=== PATIENT | female | born 1970 | race Caucasian/White ===

== ENCOUNTER 2016-12-11 10:12 | Day surgery (SDC) | payer OTHER ==
[2016-12-09 10:12] VITALS: BMI 48.0
--- NOTE | 2016-12-09 10:50 | PAT Medication Instructions ---
Service Date Dec 09, 2016. Current Home Medication List Amphetamine-Dextroamphetamine 15MG (Adderall Xr 15MG), 25 MG PO QAM Duloxetine HCl (Cymbalta), 1 CAP PO QAM Ferrous Sulfate (Kp Ferrous Sulfate), 1 TAB PO QAM Fluticasone Propionate (Nasal) (Flonase Allergy Relief), 1 SPRAYS ALYCE UD PRN for PRN Folic Acid (Folic Acid), 1 TAB PO QAM Hydrochlorothiazide (Hydrochlorothiazide), 1 TAB PO QAM Indomethacin (Indocin), 50 MG PO BID PRN for Migraine Ipratropium-Albuterol (Combivent Respimat), 1 PUFFS INH QID PRN for SOB/Wheezing Lisinopril (Zestril), 40 MG PO QAM Lorazepam (Ativan), 1 MG PO TID PRN for Anxiety Ondansetron Odt (Zofran Odt), 4 MG SL Q6H PRN for Nausea Oxycodone/Acetaminophen 10MG/325MG (Percocet 10MG/325MG), 1 TAB PO Q4 PRN for Pain Pregabalin (Lyrica), 75 MG PO QAM Pregabalin (Lyrica), 150 MG PO HS Ropinirole (Requip), 1 MG PO QPM Ropinirole (Requip), 2 MG PO HS Simvastatin (Zocor), 40 MG OR QPM Tizanidine (Zanaflex ), 4 MG PO QID PRN for Muscle Spasms Topiramate (Topamax), 100 MG PO QAM Topiramate (Topamax), 200 MG PO QPM [vitamin b12 inj], 1 DOSE IM MONTHLY Medication Instructions For Your Scheduled Surgery Indomethacin (Indocin), 50 MG PO BID PRN for Migraine (takes only with migraines ) Ondansetron Odt (Zofran Odt), 4 MG SL Q6H PRN for Nausea (takes only with migraines) Pregabalin (Lyrica) (patient will check with surgeon for instructions) Vitamin B12 Inj, 1 DOSE IM MONTHLY (continue as usual) - Hold the following medications evening prior to surgery: Ropinirole (Requip), - Hold the following medications the morning of surgery: Tizanidine (Zanaflex ), 4 MG PO QID PRN for Muscle Spasms Lisinopril (Zestril), 40 MG PO QAM Hydrochlorothiazide (Hydrochlorothiazide), 1 TAB PO QAM Folic Acid (Folic Acid), 1 TAB PO QAM Ferrous Sulfate (Kp Ferrous Sulfate), 1 TAB PO QAM Amphetamine-Dextroamphetamine 15MG (Adderall Xr 15MG), 25 MG PO QAM - Take the following medications the morning of surgery with a sip of water: Topiramate (Topamax), 100 MG PO QAM Oxycodone/Acetaminophen 10MG/325MG (Percocet 10MG/325MG), 1 TAB PO Q4 PRN for Pain (can take up to four hours prior to surgery if needed) Lorazepam (Ativan), 1 MG PO TID PRN for Anxiety Ipratropium-Albuterol (Combivent Respimat), 1 PUFFS INH QID PRN for SOB/ Wheezing (bring with you to hospital on day of surgery) Fluticasone Propionate (Nasal) (Flonase Allergy Relief), 1 SPRAYS ALYCE UD PRN for PRN Duloxetine HCl (Cymbalta), 1 CAP PO QAM - Take the following medications as scheduled the night before surgery: Topiramate (Topamax), 200 MG PO QPM Tizanidine (Zanaflex ), 4 MG PO QID PRN for Muscle Spasms Simvastatin (Zocor), 40 MG OR QPM Oxycodone/Acetaminophen 10MG/325MG (Percocet 10MG/325MG), 1 TAB PO Q4 PRN for Pain Lorazepam (Ativan), 1 MG PO TID PRN for Anxiety Ipratropium-Albuterol (Combivent Respimat), 1 PUFFS INH QID PRN for SOB/ Wheezing Fluticasone Propionate (Nasal) (Flonase Allergy Relief), 1 SPRAYS ALYCE UD PRN for PRN If you have any questions please call us at [phone] or [phone] ( [place]) or [phone]
--- NOTE | 2016-12-09 11:14 | DIAGNOSTIC IMAGING REPORT ---
CHEST PREADMISSION(PA/LAT) CLINICAL HISTORY: Preoperative chest. Chronic cough. Smoker. COMPARISON STUDY: No previous studies for comparison. FINDINGS: The heart is normal in size. There is no failure. There is no focal pulmonary consolidation. There are no pleural effusions. There are postsurgical changes present within the cervical spine.[ Slight prominence superior mediastinum, likely secondary to fat deposition given the patient's body habitus. IMPRESSION: No active disease in the chest. Electronically signed by: Diaz Love M.D. 12/09/2016 11:13 AM Dictated Date/Time: 12/09/2016 11:12 AM
[2016-12-09 11:31] LABS: BASO % 0.1 %; BASO ABS # 0.01 K/uL (0-0.2); COMPLETE YES; EOS % 0.7 %; HEMATOCRIT 43.4 % (37-47); IG% 0.2 %; LYMPH % 33.7 %; LYMPH ABS # 3.15 K/uL (1.2-3.4); MEAN CELL VOLUME 88.8 fL (80-100); MEAN CORPUSCULAR HEMOGLOBIN 30.1 pg (25-34); MEAN CORPUSCULAR HGB CONC 33.9 g/dl (32-36); MONO % 7.4 %; NEUT % 57.9 %; PLATELET COUNT 268 K/uL (130-400); RED BLOOD COUNT 4.89 M/uL (4.2-5.4); WHITE BLOOD COUNT 9.35 K/uL (4.8-10.8)
[2016-12-09 11:38] LABS: URINE APPEARANCE CLEAR (CLEAR); URINE BILIRUBIN NEG (NEG); URINE COLOR YELLOW; URINE EPITHELIAL CELL AUTO >30 /lpf (0-5); URINE NITRITE NEG (NEG); URINE PH 6.5 (4.5-7.5); URINE SPECIFIC GRAVITY 1.018 (1.000-1.030); UROBILINOGEN NEG (NEG)
[2016-12-09 11:42] LABS: MANUAL MICROSCOPIC REQUIRED? NO; PARTIAL THROMBOPLASTIN RATIO 1.1; PROTHROMBIN TIME (PATIENT) 10.3 SECONDS (9.0-12.0); REVIEW REQ? NO
[2016-12-09 11:52] LABS: BUN/CREATININE RATIO 12.8 (10-20); CALCIUM 8.4 mg/dl (8.5-10.1); CREATININE 0.61 mg/dl (0.60-1.20); POTASSIUM 4.3 mmol/L (3.5-5.1)
--- NOTE | 2016-12-10 18:54 | HISTORY & PHYSICAL EXAMINATION ---
DATE OF ADMISSION: 12/11/2016 CHIEF COMPLAINT: Left shoulder injury. HISTORY OF PRESENT ILLNESS: This is a 46-year-old female patient of Dr. Figueroa'radha complaining of a left shoulder injury status post a fall in July of 2016. She failed conservative treatment, MRI was confirmed and she does have impingement and a rotator repair the cuff tear. The patient wishes to proceed with a left shoulder arthroscopic subacromial decompression and rotator cuff repair. PAST MEDICAL HISTORY: Hypertension, hypercholesterolemia, asthma, COPD, sleep apnea with the use of CPAP, anxiety, TIA, carpal tunnel syndrome, anemia, osteoarthritis, spine problems, neck problems, sciatica, acid reflux and obesity. SOCIAL HISTORY: She is a 1-1/2 to 1 pack per day smoker for 33 years. She is a nonalcohol user. PAST SURGICAL HISTORY: Neck fusion and tonsillectomy. MEDICATIONS: 1. Ativan 1 mg 3 times daily p.r.n. 2. Combivent 1-2 puffs 4 times daily. 3. Vitamin B12 1000 mcg per month. 4. Cymbalta 30 mg q.a.m. 5. Adderall 25 mg q.a.m. 6. Ferrous sulfate 325 mg daily. 7. Hydrochlorothiazide 25 mg daily. 8. Flonase 50 mcg p.r.n. 9. Folic acid 1 mg daily. 10. Indomethacin 50 mg twice daily. 11. Lisinopril 40 mg daily. 12. Percocet as needed. 13. Requip 1 mg 2 at bedtime. 14. Simvastatin 40 mg at bedtime. 15. Zofran 4 mg as needed. 16. Lyrica 75 mg 1 in the a.m. and 2 at bedtime. ALLERGIES: No known drug allergies. PHYSICAL EXAMINATION: GENERAL: Well-developed, well-nourished 46-year-old female in no acute distress. She is alert and oriented x3 and pleasant. HEENT: Normocephalic, atraumatic. Extraocular motions are intact. Pupils are equal and reactive to light. HEART: Regular rate and rhythm, no murmurs appreciated. LUNGS: Clear. ABDOMEN: Soft, nontender, bowel sounds present. EXTREMITIES: Left shoulder reveals forward elevation, full range of motion. She has 90 degrees of abduction. She has decreased internal rotation. She has 4/5 strength with impingement pain with impingement maneuvering. NEUROLOGIC: Neurovascularly is intact in her left upper extremity. DIAGNOSES: Left shoulder impingement and rotator cuff tear. She also has a history of hypertension, hypercholesterolemia, asthma, chronic obstructive pulmonary disease, sleep apnea with the use of CPAP, chronic bronchitis, anxiety, transient ischemic attack, carpal tunnel syndrome, anemia, osteoarthritis, spine problems, neck problems, sciatica, acid reflux, and obesity. PLAN: The patient was advised of her diagnosis. Indications, risks, benefits, and postop course have all been reviewed. The patient wishes to proceed with a left shoulder arthroscopic subacromial decompression and rotator cuff repair. Necessary consent forms, preoperative testing and clearances will be obtained. IGOR
[~2016-12-11] VITALS: Ht 162.6 cm; Wt 126.4 kg
[~2016-12-11 10:12] MED LIST: AMPH15CA7 PO; ATV/1 PO; BUPIVACAINE 0.5 % 5 MG/1 ML PF 10ML VIAL ONE; CEFAZOLIN 3000 MG/65 ML D5W IV SCH; CYM/30 PO; FERR1TAB13 PO; FLUT0.15 NAE; FLV1 PO; HYDR25TA5 PO; INDO-24 PO; IPRA1AER2 INH; LACTATED RINGER'S 1000ML 1,000 ML IV SCH; LISI40TA PO; MEPIVACAINE HCL 1.5% 30 ML VIAL ONE; ONDA8TAB62 SL; OXYC-106 PO; PREG1CAP28 PO; ROPI1TAB PO; ROPI2TAB6 PO; SIMV10TA5 PO; TOPI100T20 PO; TOPI200T14 PO; ZNF4 PO; [UNRECOGNIZED DRUG - CODE] PO; vitamin b12 inj IM
[2016-12-11] MEDS ORDERED: FENTANYL CITRATE INJ 50 MCG/1 ML 2 ML VIAL ONE ×2 (10:28→12:01)
[2016-12-11] MEDS ORDERED: MIDAZOLAM HCL 1 MG/ML 2ML VIAL ONE ×2 (10:28→11:55)
[2016-12-11 10:30] VITALS: BP 173/98; PULSE 73; TEMP 36.3; O2SAT 97; Ht 162.6 cm; Wt 126.4 kg
--- NOTE | 2016-12-11 10:32 | History & Physical Bridge Note ---
H&P Re-Evaluation Bridge Note: I have examined the patient, reviewed the History & Physical and in the interval since the performance of the History & Physical I have noted the following changes of clinical significance: No changes noted
[2016-12-11] MEDS ORDERED: ROCURONIUM BROMIDE 10 MG/ML 5 ML VIAL ONE (10:33)
[2016-12-11] MEDS ORDERED: LARYING-O-JET KIT (LTA) EXT ONE ×2 (10:33)
[2016-12-11] MEDS ORDERED: PROPOFOL IV EMULSION 10 MG/ML 20 ML VIAL IV ONE (10:33)
[2016-12-11] MEDS ORDERED: LIDOCAINE HCL 2% 2 ML VIAL (20MG/ML) ONE (10:33)
[2016-12-11] MEDS ORDERED: DEXAMETHASONE SOD INJ 4 MG/ML VIAL ONE (12:53)
[2016-12-11] MEDS ORDERED: ONDANSETRON INJ 2 MG/ML 2 ML VIAL ONE (12:53)
[2016-12-11] MEDS ORDERED: PHENYLEPHRINE HCL INJ 10 MG/ML VIAL ONE (13:21)
[2016-12-11] MEDS ORDERED: PHENYLEPHRINE 100MCG/ML 5ML SYR ONE (13:21)
--- NOTE | 2016-12-11 14:01 | [facility] Operative Report ---
Operative Report Operative Date Dec 11, 2016. Pre-Operative Diagnosis Left shoulder inpingement and rotator cuff tear postraumatic but chronic tear Post-Operative Diagnosis same type 1 slap Procedure(s) Performed left shoulder arthroscopic rotator cuff repair and decompression and labral debridement Surgeon Dr Figueroa Gold Assayer Surgeon(s) Lloyd Cooley PA-C Estimated Blood Loss 3ml Findings type 1 slap ,meniscoid superior labrum, high grade bursal rotator cuff tear Specimens None per surgeon Anesthesia regional and general Complication(s) None Disposition Recovery Room / PACU Indications continued pain ,rtc tear s/p injury I attest to the content of the Intraoperative Record and any orders documented therein. Any exceptions are noted below.
[2016-12-11] MEDS ORDERED: SODIUM CHLORIDE 0.9% 1000ML 1,000 ML IV SCH (14:02)
[2016-12-11] MEDS ORDERED: OXYC-57 PO (14:04)
--- NOTE | 2016-12-11 14:08 | Discharge Instructions ---
Discharge Instructions Date of Service Dec 11, 2016. Admission Reason for Admission: Left Shoulder Impingement Syndrome, Rtc Tear Discharge Discharge Diagnosis / Problem: Left shoulder scope, rotoator cuff repair, decompression. Discharge Goals Goal(s): Improve function Activity Recommendations Activity Limitations: as noted below . Instructions / Follow-Up Instructions / Follow-Up See printed post op instruction sheet in chart See printed home exercise sheet. Begin PT next week. Pain meds as ordered. Follow up w Dr. Figueroa 10-12 days post op, call [phone] to confirm appt. Current Hospital Diet Patient's current hospital diet: Discharge Diet Recommended Diet: Regular Diet Procedures Procedures Performed: Left Shoulder Arthroscopic Subacromial Decompression, Rotator Cuff Repair Pending Studies Studies pending at discharge: no Medical Emergencies . Who to Call and When: Medical Emergencies: If at any time you feel your situation is an emergency, please call 911 immediately. . Non-Emergent Contact Non-Emergency issues call your: Primary Care Provider . "Provider Documentation" section prepared by Lloyd Cooley. VTE Core Measure Inpt VTE Proph given/why not?: SCD's [place] Drug Monitoring Program Search Results: patient reviewed within database, no issues identified
[2016-12-11] MEDS ORDERED: ATROPINE SULFATE 0.1 MG/ML 5ML SYR IV PRN (14:15)
[2016-12-11] MEDS ORDERED: ALBUTEROL 0.083% NEBU SOLN 3 ML VIAL INH PRN (14:15)
[2016-12-11] MEDS ORDERED: OXYCODONE/ACETAMINOPHEN 5-325 TAB PO PRN ×2 (14:15)
[2016-12-11] MEDS ORDERED: FLUMAZENIL 0.1 MG/1 ML 10 ML VIAL IV PRN (14:15)
[2016-12-11] MEDS ORDERED: LABETALOL HCL IV 5 MG/ML 20ML IV PRN (14:15)
[2016-12-11] MEDS ORDERED: EpHEDrine SULFATE INJ 50 MG/ML AMP IV PRN (14:15)
[2016-12-11] MEDS ORDERED: ONDANSETRON INJ 2 MG/ML 2 ML VIAL IV PRN (14:15)
[2016-12-11] MEDS ORDERED: PROMETHAZINE HCL INJ 12.5 MG in SODIUM CHLORIDE 0.9% 50ML 50 ML IV PRN (14:15)
[2016-12-11] MEDS ORDERED: NALOXONE HCL 0.4 MG/1 ML VIAL/CARP IV PRN (14:15)
--- NOTE | 2016-12-11 14:18 | Anesthesiology Progress Note ---
Anesthesia Post Op Note Date & Time Dec 11, 2016 at 14:18 Vital Signs Pain Intensity: 2 Vital Signs Past 12 Hours Date Time Temp Pulse Resp B/P Pulse Ox O2 Delivery O2 Flow Rate FiO2 12/11/16 14:01 36.1 84 16 166/80 100 Mask 10 12/11/16 10:30 36.3 73 20 173/98 97 Room Air Notes Mental Status: alert / awake / arousable, participated in evaluation Pt Amnestic to Procedure: Yes Nausea / Vomiting: adequately controlled Pain: adequately controlled Airway Patency, RR, SpO2: stable & adequate BP & HR: stable & adequate Hydration State: stable & adequate Anesthetic Complications: no major complications apparent Pt doing well.
[2016-12-11 14:45] VITALS: BP 128/73; PULSE 77; TEMP 36.7; O2SAT 100
--- NOTE | 2016-12-11 15:43 | OPERATIVE REPORT ---
DATE OF OPERATION: 12/11/2016 INDICATION FOR PROCEDURE: The patient is a 46-year-old female with history of a fall last July. She has ongoing pain, failed conservative management. MRI demonstrates rotator cuff tear with bursitis, impingement, type 3 acromion process. She is also morbidly obese with BMI of 47.8. PREOPERATIVE DIAGNOSES: Left shoulder posttraumatic, but chronic rotator cuff tear and subacromial impingement. Morbid obesity, body mass index of 47.8. POSTOPERATIVE DIAGNOSES: Same including type 1 flap tear. Morbid obesity, body mass index of 47.8. PROCEDURE: Left shoulder arthroscopic rotator cuff repair with subacromial decompression and debridement, subacromial bursa and glenoid labral tear. Some increased difficulty due to morbid obesity. SURGEON: Jerry Figueroa MD CARTON FOLDER: Lloyd Cooley PA-C ANESTHESIA: Regional block and general. DESCRIPTION OF PROCEDURE: The patient had regional block placed and then placed under general anesthetic, positioned on a Schlein shoulder table in the 70 degree beach chair position. Positioning was more difficult due to her obesity. Her left shoulder exam demonstrated an obese arm with good range of motion and no instability. The left upper extremity was prepped and draped with ChloraPrep. Arthroscopy was performed starting with a posterior arthroscopy portal in the soft spot, anterior portal in the rotator interval, a lateral portal in the subacromial space and superior lateral portals for suture anchor placement. In the glenohumeral joint, she had good articular surfaces on the glenoid and the humeral head. She had meniscoid type superior labrum, a cartilaginous cap over the superior glenoid. No clear detachment of the biceps anchor, a negative peel back sign, but did have a small anterior superior inner margin flap type tear and some fraying in the inner margin back to the posterior superior labrum. The rotator cuff looked pristine from the intraarticular view, both supraspinatus and infraspinatus and subscapularis. The biceps anchor was intact. The yared was intact. In the subacromial space, there was chronic subacromial bursitis, a high-grade bursal-sided tear of the posterior aspect of the supraspinatus right adjacent to the infraspinatus attachment. There was small tear with a width of it at the outer diameter being 8-10 mm and it was wider toward the intraarticular margin area so it was more of trapezoidal undersurface type tear with high-grade bursal component that did not go full thickness. There was a type 3 acromion with a substantial spur extending into the CA ligament and some chronic bursitis. In the glenohumeral joint, I did a debridement at the inner margin of the labrum from anterior to posterior and then in the subacromial space, I did a thorough bursectomy removing all pathological bursa. We used a 4.5 resector blade for that. I used a radiofrequency ablator to ablate the bursa and periosteum on the undersurface of the acromion and released the CA ligament off the spur of the anterior acromion process. Then I used a 5.5 bur to plane down the acromion to a type 1 flat shape and plane down some of the lateral edge of the acromion to decompress the subacromial space. The arm was taken through range of motion and rotator cuff moved freely without any impingement at this time. The rotator cuff was then repaired using the 4.5 resector blade to debride the edges of the tear, debrided the footprint of the supraspinatus to bleeding bony surface for repair and then I used a Q-Fix 2.8 mm Jiménez \T\ Nephew anchor at the lateral footprint of the supraspinatus at the edge of the tear. There was good fixation with the anchor. The sutures were passed with expresso suture passer and then tied down with [place] sliding locking knot and 3 reverse half hitches on alternating posts. It had secure fixation to the tuberosity. The repair was secured with the arm at the side with gentle rotation. The skin portal was then closed with nylon sutures. Sterile dressings were applied and a sling immobilizer. PRITESH Silva was my research lab assistant. He functioned as research lab assistant through the entire procedure. He assisted in patient positioning, prepping, draping, arm positioning, instrument and suture management during repair and performed the skin closure and dressings and sling application and will participate in postoperative care of the patient. I attest to the content of the Intraoperative Record and any orders documented therein. Any exceptio ns are noted below.
== END 2016-12-11 16:30 | disposition home or self-care (01) ==
LOC: C.ACU 10:12
PROVIDERS: ATTEND Orthopaedic Surgery Sports Medicine
DX: M75.102 Unspecified rotator cuff tear or rupture of left shoulder, not specified as traumatic (principal); M75.42 Impingement syndrome of left shoulder; E66.01 Morbid (severe) obesity due to excess calories; Z68.42 Body mass index [BMI] 45.0-49.9, adult; I10 Essential (primary) hypertension; E78.5 Hyperlipidemia, unspecified; J45.909 Unspecified asthma, uncomplicated; J44.9 Chronic obstructive pulmonary disease, unspecified; F41.9 Anxiety disorder, unspecified; D64.9 Anemia, unspecified; K21.9 Gastro-esophageal reflux disease without esophagitis; Z86.73 Personal history of transient ischemic attack (TIA), and cerebral infarction without residual deficits

== ENCOUNTER 2017-06-29 07:39 | Day surgery (SDC) | payer OTHER ==
[2017-06-29] VITALS (10 sets, daily range): BP systolic 133–153; BP diastolic 66–84; PULSE 65–79; TEMP 36.4–36.8; O2SAT 93–100; Ht 162.6 cm; Wt 122.7 kg
[~2017-06-29] VITALS: Ht 162.6 cm; Wt 122.7 kg
[~2017-06-29 07:39] MED LIST changes: -BUPIVACAINE 0.5 % 5 MG/1 ML PF 10ML VIAL ONE; -CEFAZOLIN 3000 MG/65 ML D5W IV SCH; -INDO-24 PO; -LACTATED RINGER'S 1000ML 1,000 ML IV SCH; -MEPIVACAINE HCL 1.5% 30 ML VIAL ONE; -OXYC-106 PO
[2017-06-29] MEDS ORDERED: OXYC-106 PO (08:53)
[2017-06-29] MEDS ORDERED: SERT50TA PO (08:53)
--- NOTE | 2017-06-29 10:44 | Discharge Instructions ---
Discharge Instructions Procedure Procedure Date: Jun 29, 2017. Reason for visit: Demyelinating Disorder, Poss Ms. Discharge Discharge Date: Jun 29, 2017. Discharge Diagnosis: Successful fluoroscopic guided lumbar puncture with normal opening pressure. Medications Restart Stopped Medication(s): Resume home meds Instructions Activity Recommendations: No limitations Return to School/Work: no limitations Recommended Home Diet: No Limitations Provider Instructions: Lumbar Puncture performed with Fluoroscopic guidance [ L3-4] level with [ 20G] needle. No complications. Allergies Coded Allergies: No Known Allergies (Verified , 06/29/17) Jerel Martines Recommendations: Call your doctor if: * Temperature above 101 degrees * Pain not relieved by pain medicine ordered * There is increased drainage or redness from any incision * You have any unanswered questions or concerns. Your Doctors Instructions noted above were prepared by provider Patrick Galeas. Patient Signature Section: Patient Instructions Signature Page Cris Palmer Patient (or Guardian) Signature/Date: I have read and understand the instructions given to me by my caregivers. Caregiver/RN/Doctor Signature/Date: The above-named patient and/or guardian has received patient instructions on this date. + Original Patient Signature Page (only) stays with chart. Please make copy for patient.
[2017-06-29] MEDS ORDERED: ACETAMINOPHEN 500 MG TAB PO PRN (10:45)
--- NOTE | 2017-06-29 11:10 | DIAGNOSTIC IMAGING REPORT ---
LUMBAR PUNCTURE DIAGNOSTIC CLINICAL HISTORY: 47 years-old Female presenting with MD ORDER. COMPARISON: Brain MR from 07/28/2016. PROCEDURE: The procedure, risks and benefits were discussed with the patient including the risk of spinal headache, bleeding and infection. The patient agreed to the procedure and informed written consent was obtained. The procedure was performed by Dr. Galeas following a timeout. The L2-3 interlaminar space was targeted. Skin overlying the space was prepped and draped in the usual aseptic fashion and local anesthesia was achieved with 1% lidocaine. Under intermittent fluoroscopic guidance, a 20-gauge x 4 3/4 in. Sprotte needle was inserted into the thecal sac. Opening pressure was obtained and prone positioning, which measured 21 cmH2O. A total of 8 mL of clear, colorless cerebral spinal fluid was obtained and spread amongst 4 vials. The patient tolerated the procedure well. There were no immediate complications. The specimens were sent to the laboratory at the request of the referring physician. Reference range: Normal opening pressure 6-25 cmH2O (95% reference interval for lateral decubitus positioning). Fluoroscopy dosage: Not available. mGy. Fluoroscopy time: 0.6 minutes. Number of fluoroscopic spot images: 1. IMPRESSION: 1. Successful fluoroscopic guided lumbar puncture with removal of 8 mL of clear, colorless cerebral spinal fluid. No immediate complications. 2. Normal opening pressure. Electronically signed by: Patrick Galeas M.D. 06/29/2017 11:09 AM Dictated Date/Time: 06/29/2017 11:08 AM
[2017-06-29 11:12] LABS: CSF APPEARANCE CLEAR; CSF COLOR COLORLESS; CSF XANTHOCHROMIC NO XANTHOCHROMIA
[2017-06-29 11:30] LABS: CSF CHEMISTRY TUBE # 1
[2017-06-29 11:31] LABS: CSF TOTAL PROTEIN 32.2 mg/dl (15.0-45.0)
[2017-06-29 11:52] LABS: BASO % 0.2 %; BASO ABS # 0.02 K/uL (0-0.2); COMPLETE YES; EOS % 0.9 %; HEMATOCRIT 44.3 % (37-47); IG% 0.4 %; LYMPH % 31.9 %; LYMPH ABS # 2.88 K/uL (1.2-3.4); MEAN CELL VOLUME 92.5 fL (80-100); MEAN CORPUSCULAR HEMOGLOBIN 30.9 pg (25-34); MEAN CORPUSCULAR HGB CONC 33.4 g/dl (32-36); MONO % 6.1 %; NEUT % 60.5 %; PLATELET COUNT 256 K/uL (130-400); RED BLOOD COUNT 4.79 M/uL (4.2-5.4); WHITE BLOOD COUNT 9.03 K/uL (4.8-10.8)
[2017-06-29 12:22] LABS: ALT/SGPT 15 U/L (12-78); AST/SGOT < 3 U/L (15-37); BLOOD UREA NITROGEN 7 mg/dl (7-18); BUN/CREATININE RATIO 16.6 (10-20); CALCIUM 8.3 mg/dl (8.5-10.1); CARBON DIOXIDE 24 mmol/L (21-32); CHLORIDE 108 mmol/L (98-107); CREATININE 0.43 mg/dl (0.60-1.20); GLUCOSE 96 mg/dl (70-99); POTASSIUM 3.6 mmol/L (3.5-5.1); SODIUM 140 mmol/L (136-145)
[2017-06-29 12:28] LABS: ESTIMATED AVERAGE GLUCOSE 120 mg/dl; HA1C FLAG Normal (Normal)
[2017-06-29 12:34] LABS: ALKALINE PHOSPHATASE 79 U/L (45-117); THYROID STIMULATING HORMONE 0.967 uIu/ml (0.300-4.500)
[2017-06-29 13:59] LABS: LYME DISEASE AB IGG NEG (NEG); LYME DISEASE AB IGM NEG (NEG)
[2017-07-03 08:35] LABS: ALBUMIN 3.4 g/dL (3.5-4.9); IGG CSF 5.6 mg/dL (0.8-7.7); IGG SERUM 775 mg/dL (694-1618); LYME DNA PCR CSF OR SYNOVIAL Not detected (Not Detected); LYME DNA SOURCE CSF; LYME IGG CSF NO BANDS DETECTED; LYME IGM CSF NO BANDS DETECTED; MYELIN BASIC PROTEIN 663 <2.0 mcg/L (0.0-4.0)
== END 2017-06-29 14:55 | disposition home or self-care (01) ==
LOC: C.ACU 07:39
PROVIDERS: ATTEND Psychiatry & Neurology Neurology
DX: G37.9 Demyelinating disease of central nervous system, unspecified (principal); E53.8 Deficiency of other specified B group vitamins; Z80.9 Family history of malignant neoplasm, unspecified; Z82.62 Family history of osteoporosis; R51 Headache; R20.2 Paresthesia of skin; R25.1 Tremor, unspecified; M79.1 Myalgia; E11.9 Type 2 diabetes mellitus without complications; E78.2 Mixed hyperlipidemia; R60.9 Edema, unspecified; I10 Essential (primary) hypertension; E55.9 Vitamin D deficiency, unspecified

== ENCOUNTER 2017-11-27 16:32 | Inpatient (IN) | payer OTHER ==
[~2017-11-27] VITALS: Ht 162.6 cm; Wt 125.3 kg
[~2017-11-27 16:32] MED LIST changes: -CYM/30 PO; +OXYC-106 PO; +SERT50TA PO
[2017-11-27] MEDS ORDERED: [UNRECOGNIZED DRUG - CODE] PO (17:10)
[2017-11-27] MEDS ORDERED: CYNI1000 IM (17:10)
[2017-11-27] MEDS ORDERED: TPM100 PO (17:10)
[2017-11-27] MEDS ORDERED: SIMV40TA4 PO (17:10)
[2017-11-27] MEDS ORDERED: CHOLCAP5 PO (17:10)
[2017-11-27] MEDS ORDERED: CYCL10TA6 PO (17:10)
[2017-11-27] MEDS ORDERED: FERR325T5 PO (17:10)
[2017-11-27] MEDS ORDERED: SERT1TAB68 PO (17:10)
[2017-11-27] MEDS ORDERED: AMPH20CA3 PO (17:10)
[2017-11-27] MEDS ORDERED: CPXI SC (17:10)
--- NOTE | 2017-11-27 17:36 | DIAGNOSTIC IMAGING REPORT ---
CHEST 2 VIEWS ROUTINE CLINICAL HISTORY: EVALUATE HEADACHE COMPARISON STUDY: Chest radiograph December 09, 2016. FINDINGS: Anterior cervical spine fusion is incidentally noted. Lung volumes are normal. Lungs are clear. No pneumothorax or pleural effusion is noted. There is no evidence for pulmonary edema. Cardiomediastinal silhouette is unremarkable. IMPRESSION: No acute cardiopulmonary findings. Electronically signed by: Gian Cheney M.D. 11/27/2017 5:35 PM Dictated Date/Time: 11/27/2017 5:33 PM
[2017-11-27 17:37] LABS: BASO % 0.2 %; BASO ABS # 0.03 K/uL (0-0.2); EOS % 0.5 %; EOS ABS # 0.06 K/uL (0-0.5); HEMATOCRIT 43.5 % (37-47); HEMOGLOBIN 14.6 g/dL (12.0-16.0); IG# 0.05 K/uL (0.00-0.02); LYMPH % 35.8 %; LYMPH ABS # 4.32 K/uL (1.2-3.4); MEAN CORPUSCULAR HEMOGLOBIN 30.5 pg (25-34); MEAN CORPUSCULAR HGB CONC 33.6 g/dl (32-36); MEAN PLATELET VOLUME 8.7 fL (7.4-10.4); MONO % 6.6 %; NEUT % 56.5 %; PLATELET COUNT 279 K/uL (130-400); RED CELL DISTRIBUTION WIDTH CV 13.2 % (11.5-14.5); RED CELL DISTRIBUTION WIDTH SD 43.6 fL (36.4-46.3); WHITE BLOOD COUNT 12.06 K/uL (4.8-10.8)
[2017-11-27 17:43] LABS: CALCIUM 8.8 mg/dl (8.5-10.1); CREATININE 0.74 mg/dl (0.60-1.20); POTASSIUM 3.8 mmol/L (3.5-5.1)
[2017-11-27 17:57] LABS: PTT PATIENT 24.7 SECONDS (21.0-31.0)
[2017-11-27] MEDS ORDERED: ATORVASTATIN 40 MG TAB PO STA (18:29)
[2017-11-27] MEDS ORDERED: ASPIRIN 324 MG CHEW PO STA (18:29)
--- NOTE | 2017-11-27 19:10 | EMERGENCY ROOM VISIT NOTE ---
History Report prepared by Pennie: Tommy Marrero Under the Supervision of: Dr. Aki Gregory M.D. First contact with patient: 16:34 Stated Complaint: REFFERRED BY DOCTOR. POSSIBLE BLEED History of Present Illness The patient is a 47 year old white female with a past medical history of MS who presents to the ED with a cc of waxing and waning neurologic symptoms beginning one week ago. Symptoms include right sided weakness, and headaches. Patient was transferred from [facility] due to having a brain MRI concerning for CVA ( about 7.5 hours ago). Symptoms have improved today. Positive: nausea. Negative: vomiting. No blood thinners. No recent falls. Recently on Prednisone for a migraine. No chance of . Source of History: patient Onset: A week ago Position: other (right side) Quality: other (neurologic symptoms) Timing: waxes/wanes Associated Symptoms: + headache, + nausea, + weakness (right-sided), No vomiting Review of Systems See HPI for pertinent positives and negatives. A total of ten systems were reviewed and were otherwise negative. Past Medical & Surgical Medical Problems: (1) Multiple sclerosis Family History No pertinent family history stated. Social History Smoking Status: Current Every Day Smoker Occupation Status: employed Current/Historical Medications Scheduled Amphetamine-Dextroamphetamine 20MG (Adderall Xr 20MG), 20 MG PO QAM Cholecalciferol (Vitamin D3), 5,000 INTER.UNIT PO DAILY Cyanocobalamin (Cyanocobalamin), 1,000 MCG IM MONTHLY Ferrous Sulfate (Ferrous Sulfate), 325 MG PO QAM Folic Acid (Folic Acid), 1 MG PO QAM Glatiramer Acetate (Copaxone), 20 MG SC DAILY Lisinopril (Zestril), 40 MG PO QAM Pregabalin (Lyrica), 75 MG PO QAM Pregabalin (Lyrica), 150 MG PO HS Ropinirole (Requip), 2 MG PO HS Sertraline Hcl (Zoloft), 200 MG PO DAILY Simvastatin (Zocor), 40 MG PO QPM Topiramate (Topamax), 100 MG PO QAM Topiramate (Topiramate), 200 MG PO QPM Scheduled PRN Cyclobenzaprine Hcl (Flexeril), 10 MG PO TID PRN for Muscle Spasm Fluticasone Propionate (Nasal) (Flonase Allergy Relief), 2 SPRAYS ALYCE DAILY PRN for Allergy Symptoms Ipratropium-Albuterol (Combivent Respimat), 1 PUFF INH QID PRN for SOB/Wheezing Ondansetron Odt (Zofran Odt), 8 MG SL Q6H PRN for Nausea Oxycodone/Acetaminophen 10MG/325MG (Percocet 10MG/325MG), 1-2 TABS PO Q4H PRN for Pain Allergies Coded Allergies: No Known Allergies (Verified , 06/29/17) Physical Exam Vital Signs Date Time Temp Pulse Resp B/P (MAP) Pulse Ox O2 Delivery O2 Flow Rate FiO2 11/27/17 18:40 74 18 149/83 99 Room Air 11/27/17 16:45 75 11/27/17 16:43 36.6 73 18 176/88 97 Room Air Physical Exam GENERAL: Obese. Awake, alert, well-appearing, NAD HENT: Normocephalic, atraumatic. EYES: Normal conjunctiva. Sclera non-icteric. Xanthelasma over the bilateral eyes. NECK: Supple. No nuchal rigidity. FROM. RESPIRATORY: CTAB, no rhonchi, wheezing, crackles CARDIAC: RRR, no MRG ABDOMEN: Soft, NTND, BS+ MSK: No chest wall TTP, no LE edema NEURO: CN 2-12 intact, 5/5 left upper and lower extremity strength, no dysmetria , no drift, good finger to nose, no sensory deficits. 4/5 RUE strength with flexion and extension. 4/5 RLE strength with flexion and extension. SKIN: No rash or jaundice noted. Medical Decision & Procedures ER Provider Diagnostic Interpretation: Radiology results as stated below per my review and radiologist interpretation: CHEST 2 VIEWS ROUTINE FINDINGS: Anterior cervical spine fusion is incidentally noted. Lung volumes are normal. Lungs are clear. No pneumothorax or pleural effusion is noted. There is no evidence for pulmonary edema. Cardiomediastinal silhouette is unremarkable. IMPRESSION: No acute cardiopulmonary findings. Electronically signed by: Gian Cheney M.D. 11/27/2017 5:35 PM Laboratory Results 11/27/17 17:16 Red Blood Count 4.78, Mean Corpuscular Volume 91.0, Mean Corpuscular Hemoglobin 30.5, Mean Corpuscular Hemoglobin Concent 33.6, Mean Platelet Volume 8.7, Neutrophils (%) (Auto) 56.5, Lymphocytes (%) (Auto) 35.8, Monocytes (%) (Auto) 6.6, Eosinophils (%) (Auto) 0.5, Basophils (%) (Auto) 0.2, Neutrophils # (Auto) 6.80, Lymphocytes # (Auto) 4.32, Monocytes # (Auto) 0.80, Eosinophils # (Auto) 0.06, Basophils # (Auto) 0.03 11/27/17 17:16 Test 11/27/17 16:53 11/27/17 17:16 White Blood Count 12.06 K/uL (4.8-10.8) Red Blood Count 4.78 M/uL (4.2-5.4) Hemoglobin 14.6 g/dL (12.0-16.0) Hematocrit 43.5 % (37-47) Mean Corpuscular Volume 91.0 fL (80-100) Mean Corpuscular Hemoglobin 30.5 pg (25-34) Mean Corpuscular Hemoglobin Concent 33.6 g/dl (32-36) Platelet Count 279 K/uL (130-400) Mean Platelet Volume 8.7 fL (7.4-10.4) Neutrophils (%) (Auto) 56.5 % Lymphocytes (%) (Auto) 35.8 % Monocytes (%) (Auto) 6.6 % Eosinophils (%) (Auto) 0.5 % Basophils (%) (Auto) 0.2 % Neutrophils # (Auto) 6.80 K/uL (1.4-6.5) Lymphocytes # (Auto) 4.32 K/uL (1.2-3.4) Monocytes # (Auto) 0.80 K/uL (0.11-0.59) Eosinophils # (Auto) 0.06 K/uL (0-0.5) Basophils # (Auto) 0.03 K/uL (0-0.2) RDW Standard Deviation 43.6 fL (36.4-46.3) RDW Coefficient of Variation 13.2 % (11.5-14.5) Immature Granulocyte % (Auto) 0.4 % Immature Granulocyte # (Auto) 0.05 K/uL (0.00-0.02) Prothrombin Time 10.1 SECONDS (9.0-12.0) Prothromb Time International Ratio 1.0 (0.9-1.1) Activated Partial Thromboplast Time 24.7 SECONDS (21.0-31.0) Partial Thromboplastin Ratio 1.0 Anion Gap 5.0 mmol/L (3-11) Est Creatinine Clear Calc Drug Dose 124.4 ml/min Estimated GFR () 112.6 Estimated GFR (Non- 97.2 BUN/Creatinine Ratio 12.6 (10-20) Calcium Level 8.8 mg/dl (8.5-10.1) Laboratory results reviewed by me Medications Administered Medications (Trade) Dose Ordered Sig/Vannessa Route Start Time Stop Time Status Last Admin Dose Admin Aspirin (Aspirin Chew) 324 mg NOW STAT PO 11/27/17 18:29 11/27/17 18:30 DC 11/27/17 18:47 324 MG Atorvastatin Calcium (Lipitor Tab) 40 mg ONE STAT PO 11/27/17 18:29 11/27/17 18:30 DC 11/27/17 19:15 40 MG ECG Per My Interpretation Indication: other (neurologic symptoms) Rate (beats per minute): 72 Rhythm: normal sinus Findings: T-wave inversion (lead 3. ), other (Normal axis. Normal intervals. No other STS or TWI. ) ED Course 1641: The patient was evaluated in room B4B. A complete history and physical exam was performed. 0: Upon reexamination, the patient was resting comfortably. I discussed the test results and treatment plan with her. The patient will be evaluated for further management. Medical Decision The patient is a 47 year old white female with a past medical history of MS who presents to the ED with a cc of waxing and waning neurologic symptoms beginning one week ago. Differential diagnosis: Etiologies such as metabolic, infection, hypo/hyperglycemia, electrolyte abnormalities, cardiac sources, intracerebral event, toxicologic, neurologic, as well as others were entertained. Patient was seen and evaluated at the bedside. Patient has had some neuro symptoms which include some weakness of the right side in addition to some headache. Patient does have a prior history of MS and is on Copaxone. Patient denies any falls. Patient has been on prednisone but no other blood thinning medications. Patient does have some objective deficits of the right side right upper extremity greater than right lower extremity. Patient does not have any cranial nerve deficits or visual complaints. Patient did have an MRI completed earlier today which does show watershed infarct in the left temporal frontal and occipital areas. Patient was given a full dose aspirin as well as high- dose statin. I did speak with the on-call hospitalist who agreed to further evaluate and treat the patient. I also did discuss the patient with the patient 's primary neurologist to did agree with the plan of care which would include a further stroke workup. Medication Reconcilliation Current Medication List: was personally reviewed by me Blood Pressure Screening Patient's blood pressure: Elevated blood pressure Blood pressure disposition: Referred to PCP Consults Time Called: 1649 Consulting Physician: Dr. Prado - Neurology Returned Call: [phone] Discussed the patient's case. Dr. Prado recommends the patient should be admitted to the hospital for stroke work-up. Additional Consults: Time Called: 1819 Consulted Physician: Dr. Dean Shore Hospitalist Returned Call: [phone] Additional Comments: Discussed the patient's case. The patient will be evaluated for further treatment and disposition. Impression Primary Impression: Ischemic cerebrovascular accident (CVA) Additional Impression: Right sided weakness Scribe Attestation The scribe's documentation has been prepared under my direction and personally reviewed by me in its entirety. I confirm that the note above accurately reflects all work, treatment, procedures, and medical decision making performed by me. Departure Information Dispostion Being Evaluated By Hospitalist Kevin Pimentel M.D. (PCP) Problem Qualifiers
--- NOTE | 2017-11-27 19:41 | History and Physical ---
History & Physical Date & Time of Service: Nov 27, 2017 at 19:40 Chief Complaint: Refferred By Doctor. Possible Bleed Primary Care Physician: Damaris Gibson.Carloz PA-C History of Present Illness Source: patient 47 yo F with medical hx of Multiple sclerosis , depression , migraine headache , HTN , hyperlipidemia -follows with Neurology Dr Prado Pt has been having intermittent weakness , numbness of rt arm , blurred vision , imbalance for past 1 week her rt arm sometimes feels wt , she could not control , can not use to hold any object , few hrs later symptoms resolved pt was ordered out pt MRI at [facility] -shows acute /sub acute CVA on rt Frontal , frontoparietal , occipital area report of MRI updated to neurology pt was instructed to come to [facility] ER during my interview , pt does not exhibit any focal deficit, speech fluent , no motor /sensory deficit , had left frontal headache -chronic migraine no complain of fever or chills no SOB /chest discomfort /no palpitation , no fall or syncope Social History Smoking Status: Current Every Day Smoker Housing status: lives with family Occupational Status: employed Immunizations History of Influenza Vaccine: N/A History of Tetanus Vaccine?: Yes Tetanus Immunization Date: May 29, 2004 History of Pneumococcal: No History of Hepatitis B Vaccine: No Multi-Drug Resistant Organisms History of MDRO: No Allergies Coded Allergies: No Known Allergies (Verified , 06/29/17) Home Medications Scheduled Amphetamine-Dextroamphetamine 20MG (Adderall Xr 20MG), 20 MG PO QAM Cholecalciferol (Vitamin D3), 5,000 INTER.UNIT PO DAILY Cyanocobalamin (Cyanocobalamin), 1,000 MCG IM MONTHLY Ferrous Sulfate (Ferrous Sulfate), 325 MG PO QAM Folic Acid (Folic Acid), 1 MG PO QAM Glatiramer Acetate (Copaxone), 20 MG SC DAILY Lisinopril (Zestril), 40 MG PO QAM Pregabalin (Lyrica), 75 MG PO QAM Pregabalin (Lyrica), 150 MG PO HS Ropinirole (Requip), 2 MG PO HS Sertraline Hcl (Zoloft), 200 MG PO DAILY Simvastatin (Zocor), 40 MG PO QPM Topiramate (Topamax), 100 MG PO QAM Topiramate (Topiramate), 200 MG PO QPM Scheduled PRN Cyclobenzaprine Hcl (Flexeril), 10 MG PO TID PRN for Muscle Spasm Fluticasone Propionate (Nasal) (Flonase Allergy Relief), 2 SPRAYS ALYCE DAILY PRN for Allergy Symptoms Ipratropium-Albuterol (Combivent Respimat), 1 PUFF INH QID PRN for SOB/Wheezing Ondansetron Odt (Zofran Odt), 8 MG SL Q6H PRN for Nausea Oxycodone/Acetaminophen 10MG/325MG (Percocet 10MG/325MG), 1-2 TABS PO Q4H PRN for Pain Review of Systems Constitutional: + weakness, + fatigue Eyes: + problem reported (episode of blurred vision ) Respiratory: No cough, No sputum, No wheezing, No shortness of breath, No dyspnea on exertion, No dyspnea at rest, No hemoptysis, No problem reported Cardiovascular: No chest pain, No orthopnea, No PND, No edema, No claudication , No palpitations, No problem reported Abdomen: No pain, No nausea, No vomiting, No diarrhea, No constipation, No GI bleeding, No problem reported Musculoskeletal: No joint pain, No muscle pain, No swelling, No calf pain, No problem reported Genitourinary - Female: No dysuria, No urinary frequency, No urinary urgency, No urinary incontinence, No urinary retention, No hematuria, No dysmenorrhea, No menorrhagia, No metrorrhagia, No rash, No vaginal bleeding, No vaginal discharge, No vaginal itching, No vulvodynia, No , No problem reported Neurologic: + paralysis (rt sided weakness , resolved ), + weakness (rt sided upper ext ), + balance problems Psychiatric: + depression symptoms, + anxiety Endocrine: + fatigue Physical Exam Vital Signs Date Time Temp Pulse Resp B/P (MAP) Pulse Ox O2 Delivery O2 Flow Rate FiO2 11/27/17 18:40 74 18 149/83 99 Room Air 11/27/17 16:45 75 11/27/17 16:43 36.6 73 18 176/88 97 Room Air General Appearance: no apparent distress Head: normocephalic, atraumatic Eyes: PERRL, EOMI, sclerae normal Neck: supple, no JVD, no carotid bruits, trachea midline Respiratory/Chest: lungs clear, normal breath sounds, no respiratory distress Cardiovascular: regular rate, rhythm, no edema, no JVD, no murmur, normal peripheral pulses Abdomen/GI: normal bowel sounds, non tender, soft Extremities/Musculoskelatal: normal capillary refill, + pedal edema (+ 1-2 chronic ) Neurologic/Psych: no motor/sensory deficits, alert, normal mood/affect, oriented x 3 Skin: normal color, warm/dry, no rash Lymphatic: no adenopathy Diagnostics Laboratory Results Results Past 24 Hours Test 11/27/17 16:53 11/27/17 17:16 11/27/17 19:31 Range/Units White Blood Count 12.06 4.8-10.8 K/uL Red Blood Count 4.78 4.2-5.4 M/uL Hemoglobin 14.6 12.0-16.0 g/dL Hematocrit 43.5 37-47 % Mean Corpuscular Volume 91.0 80-100 fL Mean Corpuscular Hemoglobin 30.5 25-34 pg Mean Corpuscular Hemoglobin Concent 33.6 32-36 g/dl Platelet Count 279 130-400 K/uL Mean Platelet Volume 8.7 7.4-10.4 fL Neutrophils (%) (Auto) 56.5 % Lymphocytes (%) (Auto) 35.8 % Monocytes (%) (Auto) 6.6 % Eosinophils (%) (Auto) 0.5 % Basophils (%) (Auto) 0.2 % Neutrophils # (Auto) 6.80 1.4-6.5 K/uL Lymphocytes # (Auto) 4.32 1.2-3.4 K/uL Monocytes # (Auto) 0.80 0.11-0.59 K/uL Eosinophils # (Auto) 0.06 0-0.5 K/uL Basophils # (Auto) 0.03 0-0.2 K/uL RDW Standard Deviation 43.6 36.4-46.3 fL RDW Coefficient of Variation 13.2 11.5-14.5 % Immature Granulocyte % (Auto) 0.4 % Immature Granulocyte # (Auto) 0.05 0.00-0.02 K/uL Prothrombin Time 10.1 9.0-12.0 SECONDS Prothromb Time International Ratio 1.0 0.9-1.1 Activated Partial Thromboplast Time 24.7 21.0-31.0 SECONDS Partial Thromboplastin Ratio 1.0 Sodium Level 138 136-145 mmol/L Potassium Level 3.8 3.5-5.1 mmol/L Chloride Level 107 98-107 mmol/L Carbon Dioxide Level 27 21-32 mmol/L Anion Gap 5.0 3-11 mmol/L Blood Urea Nitrogen 9 7-18 mg/dl Creatinine 0.74 0.60-1.20 mg/dl Est Creatinine Clear Calc Drug Dose 124.4 ml/min Estimated GFR () 112.6 Estimated GFR (Non- 97.2 BUN/Creatinine Ratio 12.6 10-20 Random Glucose 81 70-99 mg/dl Calcium Level 8.8 8.5-10.1 mg/dl Diagnostic Radiology MRI OF BRAIN WITH AND WITH OUT CONTRAST Done at [facility] on 11/27/17 12:06 PM Impression : Diffusion -weighted imaging demonstrates multiple small areas of restricted diffusion in the left frontal , temporal-parietal and occipital regions consistent with an acute cortica watershed infract , There is T2/FLAIR hyperintensity in the left frontal lobe and a gyral pattern , There is no intracranial Hge , midline shift, mass effect or extra -axial fluid collection Impression Assessment and Plan ACUTE /SUB ACUTE CVA : presented with intermitted rt sided neurological deficit for last 1 week MRI of Brain done in outside hospital shows acute /subacute CVA -does not have identifiable rt sided deficit now no Facial droop , motor strength and sensation intact , no pronator drift monitor in Tele ordered for Carotid Doppler /resting ECHO telemonitor to R/o Cardiac arrhythmia ordered Aspirin /Plavix neurology eval requested repeat MRI of brain in AM MULTIPLE SCLEROSIS : follows with Neurology Dr Eve Lebron HTN : BP stable will hold ACEI to allow permissive HTN in setting of acute CVA DEPRESSION : cont SSRI HX OF SPINAL STENOSIS /NEUROPATHY : on Lyrica , PRN Oxycodone continued HX OF RESTLESS SYNDROME ; Cont Requip CHRONIC MIGRAINE HEADACHE : on Topamax FULL CODE DVT PROPHYLAXIS sub q heparin DISPOSITION ; expected to be discharged home when medically stable Neurology follow up with Dr Prado Level of Care Telemetry Resuscitation Status FULL RESUSCITATION VTE Prophylaxis VTE Risk Assessment Done? Y/N: Yes Risk Level: Moderate Given or contraindicated: Unfractionated heparin SQ
[2017-11-27] MEDS ORDERED: NITROGLYCERIN 0.4 MG SL PER TAB CHARGE SL PRN (19:45)
[2017-11-27] MEDS ORDERED: ACETAMINOPHEN 325 MG TAB PO PRN (19:45)
[2017-11-27] MEDS ORDERED: MAGNESIUM HYDROXIDE SUSP 30 ML UDC PO PRN (19:45)
[2017-11-27] MEDS ORDERED: ALUMINUM/MAGNESIUM/SIMETH (MAALOX MAX) 30 ML UDC PO PRN (19:45)
[2017-11-27] MEDS ORDERED: ONDANSETRON INJ 2 MG/ML 2 ML VIAL IV PRN (19:45)
[2017-11-27] MEDS ORDERED: POLYETHYLENE (MIRALAX) 17 GM PACK PO PRN (19:45)
[2017-11-27] MEDS ORDERED: PHARMACIST DISCHARGE MED REC CONSULT PRN (19:45)
[2017-11-27 21:12] VITALS: BP 145/86; PULSE 79; TEMP 36.6; O2SAT 96; Ht 162.6 cm; Wt 125.3 kg
--- NOTE | 2017-11-27 21:24 | DIAGNOSTIC IMAGING REPORT ---
ULTRASOUND OF THE CAROTID ARTERIES CLINICAL HISTORY: Stroke COMPARISON STUDY: None. TECHNIQUE: Real-time, grayscale, and color Doppler sonography of the carotid arteries was performed. Imaging reviewed in the transverse and longitudinal planes. NASCET criteria was utilized for stenosis calcification. FINDINGS: There is moderate atherosclerotic plaque present at the left carotid bifurcation. The peak systolic velocity within the right internal carotid artery is 97 cm/sec. The systolic velocity ratio of right internal to common carotid artery is 1.0. The peak systolic velocity within the left internal carotid artery is 196 cm/sec. The systolic velocity ratio left internal to common carotid artery is 2.8. Antegrade flow is seen in the vertebral arteries. The external carotid arteries are patent. There is a multinodular thyroid gland including a circumscribed wider than tall 15 mm isoechoic left lobe nodule IMPRESSION: 50-69% stenosis of the left internal carotid artery Electronically signed by: Diaz Love M.D. 11/27/2017 9:22 PM Dictated Date/Time: 11/27/2017 9:19 PM
[2017-11-27] MEDS ORDERED: OXYCODONE/ACETAMINOPHEN 7.5-325 TAB PO ONE (22:30)
[2017-11-27 22:57] VITALS: BP 124/76; PULSE 69; TEMP 36.6; O2SAT 96
[2017-11-28] VITALS (7 sets, daily range): BP systolic 120–172; BP diastolic 79–94; PULSE 63–83; TEMP 36.5–36.8; O2SAT 94–98
[2017-11-28] MEDS ORDERED: IPRATROPIUM BROMIDE/ALBUTEROL respimat INH INH PRN (01:15)
[2017-11-28] MEDS ORDERED: NON-FORMULARY MEDICATION (Glatiramer Acetate (Copaxone) 20 MG) SC SCH (01:15)
[2017-11-28] MEDS ORDERED: ONDANSETRON 8MG OD TAB SL PRN (01:15)
[2017-11-28 06:48] LABS: HEMOGLOBIN A1C 5.9 % (4.5-5.6)
[2017-11-28] MEDS ORDERED: PERFLUTREN LIPID MICROSPHERE (DEFINITY) IV ONE (07:46)
[2017-11-28] MEDS: CYCLOBENZAPRINE HCL 10 MG TAB PO PRN (08:32)
[2017-11-28] MEDS: SERTRALINE HCL 100 MG TAB PO SCH (08:32)
[2017-11-28] MEDS: TOPIRAMATE 100 MG TAB PO SCH ×2 (08:32→20:51)
[2017-11-28] MEDS: CHOLECALCIFEROL 1000 INTER.UNIT TAB PO SCH (08:33)
[2017-11-28] MEDS: FERROUS SULFATE 325 MG TAB PO SCH (08:33)
[2017-11-28] MEDS: CLOPIDOGREL BISULFATE 75 MG TAB PO SCH (08:34)
[2017-11-28] MEDS: ASPIRIN 81 MG ECTAB PO SCH (08:34)
[2017-11-28] MEDS: PREGABALIN 75 MG CAP PO SCH ×2 (08:39→20:50)
[2017-11-28] MEDS: AMPHETAMINE ASP/SULF/DEXTRAMPH ER 20 MG CAP PO SCH (08:39)
[2017-11-28] MEDS ORDERED: ASPIRIN 81 MG ECTAB PO SCH (09:00)
[2017-11-28] MEDS ORDERED: LISINOPRIL 40 MG TAB PO SCH (09:00)
--- NOTE | 2017-11-28 09:32 | Neurology Consultation ---
Neurology Consultation Date of Consultation: Nov 28, 2017. Attending Physician: Wing Montoya M.D. Primary Care Physician: Damaris Gibson.Carloz PA-C Reason for Consultation: Stroke History of Present Illness Source: patient, hospital records The patient is a 47-year-old female with a chief complaint of weakness. The weakness affected the right side, primarily the arm although the face and leg were also involved to a lesser degree. The weakness was noted upon awakening, 3 days ago, and had been associated with a left-sided headache that began about 1 week prior. She was seen in neurology clinic at that time, and noted to have mild weakness of the right arm. She has a history of multiple sclerosis that was diagnosed about 5 months ago. She has been taking Copaxone since July. Past medical history also notable for episodic migraine. A brain MRI was recommended and completed at [facility] yesterday. I was contacted by the radiologist yesterday afternoon who informed me that her recent MRI suggested an acute left hemispheric watershed type infarct. Past medical history is also notable for hypertension, hyperlipidemia, and previous heavy tobacco use, 2 packs per day for many years. I had contacted the patient yesterday and recommended admission to the hospital for further evaluation and management of suspected recent stroke. Currently, the patient reports that her headache is modestly improved. She had been prescribed a corticosteroid taper at her appointment on Thursday. She reports that her right-sided weakness is nearly resolved although the right hand still feels slightly heavy or weak. She denies any vision loss or sensory loss at this time. She recalls having some difficulty with word finding or speech production at the time she first noted her right-sided weakness. This issue has also resolved. Past Medical/Surgical History Medical Problems: (1) Ischemic cerebrovascular accident (CVA) Status: Acute (2) Right sided weakness Status: Acute Family History Family history notable for heart disease in the mother Social History Occupation Status: employed Allergies Coded Allergies: No Known Allergies (Verified , 06/29/17) Current Inpatient Medications Current Inpatient Medications Medications (Trade) Dose Ordered Sig/Vannessa Route Start Time Stop Time Status Last Admin Dose Admin Aspirin (Ecotrin Tab) 81 mg QAM PO 11/28/17 09:00 12/28/17 08:59 11/28/17 08:34 81 MG Clopidogrel Bisulfate (plAVix TAB) 75 mg QAM PO 11/28/17 09:00 12/28/17 08:59 11/28/17 08:34 75 MG Miscellaneous Information (Pharmacist Discharge Med Rec Consult) 1 ea UD PRN N/A 11/27/17 19:45 12/27/17 19:44 Acetaminophen (Tylenol Tab) 650 mg Q4H PRN PO 11/27/17 19:45 12/27/17 19:44 Al Hydrox/Mg Hydrox/Simethicone (Maalox Max Susp) 15 ml Q4H PRN PO 11/27/17 19:45 12/27/17 19:44 Magnesium Hydroxide (Milk Of Magnesia Susp) 30 ml Q12H PRN PO 11/27/17 19:45 12/27/17 19:44 Ondansetron HCl (Zofran Inj) 4 mg Q6H PRN IV 11/27/17 19:45 12/27/17 19:44 Nitroglycerin (Nitrostat Tab) 0.4 mg UD PRN SL 11/27/17 19:45 12/27/17 19:44 Polyethylene (Miralax Powder Packet) 17 gm DAILY PRN PO 11/27/17 19:45 12/27/17 19:44 Amphetamine Aspartate/ Amphetam Sulf (Amphetamine Aspartate/Amphe Sulf/Dextramphet) 20 mg QAM PO 11/28/17 09:00 12/12/17 08:59 11/28/17 08:39 20 MG Cyclobenzaprine HCl (Flexeril Tab) 10 mg TID PRN PO 11/28/17 01:15 12/28/17 01:14 11/28/17 08:32 10 MG Ferrous Sulfate (Feosol Tab) 325 mg QAM PO 11/28/17 09:00 12/28/17 08:59 11/28/17 08:33 325 MG Folic Acid (Folvite Tab) 1 mg QAM PO 11/28/17 09:00 12/28/17 08:59 11/28/17 08:32 1 MG Albuterol/ Ipratropium (Combivent Respimat Inh) 1 puffs QID PRN INH 11/28/17 01:15 12/28/17 01:14 Ondansetron HCl (Zofran Odt) 8 mg Q6H PRN SL 11/28/17 01:15 12/28/17 01:14 Oxycodone/ Acetaminophen (Percocet 10-325MG Tab) 1 tab Q4H PRN PO 11/28/17 01:15 12/12/17 01:14 Pregabalin (Lyrica Cap) 75 mg QAM PO 11/28/17 09:00 12/28/17 08:59 11/28/17 08:39 75 MG Pregabalin (Lyrica Cap) 150 mg HS PO 11/28/17 21:00 12/28/17 20:59 Ropinirole HCl (Requip Tab) 2 mg HS PO 11/28/17 21:00 12/28/17 20:59 Sertraline HCl (Zoloft Tab) 100 mg DAILY PO 11/28/17 09:00 12/28/17 08:59 11/28/17 08:32 100 MG Simvastatin (Zocor Tab) 40 mg QPM PO 11/28/17 21:00 12/28/17 20:59 Topiramate (Topamax Tab) 200 mg QPM PO 11/28/17 21:00 12/28/17 20:59 Topiramate (Topamax Tab) 100 mg QAM PO 11/28/17 09:00 12/28/17 08:59 11/28/17 08:32 100 MG Cholecalciferol (Vitamin D Tab) 5,000 inter.unit DAILY PO 11/28/17 09:00 12/28/17 08:59 11/28/17 08:33 5,000 INTER.UNIT Miscellaneous Information (Order Awaiting Action) 1 ea QS N/A 11/28/17 08:00 12/28/17 07:59 Review of Systems Constitutional: No fever or chills Eyes: No vision loss or diplopia ENT: No vertigo or tinnitus Cardiovascular: No chest pain or palpitations Respiratory: No coughing wheezing or shortness of breath Neurological: As per history of present illness Psychiatric: No depression or anxiety Hematologic: No abnormal bruising, bleeding, or history of blood clots A full 10 point review of systems was obtained from this patient with pertinent positives and negatives described in the history of present illness and otherwise listed above. All remaining systems were reviewed and are negative. Physical Exam Vital Signs (Past 24 Hrs): Date Time Temp Pulse Resp B/P (MAP) Pulse Ox O2 Delivery O2 Flow Rate FiO2 11/28/17 07:38 36.5 63 19 120/81 (94) 96 Room Air 11/28/17 04:01 36.5 66 18 125/79 (94) 97 Room Air 11/28/17 04:00 Room Air 11/28/17 00:01 Room Air 11/27/17 22:57 36.6 69 16 124/76 (92) 96 Room Air 11/27/17 21:12 36.6 79 18 145/86 96 Room Air 11/27/17 19:44 65 16 157/92 98 Room Air 11/27/17 19:30 71 17 11/27/17 19:00 72 14 11/27/17 18:40 74 18 149/83 99 Room Air 11/27/17 16:45 75 11/27/17 16:43 36.6 73 18 176/88 97 Room Air The patient is a well-developed, well-nourished middle-aged female. She is sitting comfortably in bed, no acute distress. The patient is alert and fully oriented. Recent and remote memory intact. Attention and concentration normal. Patient exhibits a normal spontaneous speech pattern and an age-appropriate fund of knowledge. She is able to name objects and repeat phrases. Visual rose full to confrontation. Visual acuity normal. Pupils equal round reactive to light and accommodation. Eye movements normal. No nystagmus. Facial sensation normal. There is normal facial strength and symmetry. No facial droop. Hearing intact to finger rub bilaterally. Palate elevates to midline. Tongue protrudes to midline. Shoulder shrug intact bilaterally. Sensation intact to light touch, temperature, vibration, and proprioception for all 4 limbs. Deep tendon reflexes are intact and symmetrical for the arms and legs. Plantar responses downgoing bilaterally. There is no dysdiadochokinesia or dysmetria with finger to nose or heel to wu bilaterally. There is no pronator drift. Ophthalmoscopic examination reveals normal-appearing optic disks and posterior segments. No papilledema or hemorrhages. Carotid pulses normal bilaterally, no bruits to auscultation. Gait and station normal. Muscle strength and tone normal for all 4 limbs. No atrophy. No abnormal movements observed. Laboratory Results Past 24 Hours: Test 11/27/17 17:16 11/28/17 04:44 RDW Standard Deviation 43.6 fL (36.4-46.3) RDW Coefficient of Variation 13.2 % (11.5-14.5) White Blood Count 12.06 K/uL (4.8-10.8) Red Blood Count 4.78 M/uL (4.2-5.4) Hemoglobin 14.6 g/dL (12.0-16.0) Hematocrit 43.5 % (37-47) Mean Corpuscular Volume 91.0 fL (80-100) Mean Corpuscular Hemoglobin 30.5 pg (25-34) Mean Corpuscular Hemoglobin Concent 33.6 g/dl (32-36) Platelet Count 279 K/uL (130-400) Mean Platelet Volume 8.7 fL (7.4-10.4) Neutrophils (%) (Auto) 56.5 % Lymphocytes (%) (Auto) 35.8 % Monocytes (%) (Auto) 6.6 % Eosinophils (%) (Auto) 0.5 % Basophils (%) (Auto) 0.2 % Neutrophils # (Auto) 6.80 K/uL (1.4-6.5) Lymphocytes # (Auto) 4.32 K/uL (1.2-3.4) Monocytes # (Auto) 0.80 K/uL (0.11-0.59) Eosinophils # (Auto) 0.06 K/uL (0-0.5) Basophils # (Auto) 0.03 K/uL (0-0.2) Immature Granulocyte % (Auto) 0.4 % Immature Granulocyte # (Auto) 0.05 K/uL (0.00-0.02) Prothrombin Time 10.1 SECONDS (9.0-12.0) Prothromb Time International Ratio 1.0 (0.9-1.1) Activated Partial Thromboplast Time 24.7 SECONDS (21.0-31.0) Partial Thromboplastin Ratio 1.0 Est Creatinine Clear Calc Drug Dose 124.4 ml/min Estimated Average Glucose 123 mg/dl Hemoglobin A1c 5.9 % (4.5-5.6) Imaging Brain MRI report from [facility] reviewed and described in the history of present illness. A carotid ultrasound reveals a 50-69% stenosis of the left internal carotid artery An electrocardiogram reveals a normal sinus rhythm Impression Acute left hemispheric watershed infarcts as described on an outpatient MRI done at [facility] yesterday. Resolved right hemiparesis and mild expressive aphasia. 50-69% stenosis of the left internal carotid artery suggested on carotid duplex. Stroke risk factors for this patient include hypertension, hyperlipidemia, as well as a history of heavy tobacco use, 2 packs per day for many years. History of multiple sclerosis with evidence of demyelinating lesions within the cervical spinal cord, brain parenchyma, and a positive lumbar puncture recently. A recent MS exacerbation may not be completely excluded. A migrainous infarct may not be completely excluded. Plan Repeat brain MRI with and without contrast CT angiogram of the head and neck Transthoracic echocardiogram with bubble study Aspirin 81 mg per day Continue Zocor Monitor blood pressure, systolic blood pressure of 120-140 mmHg appropriate for today Continue Copaxone Continue Topamax, Lyrica, Requip I will make further recommendations pending completion of the above testing
[2017-11-28] MEDS ORDERED: OPTIRAY 320 IV PRN (09:45)
--- NOTE | 2017-11-28 10:42 | DIAGNOSTIC IMAGING REPORT ---
MRI OF THE BRAIN WITHOUT AND WITH IV CONTRAST CLINICAL HISTORY: Stroke. COMPARISON STUDY: MRI of the brain July 28, 2016. TECHNIQUE: Utilizing a 1.5 Dilcia magnet and dedicated coil, multiplanar, multiecho imaging of the brain was performed pre and postcontrast administration. IV administration of 12.5 mL of Gadavist contrast was uneventful. FINDINGS: There are multiple small foci of restricted diffusion within the left cerebral hemisphere. These involve the left frontal, parietal, temporal and occipital lobes. There is no mass effect. There is no evidence for hemorrhagic conversion. Ventricular system is unremarkable. Basilar cisterns are patent. There is no intracranial mass or pathologic enhancement. Scattered additional white matter T2 hyperintense foci are similar to MRI of July 28, 2016. Calvarial signal is diminished. This is unchanged and probably within normal limits. Orbits are unremarkable. IMPRESSION: 1. Numerous small foci of restricted diffusion within the left cerebral hemisphere. These represent acute to subacute infarcts without mass effect or evidence of hemorrhagic conversion. The infarcts could be due to an embolic event or represent watershed infarcts. 2. No significant change in additional white matter T2 hyperintense foci since MRI of July 28, 2016 which remain nonspecific however the appearance favors multiple sclerosis. Electronically signed by: Gian Cheney M.D. 11/28/2017 10:40 AM Dictated Date/Time: 11/28/2017 10:32 AM
--- NOTE | 2017-11-28 10:48 | DIAGNOSTIC IMAGING REPORT ---
MRA OF THE INTRACRANIAL CIRCULATION WITHOUT CONTRAST CLINICAL HISTORY: Stroke - Attention to [place]. COMPARISON STUDY: None. TECHNIQUE: Utilizing a 1.5 Dilcia magnet and 3-D [id number] technique, unenhanced MRA of the intracranial circulation was obtained. FINDINGS: Bilateral M1, M2, A1 and A2 segments are patent. There is no intracranial aneurysm or evidence for dissection within the intracranial vessels. No abrupt vessel cut off is identified. There is a large left posterior communicating artery. There is an anterior communicating artery. The posterior circulation is intact. IMPRESSION: Unremarkable MRA of the intracranial [place] relation. Electronically signed by: Gian Cheney M.D. 11/28/2017 10:47 AM Dictated Date/Time: 11/28/2017 10:44 AM
[2017-11-28 11:53] LABS: BASO % 0.3 %; BASO ABS # 0.03 K/uL (0-0.2); EOS % 0.7 %; EOS ABS # 0.08 K/uL (0-0.5); HEMATOCRIT 42.2 % (37-47); HEMOGLOBIN 14.4 g/dL (12.0-16.0); IG# 0.04 K/uL (0.00-0.02); LYMPH ABS # 3.38 K/uL (1.2-3.4); MEAN CELL VOLUME 90.2 fL (80-100); MEAN CORPUSCULAR HEMOGLOBIN 30.8 pg (25-34); MEAN CORPUSCULAR HGB CONC 34.1 g/dl (32-36); MEAN PLATELET VOLUME 8.6 fL (7.4-10.4); MONO % 7.9 %; MONO ABS # 0.86 K/uL (0.11-0.59); NEUT % 59.7 %; PLATELET COUNT 251 K/uL (130-400); RED CELL DISTRIBUTION WIDTH CV 13.5 % (11.5-14.5); RED CELL DISTRIBUTION WIDTH SD 43.8 fL (36.4-46.3); WHITE BLOOD COUNT 10.89 K/uL (4.8-10.8)
[2017-11-28 12:19] LABS: CALCIUM 8.7 mg/dl (8.5-10.1); CREATININE 0.62 mg/dl (0.60-1.20); POTASSIUM 3.9 mmol/L (3.5-5.1)
[2017-11-28] MEDS: OXYCODONE/ACETAMINOPHEN 10/325MG TAB PO PRN ×2 (13:50→19:39)
--- NOTE | 2017-11-28 14:26 | Progress Note ---
Internal Med Progress Note Date of Service: Nov 28, 2017. Provider Documentation: SUBJECTIVE: The patient was seen and examined Complains of some weakness in right upper extremity and Denies any other symptoms OBJECTIVE: Vital Signs-as noted below Exam: General-No distress at rest Obese Eyes-normal ENT-normal Neck-supple Lungs-clear Heart-regular Abdomen-Distended,soft,bowel sound present Extremities-Trace edema bilaterally Neuro-AAOx3 Minimal weakness right Upper Extremity Lab data as noted below. ASSESSMENT & PLAN: ACUTE /SUB ACUTE CVA : -presented with intermitted rt sided neurological deficit for last 1 week -MRI of Brain done in outside hospital shows acute /subacute CVA -no Facial droop , motor strength and sensation intact , no pronator drift -repeat MRI of the brain:: 1. Numerous small foci of restricted diffusion within the left cerebral hemisphere. These represent acute to subacute infarcts without mass effect or evidence of hemorrhagic conversion. The infarcts could be due to an embolic event or represent watershed infarcts. 2. No significant change in additional white matter T2 hyperintense foci since MRI of July 28, 2016 which remain nonspecific however the appearance favors multiple sclerosis. MRA of the Brain::Unremarkable MRA of the intracranial augustine relation. Carotid US:50-69% stenosis of the left internal carotid artery ECHO with Bubble Study-pending Repeat Scans pending Appreciate Neurology input Clinically better -continue Aspirin and Plavix for now MULTIPLE SCLEROSIS : follows with Neurology Dr Eve Lebron HTN : BP stable will hold ACEI to allow permissive HTN in setting of acute CVA DEPRESSION : cont SSRI HX OF SPINAL STENOSIS /NEUROPATHY : on Lyrica , PRN Oxycodone continued HX OF RESTLESS SYNDROME ; Cont Requip CHRONIC MIGRAINE HEADACHE : on Topamax FULL CODE DVT PROPHYLAXIS sub q heparin DISPOSITION ; expected to be discharged home when medically stable Neurology follow up with Dr Prado Vital Signs: Date Time Temp Pulse Resp B/P (MAP) Pulse Ox O2 Delivery O2 Flow Rate FiO2 11/28/17 12:00 Room Air 11/28/17 11:33 36.5 74 19 158/82 (107) 94 Nasal Cannula 2.0 11/28/17 08:00 Room Air 11/28/17 07:38 36.5 63 19 120/81 (94) 96 Room Air 11/28/17 04:01 36.5 66 18 125/79 (94) 97 Room Air 11/28/17 04:00 Room Air 11/28/17 00:01 Room Air 11/27/17 22:57 36.6 69 16 124/76 (92) 96 Room Air 11/27/17 21:12 36.6 79 18 145/86 96 Room Air 11/27/17 19:44 65 16 157/92 98 Room Air 11/27/17 19:30 71 17 11/27/17 19:00 72 14 11/27/17 18:40 74 18 149/83 99 Room Air 11/27/17 16:45 75 11/27/17 16:43 36.6 73 18 176/88 97 Room Air Lab Results: Results Past 24 Hours Test 11/27/17 17:16 11/28/17 11:27 11/28/17 11:28 Range/Units White Blood Count 12.06 10.89 4.8-10.8 K/uL Red Blood Count 4.78 4.68 4.2-5.4 M/uL Hemoglobin 14.6 14.4 12.0-16.0 g/dL Hematocrit 43.5 42.2 37-47 % Mean Corpuscular Volume 91.0 90.2 80-100 fL Mean Corpuscular Hemoglobin 30.5 30.8 25-34 pg Mean Corpuscular Hemoglobin Concent 33.6 34.1 32-36 g/dl Platelet Count 279 251 130-400 K/uL Mean Platelet Volume 8.7 8.6 7.4-10.4 fL Neutrophils (%) (Auto) 56.5 59.7 % Lymphocytes (%) (Auto) 35.8 31.0 % Monocytes (%) (Auto) 6.6 7.9 % Eosinophils (%) (Auto) 0.5 0.7 % Basophils (%) (Auto) 0.2 0.3 % Neutrophils # (Auto) 6.80 6.50 1.4-6.5 K/uL Lymphocytes # (Auto) 4.32 3.38 1.2-3.4 K/uL Monocytes # (Auto) 0.80 0.86 0.11-0.59 K/uL Eosinophils # (Auto) 0.06 0.08 0-0.5 K/uL Basophils # (Auto) 0.03 0.03 0-0.2 K/uL RDW Standard Deviation 43.6 43.8 36.4-46.3 fL RDW Coefficient of Variation 13.2 13.5 11.5-14.5 % Immature Granulocyte % (Auto) 0.4 0.4 % Immature Granulocyte # (Auto) 0.05 0.04 0.00-0.02 K/uL Prothrombin Time 10.1 9.0-12.0 SECONDS Prothromb Time International Ratio 1.0 0.9-1.1 Activated Partial Thromboplast Time 24.7 21.0-31.0 SECONDS Partial Thromboplastin Ratio 1.0 Sodium Level 138 137 136-145 mmol/L Potassium Level 3.8 3.9 3.5-5.1 mmol/L Chloride Level 107 105 98-107 mmol/L Carbon Dioxide Level 27 25 21-32 mmol/L Anion Gap 5.0 6.0 3-11 mmol/L Blood Urea Nitrogen 9 12 7-18 mg/dl Creatinine 0.74 0.62 0.60-1.20 mg/dl Est Creatinine Clear Calc Drug Dose 124.4 149.1 ml/min Estimated GFR () 112.6 125.3 Estimated GFR (Non- 97.2 108.1 BUN/Creatinine Ratio 12.6 18.7 10-20 Random Glucose 81 73 70-99 mg/dl Estimated Average Glucose 123 mg/dl Hemoglobin A1c 5.9 4.5-5.6 % Calcium Level 8.8 8.7 8.5-10.1 mg/dl Triglycerides Level 222 0-150 mg/dl Cholesterol Level 196 0-200 mg/dl HDL Cholesterol 49 mg/dl LDL Cholesterol, Calculated 103 mg/dl VLDL Cholesterol, Calculated 44 mg/dl Cholesterol/HDL Ratio 4.0
--- NOTE | 2017-11-28 19:16 | ECHOCARDIOGRAM REPORT ---
*NOTICE TO RECEIVING DEMOCRAT AGENCY This information is strictly Confidential and protected under [place] law. [place] law prohibits you from making any further disclosure of this information unless further disclosure is expressly permitted by the written consent of the person to whom it pertains or is authorized by law. A general authorization for the release of medical or other information is not sufficient for this purpose. Hospital accepts no responsibility if the information is made available to any other person, INCLUDING THE PATIENT. Interpretation Summary * Name: JARVIS MCARTHUR Study Date: 11/28/2017 07:07 AM BP: 125/79 mmHg * Patient Location: .2T\S\S238\S\1 HR: 66 * : 1970 (M/d/yyyy) Gender: Female Height: 64 in * Age: 47 yrs Ethnicity: CA Weight: 276 lb * Ordering Physician: Gia Moran * Referring Physician: Greg Prado * Performed By: Daryl Kwong RDCS * * Reason For Study: Cerebral ischemia/embolus * BSA: 2.2 m2 * -- Conclusions -- * The study is somewhat technically limited due to patient characteristics, poor acoustic windows. * The left ventricular wall motion is normal. * The LV Ejection Fraction = 60-65%. * There is mild mitral annular calcification. * There is a linear echodensity noted on image 3 (parasternal long axis) in the left atrium that appears to be acoustic reverberation from the aortic root, but is now well characterized. * There appears to be mitral annular calcification , the degree of which is premature for the patient's age. * The interatrium is grossly intact on agitated saline contrast study. * Given technical limitations, and patient's presenation of possible embolic stroke, would consider transesophageal echocardiogram for further assessment. Procedure Details * A complete two-dimensional transthoracic echocardiogram was performed (2D, M-mode, Doppler and color flow Doppler). * There were technical limitations due to patient'sbody habitus * A contrast injection of Definity was performed to improve assessment of LV function. * Contrast was injected into an intravenous site in the right arm. * One vial of Definity ultrasound contrast was diluted in normal saline to a total volume of 10 ml. A total of '3' ml of solution was administered during imaging. * Lot # [id number] of Definity utilized for procedure. * Expiration date . * The attending nurse who injected the contrast agent was Nurse, RN. * A saline contrast injection was performed to assess for cardiac shunting. * The injection was performed through an intravenous line in the right arm. * The attending nurse who injected the saline contrast was Nurse, RN. * A total of 10 cc of agitated saline was given. Left Ventricle * The left ventricle is normal in size. * There is normal left ventricular wall thickness. * Left ventricular systolic function is normal. * Ejection Fraction = 60-65%. * The left ventricular wall motion is normal. Right Ventricle * The right ventricle is normal size. * The right ventricular systolic function is normal as assessed by tricuspid annular plane systolic excursion (TAPSE) (normal >1.5 cm). Atria * The left atrial size is normal. * Right atrial size is normal. * The interatrial septum is intact with no evidence for an atrial septal defect. Mitral Valve * There is mild mitral annular calcification. * There is no mitral valve stenosis. * Significant mitral regurgitation is absent. Tricuspid Valve * The tricuspid valve is normal. * There is no tricuspid stenosis. * Significant tricuspid regurgitation is absent. * Doppler findings do not suggest pulmonary hypertension. Aortic Valve * The aortic valve is trileaflet. * Aortic stenosis is absent. * There is no significant aortic regurgitation. Pulmonic Valve * The pulmonary valve is not well seen, but the Doppler examination is normal without significant regurgitation or stenosis. Great Vessels * The aortic root and proximal ascending aorta are normal sized. Pericardium/Pleural * There is no pericardial effusion. Great Vessels * Normal inferior vena cava diameter and respiratory variation suggests normal central venous pressure. MMode 2D Measurements and Calculations IVSd 1.1 cm IVSs 1.7 cm LVIDd 4.5 cm LVIDs 2.7 cm LVPWd 1.1 cm LVPWs 1.7 cm IVS/LVPW 0.99 FS 41.1 % EDV(Teich) 93.1 ml ESV(Teich) 26.0 ml EF(Teich) 72.1 % EDV(cubed) 91.9 ml ESV(cubed) 18.8 ml EF(cubed) 79.6 % % IVS thick 57.9 % % LVPW thick 52.4 % LV mass(C)d 171.4 grams LV mass(C)dI 76.4 grams/m\S\2 LV mass(C)s 165.5 grams LV mass(C)sI 73.8 grams/m\S\2 SV(Teich) 67.1 ml SI(Teich) 29.9 ml/m\S\2 SV(cubed) 73.1 ml SI(cubed) 32.6 ml/m\S\2 Ao root diam 2.7 cm Ao root area 5.9 cm\S\2 ACS 1.6 cm LA dimension 3.4 cm asc Aorta Diam 3.1 cm LA/Ao 1.3 LVOT diam 2.0 cm LVOT area 3.1 cm\S\2 LVAd ap4 30.0 cm\S\2 LVLd ap4 8.3 cm EDV(MOD-sp4) 90.9 ml EDV(sp4-el) 92.7 ml LVAs ap4 16.3 cm\S\2 LVLs ap4 7.6 cm ESV(MOD-sp4) 32.1 ml ESV(sp4-el) 29.8 ml EF(MOD-sp4) 64.7 % EF(sp4-el) 67.9 % LVAd ap2 27.1 cm\S\2 LVLd ap2 8.0 cm EDV(MOD-sp2) 74.8 ml EDV(sp2-el) 77.9 ml LVAs ap2 14.6 cm\S\2 LVLs ap2 7.1 cm ESV(MOD-sp2) 24.4 ml ESV(sp2-el) 25.5 ml EF(MOD-sp2) 67.4 % EF(sp2-el) 67.2 % LVLd %diff -2.84 % EDV(MOD-bp) 82.5 ml LVLs %diff -8.15 % ESV(MOD-bp) 27.5 ml EF(MOD-bp) 66.6 % SV(MOD-sp4) 58.8 ml SI(MOD-sp4) 26.2 ml/m\S\2 SV(MOD-sp2) 50.4 ml SI(MOD-sp2) 22.5 ml/m\S\2 SV(MOD-bp) 55.0 ml SI(MOD-bp) 24.5 ml/m\S\2 SV(sp4-el) 62.9 ml SI(sp4-el) 28.1 ml/m\S\2 SV(sp2-el) 52.4 ml SI(sp2-el) 23.4 ml/m\S\2 Doppler Measurements and Calculations MV E max raphael 110.3 cm/sec MV A max raphael 101.2 cm/sec MV E/A 1.1 MV dec time 0.23 sec Ao V2 max 165.7 cm/sec Ao max PG 11.0 mmHg Ao max PG (full) 6.2 mmHg EDINSON(V,A) 2.0 cm\S\2 EDINSON(V,D) 2.0 cm\S\2 LV V1 max PG 4.8 mmHg LV V1 max 109.8 cm/sec PA V2 max 98.1 cm/sec PA max PG 3.9 mmHg PA acc slope 387.7 cm/sec\S\2 PA acc time 0.14 sec TR max raphael 254.0 cm/sec PA pr(Accel) 14.4 mmHg
[2017-11-28] MEDS: ROPINIROLE HCL 1 MG TAB PO SCH (20:51)
[2017-11-28] MEDS: SIMVASTATIN 40 MG TAB PO SCH (20:51)
[2017-11-29] VITALS (7 sets, daily range): BP systolic 133–171; BP diastolic 71–95; PULSE 67–87; TEMP 35–37.1; O2SAT 96–98
[2017-11-29] MEDS: OXYCODONE/ACETAMINOPHEN 10/325MG TAB PO PRN ×3 (07:37→20:49)
[2017-11-29 07:50] LABS: BASO % 0.2 %; BASO ABS # 0.02 K/uL (0-0.2); EOS % 0.9 %; EOS ABS # 0.09 K/uL (0-0.5); HEMATOCRIT 42.8 % (37-47); HEMOGLOBIN 14.5 g/dL (12.0-16.0); IG# 0.03 K/uL (0.00-0.02); LYMPH % 37.3 %; LYMPH ABS # 3.55 K/uL (1.2-3.4); MEAN CELL VOLUME 90.9 fL (80-100); MEAN CORPUSCULAR HEMOGLOBIN 30.8 pg (25-34); MEAN CORPUSCULAR HGB CONC 33.9 g/dl (32-36); MEAN PLATELET VOLUME 8.8 fL (7.4-10.4); MONO % 7.4 %; NEUT % 53.9 %; NEUT ABS # 5.12 K/uL (1.4-6.5); PLATELET COUNT 237 K/uL (130-400); RED CELL DISTRIBUTION WIDTH CV 13.2 % (11.5-14.5); RED CELL DISTRIBUTION WIDTH SD 43.5 fL (36.4-46.3); WHITE BLOOD COUNT 9.51 K/uL (4.8-10.8)
[2017-11-29] MEDS: PREGABALIN 75 MG CAP PO SCH ×2 (08:07→20:49)
[2017-11-29] MEDS: AMPHETAMINE ASP/SULF/DEXTRAMPH ER 20 MG CAP PO SCH (08:07)
[2017-11-29] MEDS: ASPIRIN 81 MG ECTAB PO SCH (08:08)
[2017-11-29] MEDS: SERTRALINE HCL 100 MG TAB PO SCH (08:09)
[2017-11-29] MEDS: TOPIRAMATE 100 MG TAB PO SCH ×2 (08:09→20:50)
[2017-11-29] MEDS: FERROUS SULFATE 325 MG TAB PO SCH (08:09)
[2017-11-29] MEDS: CHOLECALCIFEROL 1000 INTER.UNIT TAB PO SCH (08:10)
[2017-11-29] MEDS: CLOPIDOGREL BISULFATE 75 MG TAB PO SCH (08:10)
[2017-11-29 08:26] LABS: CALCIUM 8.6 mg/dl (8.5-10.1); CREATININE 0.71 mg/dl (0.60-1.20)
--- NOTE | 2017-11-29 09:46 | DIAGNOSTIC IMAGING REPORT ---
CT ANGIOGRAPHY HEAD COMBO CT DOSE: 1392.20 mGy.cm CLINICAL HISTORY: Stroke. TECHNIQUE: Unenhanced images were obtained the brain. Patient was then scanned in a dynamic helical fashion during intravenous administration of 120 cc of Optiray 320. MIP imaging was performed A dose lowering technique was utilized adhering to the principles of ALARA. COMPARISON STUDY: MRI the brain dated 11/28/2017 FINDINGS: Unenhanced images reveal a subtle left frontal hypodensity, likely secondary to an infarct. There is no evidence of acute hemorrhage. There is no midline shift. There is no hydrocephalus. CTA angiographic images reveal no major intracranial branch occlusion. There are no significant stenotic lesions. There are no lesion suspicious for aneurysm. There is no evidence of dural venous sinus thrombosis. IMPRESSION: 1. Suspected left frontal infarct 2. No evidence of aneurysm 3. No evidence of major intracranial stenosis or branch occlusion Electronically signed by: Diaz Love M.D. 11/29/2017 9:45 AM Dictated Date/Time: 11/29/2017 9:41 AM
--- NOTE | 2017-11-29 09:52 | DIAGNOSTIC IMAGING REPORT ---
CT NECK ANGIO WITH CONTRAST CLINICAL HISTORY: Stroke. Carotid stenosis. COMPARISON STUDY: Carotid Doppler ultrasound dated November 27, 2017 TECHNIQUE: CT angiography was performed from the aortic arch to the skull base. MIP imaging was performed. The patient was scanned in a dynamic helical fashion during intravenous administration of 120 cc of Optiray 320. A dose lowering technique was utilized adhering to the principles of ALARA. CT DOSE: Technique: CT angiogram of the carotid and vertebral arteries was obtained using intravenous contrast and 3-D reconstruction. NASCET criteria was utilized. Findings: The right carotid revealed no evidence of aneurysm and no evidence of dissection. There is no evidence of hemodynamic significant stenosis. There is a 68% stenosis of the proximal left internal carotid artery.. There is no evidence of hemodynamically significant vertebral stenosis. There is no evidence of vertebral dissection. There are postsurgical changes present within the cervical spine. IMPRESSION: 1. 68% stenosis of the proximal left internal carotid artery 2. No evidence of right internal carotid artery stenosis 3. No evidence of vertebral artery stenosis Electronically signed by: Diaz Love M.D. 11/29/2017 9:51 AM Dictated Date/Time: 11/29/2017 9:45 AM
--- NOTE | 2017-11-29 10:49 | Neurology Progress Notes ---
Neurology Progress Note Date of Service Nov 29, 2017. Subjective Follow-up for stroke The patient denies any weakness or numbness of the right upper limb or right side of her body at this time. She does complain of a mild headache which is been responding to medication. Brain MRI completed yesterday reveals multiple subacute to acute infarcts within the left cerebral hemisphere. The patient completed a CT angiogram of the neck this morning. There is evidence of a 68% stenosis of the left internal carotid artery. A CT angiogram of the head was unremarkable. No evidence of aneurysm, vasculitis , or occlusive lesion. A transthoracic echocardiogram was technically limited but suggested a linear hypodensity within the left atrium. A follow-up transesophageal echocardiogram has been suggested. Objective Date Time Temp Pulse Resp B/P (MAP) Pulse Ox O2 Delivery O2 Flow Rate FiO2 11/29/17 07:45 36.4 67 18 136/88 (104) 96 Room Air 11/29/17 04:00 Room Air 11/29/17 03:08 36.5 79 18 133/71 (91) 96 Room Air 11/29/17 00:00 Room Air 11/28/17 23:58 36.6 72 18 146/82 (103) 95 Room Air 11/28/17 20:00 Room Air 11/28/17 18:42 36.8 83 18 131/94 (106) 96 Room Air 11/28/17 16:00 Room Air 11/28/17 15:44 124/85 (98) 11/28/17 15:01 36.7 83 18 172/94 (120) 98 Room Air 11/28/17 12:00 Room Air 11/28/17 11:33 36.5 74 19 158/82 (107) 94 Nasal Cannula 2.0 Last 24 Hours Test 11/28/17 11:27 11/28/17 11:28 11/29/17 06:53 11/29/17 08:45 Sodium Level 137 mmol/L 139 mmol/L Potassium Level 3.9 mmol/L mmol/L 3.8 mmol/L Chloride Level 105 mmol/L 108 mmol/L Carbon Dioxide Level 25 mmol/L 25 mmol/L Anion Gap 6.0 mmol/L 7.0 mmol/L Blood Urea Nitrogen 12 mg/dl 14 mg/dl Creatinine 0.62 mg/dl 0.71 mg/dl Est Creatinine Clear Calc Drug Dose 149.1 ml/min 129.7 ml/min Estimated GFR () 125.3 118.4 Estimated GFR (Non- 108.1 102.1 BUN/Creatinine Ratio 18.7 20.1 Random Glucose 73 mg/dl 78 mg/dl Calcium Level 8.7 mg/dl 8.6 mg/dl Triglycerides Level 222 mg/dl Cholesterol Level 196 mg/dl HDL Cholesterol 49 mg/dl LDL Cholesterol, Calculated 103 mg/dl VLDL Cholesterol, Calculated 44 mg/dl Cholesterol/HDL Ratio 4.0 White Blood Count 10.89 K/uL 9.51 K/uL Red Blood Count 4.68 M/uL 4.71 M/uL Hemoglobin 14.4 g/dL 14.5 g/dL Hematocrit 42.2 % 42.8 % Mean Corpuscular Volume 90.2 fL 90.9 fL Mean Corpuscular Hemoglobin 30.8 pg 30.8 pg Mean Corpuscular Hemoglobin Concent 34.1 g/dl 33.9 g/dl Platelet Count 251 K/uL 237 K/uL Mean Platelet Volume 8.6 fL 8.8 fL Neutrophils (%) (Auto) 59.7 % 53.9 % Lymphocytes (%) (Auto) 31.0 % 37.3 % Monocytes (%) (Auto) 7.9 % 7.4 % Eosinophils (%) (Auto) 0.7 % 0.9 % Basophils (%) (Auto) 0.3 % 0.2 % Neutrophils # (Auto) 6.50 K/uL 5.12 K/uL Lymphocytes # (Auto) 3.38 K/uL 3.55 K/uL Monocytes # (Auto) 0.86 K/uL 0.70 K/uL Eosinophils # (Auto) 0.08 K/uL 0.09 K/uL Basophils # (Auto) 0.03 K/uL 0.02 K/uL RDW Standard Deviation 43.8 fL 43.5 fL RDW Coefficient of Variation 13.5 % 13.2 % Immature Granulocyte % (Auto) 0.4 % 0.3 % Immature Granulocyte # (Auto) 0.04 K/uL 0.03 K/uL Test 11/29/17 09:41 Exam: The patient is alert and fully oriented. She exhibits normal attention, concentration, recent and remote memory, naming, and repetition. Visual rose full to confrontation. Visual acuity normal. Pupils equal round reactive to light and accommodation. Eye movements normal. Facial sensation intact bilaterally. There is no facial droop or weakness. Palate elevates to midline. Shoulder shrug strength intact bilaterally. Tongue protrudes to midline. There is no pronator drift with outstretched arms bilaterally. There is no dysdiadochokinesia or dysmetria with finger to nose or heel to wu bilaterally. Strength normal for all 4 limbs. Muscle tone normal. Current Inpatient Medications Medications (Trade) Dose Ordered Sig/Vannessa Route Start Time Stop Time Status Last Admin Dose Admin Aspirin (Ecotrin Tab) 81 mg QAM PO 11/28/17 09:00 12/28/17 08:59 11/29/17 08:08 81 MG Clopidogrel Bisulfate (plAVix TAB) 75 mg QAM PO 11/28/17 09:00 12/28/17 08:59 11/29/17 08:10 75 MG Miscellaneous Information (Pharmacist Discharge Med Rec Consult) 1 ea UD PRN N/A 11/27/17 19:45 12/27/17 19:44 Acetaminophen (Tylenol Tab) 650 mg Q4H PRN PO 11/27/17 19:45 12/27/17 19:44 Al Hydrox/Mg Hydrox/Simethicone (Maalox Max Susp) 15 ml Q4H PRN PO 11/27/17 19:45 12/27/17 19:44 Magnesium Hydroxide (Milk Of Magnesia Susp) 30 ml Q12H PRN PO 11/27/17 19:45 12/27/17 19:44 Ondansetron HCl (Zofran Inj) 4 mg Q6H PRN IV 11/27/17 19:45 12/27/17 19:44 Nitroglycerin (Nitrostat Tab) 0.4 mg UD PRN SL 11/27/17 19:45 12/27/17 19:44 Polyethylene (Miralax Powder Packet) 17 gm DAILY PRN PO 11/27/17 19:45 12/27/17 19:44 Amphetamine Aspartate/ Amphetam Sulf (Amphetamine Aspartate/Amphe Sulf/Dextramphet) 20 mg QAM PO 11/28/17 09:00 12/12/17 08:59 11/29/17 08:07 20 MG Cyclobenzaprine HCl (Flexeril Tab) 10 mg TID PRN PO 2/24/18 01:15 12/28/17 01:14 11/28/17 08:32 10 MG Ferrous Sulfate (Feosol Tab) 325 mg QAM PO 11/28/17 09:00 12/28/17 08:59 11/29/17 08:09 325 MG Folic Acid (Folvite Tab) 1 mg QAM PO 11/28/17 09:00 12/28/17 08:59 11/29/17 08:08 1 MG Albuterol/ Ipratropium (Combivent Respimat Inh) 1 puffs QID PRN INH 11/28/17 01:15 12/28/17 01:14 Ondansetron HCl (Zofran Odt) 8 mg Q6H PRN SL 11/28/17 01:15 12/28/17 01:14 Oxycodone/ Acetaminophen (Percocet 10-325MG Tab) 1 tab Q4H PRN PO 11/28/17 01:15 12/12/17 01:14 11/29/17 07:37 1 TAB Pregabalin (Lyrica Cap) 75 mg QAM PO 11/28/17 09:00 12/28/17 08:59 11/29/17 08:07 75 MG Pregabalin (Lyrica Cap) 150 mg HS PO 11/28/17 21:00 12/28/17 20:59 11/28/17 20:50 150 MG Ropinirole HCl (Requip Tab) 2 mg HS PO 11/28/17 21:00 12/28/17 20:59 11/28/17 20:51 2 MG Sertraline HCl (Zoloft Tab) 100 mg DAILY PO 11/28/17 09:00 12/28/17 08:59 11/29/17 08:09 100 MG Simvastatin (Zocor Tab) 40 mg QPM PO 11/28/17 21:00 12/28/17 20:59 11/28/17 20:51 40 MG Topiramate (Topamax Tab) 200 mg QPM PO 11/28/17 21:00 12/28/17 20:59 11/28/17 20:51 200 MG Topiramate (Topamax Tab) 100 mg QAM PO 11/28/17 09:00 12/28/17 08:59 11/29/17 08:09 100 MG Cholecalciferol (Vitamin D Tab) 5,000 inter.unit DAILY PO 11/28/17 09:00 12/28/17 08:59 11/29/17 08:10 5,000 INTER.UNIT Ioversol (Optiray 320) 100 ml UD PRN IV 11/28/17 09:45 12/02/17 09:44 Non-Formulary Medication (Non-Formulary Patient'S Own Med) 1 ea HS SC 11/29/17 21:00 12/29/17 20:59 Impression Acute to subacute left hemispheric infarcts appreciated on both an outpatient MRI at [facility] and a follow-up MRI completed yesterday at [facility]. I suspect the 68% stenosis of the left internal carotid artery has been symptomatic. The significance of the potential linear hypodensity within the left atrium seen on transthoracic echocardiography is uncertain. No evidence for a recent MS exacerbation in spite of this patient's history of multiple sclerosis. Persistent mild headache. Intact neurological examination. Plan This patient will need a consultation with vascular surgery to address the left internal carotid artery stenosis which I suspect is symptomatic in her case in spite of it's estimated 68% narrowing. Transesophageal echocardiography as ordered. Hypercoagulable panel as ordered. Case discussed with hospitalist at bedside. Continue with antiplatelet therapy. However, patient should be discharged with a single antiplatelet agent. Either daily low-dose aspirin or Plavix 75 mg per day would be appropriate. She was not taking an antiplatelet agent prior to admission. Continue with Zocor. Continue with Copaxone. Patient reports that her will be bringing in her Copaxone, 20 mg per day. Please contact me if I may be of further assistance. She may follow-up with me as an outpatient for ongoing monitoring of her multiple sclerosis.
--- NOTE | 2017-11-29 14:28 | Progress Note ---
Internal Med Progress Note Date of Service: Nov 29, 2017. Provider Documentation: SUBJECTIVE: The patient was seen and examined Complains of some weakness in right upper extremity and Denies any other symptoms Right UE symptoms are improving OBJECTIVE: Vital Signs-as noted below Exam: General-No distress at rest Obese Eyes-normal ENT-normal Neck-supple Lungs-clear Heart-regular Abdomen-Distended,soft,bowel sound present Extremities-Trace edema bilaterally Neuro-AAOx3 No focal neuro deficit Lab data as noted below. ASSESSMENT & PLAN: ACUTE /SUB ACUTE CVA : -presented with intermitted rt sided neurological deficit for last 1 week -MRI of Brain done in outside hospital shows acute /subacute CVA -no Facial droop , motor strength and sensation intact , no pronator drift -repeat MRI of the brain:: 1. Numerous small foci of restricted diffusion within the left cerebral hemisphere. These represent acute to subacute infarcts without mass effect or evidence of hemorrhagic conversion. The infarcts could be due to an embolic event or represent watershed infarcts. 2. No significant change in additional white matter T2 hyperintense foci since MRI of July 28, 2016 which remain nonspecific however the appearance favors multiple sclerosis. MRA of the Brain::Unremarkable MRA of the intracranial [place] relation. Carotid US:50-69% stenosis of the left internal carotid artery ECHO:The study is somewhat technically limited due to patient characteristics, poor acoustic windows. * The left ventricular wall motion is normal. * The LV Ejection Fraction = 60-65%. * There is mild mitral annular calcification. * There is a linear echodensity noted on image 3 (parasternal long axis) in the left atrium that appears to be acoustic reverberation from the aortic root, but is now well characterized. * There appears to be mitral annular calcification , the degree of which is premature for the patient's age. * The interatrium is grossly intact on agitated saline contrast study. * Given technical limitations, and patient's presenation of possible embolic stroke, would consider transesophageal echocardiogram for further assessment. Repeat Scans pending.CTA -68% left ICA stenosis Appreciate Neurology input Clinically better -continue Aspirin and Plavix for now Consult vascular surgery for carotid embryectomy Hypercoagulable w/u ordered TERRY tomorrow MULTIPLE SCLEROSIS : follows with Neurology Dr Eve Lebron HTN : BP stable will hold ACEI to allow permissive HTN in setting of acute CVA DEPRESSION : cont SSRI HX OF SPINAL STENOSIS /NEUROPATHY : on Lyrica , PRN Oxycodone continued HX OF RESTLESS SYNDROME ; Cont Requip CHRONIC MIGRAINE HEADACHE : on Topamax FULL CODE DVT PROPHYLAXIS sub q heparin DISPOSITION ; expected to be discharged home when medically stable Neurology follow up with Dr Prado Vital Signs: Date Time Temp Pulse Resp B/P (MAP) Pulse Ox O2 Delivery O2 Flow Rate FiO2 11/29/17 12:00 Room Air 11/29/17 11:38 36.4 73 19 161/85 (110) 97 Room Air 11/29/17 08:00 Room Air 11/29/17 07:45 36.4 67 18 136/88 (104) 96 Room Air 11/29/17 04:00 Room Air 11/29/17 03:08 36.5 79 18 133/71 (91) 96 Room Air 11/29/17 00:00 Room Air 11/28/17 23:58 36.6 72 18 146/82 (103) 95 Room Air 11/28/17 20:00 Room Air 11/28/17 18:42 36.8 83 18 131/94 (106) 96 Room Air 11/28/17 16:00 Room Air 11/28/17 15:44 124/85 (98) 11/28/17 15:01 36.7 83 18 172/94 (120) 98 Room Air Lab Results: Results Past 24 Hours Test 11/29/17 06:53 11/29/17 08:45 11/29/17 10:21 Range/Units White Blood Count 9.51 4.8-10.8 K/uL Red Blood Count 4.71 4.2-5.4 M/uL Hemoglobin 14.5 12.0-16.0 g/dL Hematocrit 42.8 37-47 % Mean Corpuscular Volume 90.9 80-100 fL Mean Corpuscular Hemoglobin 30.8 25-34 pg Mean Corpuscular Hemoglobin Concent 33.9 32-36 g/dl Platelet Count 237 130-400 K/uL Mean Platelet Volume 8.8 7.4-10.4 fL Neutrophils (%) (Auto) 53.9 % Lymphocytes (%) (Auto) 37.3 % Monocytes (%) (Auto) 7.4 % Eosinophils (%) (Auto) 0.9 % Basophils (%) (Auto) 0.2 % Neutrophils # (Auto) 5.12 1.4-6.5 K/uL Lymphocytes # (Auto) 3.55 1.2-3.4 K/uL Monocytes # (Auto) 0.70 0.11-0.59 K/uL Eosinophils # (Auto) 0.09 0-0.5 K/uL Basophils # (Auto) 0.02 0-0.2 K/uL RDW Standard Deviation 43.5 36.4-46.3 fL RDW Coefficient of Variation 13.2 11.5-14.5 % Immature Granulocyte % (Auto) 0.3 % Immature Granulocyte # (Auto) 0.03 0.00-0.02 K/uL Sodium Level 139 136-145 mmol/L Potassium Level 3.8 3.5-5.1 mmol/L Chloride Level 108 98-107 mmol/L Carbon Dioxide Level 25 21-32 mmol/L Anion Gap 7.0 3-11 mmol/L Blood Urea Nitrogen 14 7-18 mg/dl Creatinine 0.71 0.60-1.20 mg/dl Est Creatinine Clear Calc Drug Dose 129.7 ml/min Estimated GFR () 118.4 Estimated GFR (Non- 102.1 BUN/Creatinine Ratio 20.1 10-20 Random Glucose 78 70-99 mg/dl Calcium Level 8.6 8.5-10.1 mg/dl
[2017-11-29] MEDS ORDERED: LISINOPRIL 20 MG TAB PO STA ×2 (16:58→17:07)
[2017-11-29] MEDS: ROPINIROLE HCL 1 MG TAB PO SCH (20:50)
[2017-11-29] MEDS: GLATIRAMER SC SCH (20:52)
[2017-11-29] MEDS: SIMVASTATIN 40 MG TAB PO SCH (20:52)
[2017-11-30] VITALS (7 sets, daily range): BP systolic 92–151; BP diastolic 59–83; PULSE 67–115; TEMP 36.5–37.1; O2SAT 94–98
[2017-11-30 07:48] LABS: BASO % 0.2 %; BASO ABS # 0.02 K/uL (0-0.2); EOS % 1.5 %; EOS ABS # 0.14 K/uL (0-0.5); HEMATOCRIT 42.7 % (37-47); HEMOGLOBIN 14.2 g/dL (12.0-16.0); IG# 0.03 K/uL (0.00-0.02); LYMPH % 35.2 %; LYMPH ABS # 3.28 K/uL (1.2-3.4); MEAN CORPUSCULAR HEMOGLOBIN 30.6 pg (25-34); MEAN CORPUSCULAR HGB CONC 33.3 g/dl (32-36); MEAN PLATELET VOLUME 8.7 fL (7.4-10.4); MONO % 7.8 %; MONO ABS # 0.73 K/uL (0.11-0.59); NEUT ABS # 5.13 K/uL (1.4-6.5); PLATELET COUNT 257 K/uL (130-400); RED CELL DISTRIBUTION WIDTH CV 13.3 % (11.5-14.5); RED CELL DISTRIBUTION WIDTH SD 44.6 fL (36.4-46.3); WHITE BLOOD COUNT 9.33 K/uL (4.8-10.8)
[2017-11-30] MEDS: AMPHETAMINE ASP/SULF/DEXTRAMPH ER 20 MG CAP PO SCH (08:03)
[2017-11-30] MEDS: TOPIRAMATE 100 MG TAB PO SCH ×2 (08:04→20:56)
[2017-11-30] MEDS: OXYCODONE/ACETAMINOPHEN 10/325MG TAB PO PRN ×3 (08:04→22:58)
[2017-11-30] MEDS: SERTRALINE HCL 100 MG TAB PO SCH (08:04)
[2017-11-30] MEDS: PREGABALIN 75 MG CAP PO SCH ×2 (08:04→20:54)
[2017-11-30] MEDS: CHOLECALCIFEROL 1000 INTER.UNIT TAB PO SCH (08:05)
[2017-11-30] MEDS: FERROUS SULFATE 325 MG TAB PO SCH (08:05)
[2017-11-30] MEDS: CLOPIDOGREL BISULFATE 75 MG TAB PO SCH (08:06)
[2017-11-30] MEDS: ASPIRIN 81 MG ECTAB PO SCH (08:07)
[2017-11-30] MEDS: PROPRANOLOL HCL 80 MG LA CAP PO SCH (08:07)
[2017-11-30 08:14] LABS: CALCIUM 8.5 mg/dl (8.5-10.1); CREATININE 0.75 mg/dl (0.60-1.20)
[2017-11-30] MEDS ORDERED: LISINOPRIL 40 MG TAB PO SCH (09:00)
--- NOTE | 2017-11-30 10:33 | Surgery Consultation ---
Consultation Date of Service Nov 30, 2017. Chief Complaint L ICA stenosis, TIA History of Present Illness The patient is a 47 year old female with hx of MS, migraine, HTN, admitted after L hemispheric event, seen in consultation today for L ICA stenosis. Pt states she had a flaccid R arm intermittently for about 1 week prior to admission. Admits associated blurry vision and states her told her that her speech was "off." Pt states she was having difficulty finding words. Admits mild MACHADO presently, but states all other sx have resolved. Denies fever, chills, chest pain, SOB, abd pain, N/V, rest pain, claudication, other complaints. Smokes 1 PPD. Imaging demonstrates 60-70% stenosis of L ICA, as well as L hemispheric ischemic event. Vitals Vital Signs Past 12 Hours Date Time Temp Pulse Resp B/P (MAP) Pulse Ox O2 Delivery O2 Flow Rate FiO2 11/30/17 08:00 Room Air 11/30/17 07:24 36.5 67 19 115/74 (88) 96 Room Air 11/30/17 04:15 36.5 70 18 92/59 (70) 97 Room Air 11/30/17 03:00 Room Air 11/30/17 00:01 36.7 79 18 109/73 (85) 98 Room Air 11/29/17 23:59 Room Air Allergies Coded Allergies: No Known Allergies (Verified , 06/29/17) Home Medications Scheduled Amphetamine-Dextroamphetamine 20MG (Adderall Xr 20MG), 20 MG PO QAM Cholecalciferol (Vitamin D3), 5,000 INTER.UNIT PO DAILY Cyanocobalamin (Cyanocobalamin), 1,000 MCG IM MONTHLY Ferrous Sulfate (Ferrous Sulfate), 325 MG PO QAM Folic Acid (Folic Acid), 1 MG PO QAM Glatiramer Acetate (Copaxone), 20 MG SC HS Lisinopril (Zestril), 40 MG PO QAM Pregabalin (Lyrica), 75 MG PO QAM Pregabalin (Lyrica), 150 MG PO HS Ropinirole (Requip), 2 MG PO HS Sertraline Hcl (Zoloft), 100 MG PO DAILY Simvastatin (Zocor), 40 MG PO QPM Topiramate (Topamax), 100 MG PO QAM Topiramate (Topiramate), 200 MG PO QPM Scheduled PRN Cyclobenzaprine Hcl (Flexeril), 10 MG PO TID PRN for Muscle Spasm Ipratropium-Albuterol (Combivent Respimat), 1 PUFF INH QID PRN for SOB/Wheezing Ondansetron Odt (Zofran Odt), 8 MG SL Q6H PRN for Nausea Oxycodone/Acetaminophen 10MG/325MG (Percocet 10MG/325MG), 1-2 TABS PO Q4H PRN for Pain Problem List Medical Problems: (1) Multiple sclerosis Surgical / Medical History Hx Cardiac Surgery: No Hx Abdominal Surgery: No Hx Cancer Surgery: No Hx Thoracic Surgery: No Hx Orthopedic: Yes (NECK FUSION, LT ROTATOR CUFF REPAIR) Hx Urinary Tract Surgery: No Past Medical/Surgical History: Hypertension, Other (MS) Family History + HTN Social History Smoking Status: Current Every Day Smoker Hx Tobacco Use In Past Year?: No Hx Alcohol Use - Type & Amnt: Yes (OCASSIONAL) Hx Substance Use -Type & Amnt: No Review of Systems Constitutional: No chills, No fever, No malaise Skin: No change in color Eyes: + visual changes ENMT: No sore throat Respiratory: No cough, No LANE, No short of breath Cardiovascular: No chest pain, No palpitations, No edema, No intermittent claudication Gastrointestinal: No abdominal pain, No nausea, No vomiting Genitourinary - Female: No dysuria, No hematuria Neurologic: + weakness (RUE, resolved), + headache, + numbness, + paresthesia Physical Exam Constitutional: General Apperance: heathly-appearing, well-nourished, well-developed Level of Distress: NAD Psychiatric: Mental Status: active & alert, normal mood, normal affect Orientation: oriented except where noted, to time, to place, to person Memory: recent memory normal, remote memory normal Head: normocephalic, atraumatic Eyes: EOM: EOMI ENMT: normal ENT inspection, hearing grossly normal Neck: supple, trachea midline Lungs: Respiratory effort: no dyspnea Auscultation: no wheezing, no rales/crackles, no rhonchi, decreased breath sounds Cardiovascular: Apical Impulse: not displaced Heart Auscultation: RRR, no rubs, no gallops Peripheral Pulses: Pulses: full and equal, in all extremities except if noted Bruits: none appreciated Carotid Pulse: normal on the left, normal on the right Brachial Pulses: normal on the left, normal on the right Radial Pulse: normal on the left, normal on the right Femoral Pulse: normal on the left, normal on the right Posterior Tibialis Pulse: decreased on the left, decreased on the right Dorsalis Pedis Pulse: decreased on the left, decreased on the right Abdomen: Bowel Sounds: normal Inspection & Palpation: soft, non-distended, no tenderness, guarding & rebound Musculoskeletal: normal strength (5/5 throughout), normal tone Extremities: Upper Right: no cyanosis, no edema, no varicosities Upper Left: no cyanosis, no edema, no varicosities Lower Right: no cyanosis, no edema, no varicosities Lower Left: no cyanosis, no edema, no varicosities Neurologic: Cranial Nerves: grossly intact Sensation: grossly intact Assessment and Plan ASSESSMENT and PLAN: L ICA stenosis TIA/CVA L hemisphere Pt also seen by Dr Anderson, recommends pt consider undergoing L CEA this week d/t complete resolution of sx. Discussed procedure, risks, with pt. Pt somewhat anxious and would prefer to discuss further tomorrow. Could schedule L CEA for THURSDAY if agreeable. If procedure not performed during this admission, pt will need referral to [facility] to have performed outpt, d/t insurance restrictions.
--- NOTE | 2017-11-30 12:00 | Progress Note ---
Internal Med Progress Note Date of Service: Nov 30, 2017. Provider Documentation: SUBJECTIVE: The patient was seen and examined Complains of some weakness in right upper extremity and Denies any other symptoms Right UE symptoms are improving and resolved -has had chronic numbness right hand OBJECTIVE: Vital Signs-as noted below Exam: General-No distress at rest Obese Eyes-normal ENT-normal Neck-supple Lungs-clear Heart-regular Abdomen-Distended,soft,bowel sound present Extremities-Trace edema bilaterally Neuro-AAOx3 No focal neuro deficit Lab data as noted below. ASSESSMENT & PLAN: ACUTE /SUB ACUTE CVA : -presented with intermitted rt sided neurological deficit for last 1 week -MRI of Brain done in outside hospital shows acute /subacute CVA -no Facial droop , motor strength and sensation intact , no pronator drift -repeat MRI of the brain:: 1. Numerous small foci of restricted diffusion within the left cerebral hemisphere. These represent acute to subacute infarcts without mass effect or evidence of hemorrhagic conversion. The infarcts could be due to an embolic event or represent watershed infarcts. 2. No significant change in additional white matter T2 hyperintense foci since MRI of July 28, 2016 which remain nonspecific however the appearance favors multiple sclerosis. MRA of the Brain::Unremarkable MRA of the intracranial [place] relation. Carotid US:50-69% stenosis of the left internal carotid artery ECHO:The study is somewhat technically limited due to patient characteristics, poor acoustic windows. * The left ventricular wall motion is normal. * The LV Ejection Fraction = 60-65%. * There is mild mitral annular calcification. * There is a linear echodensity noted on image 3 (parasternal long axis) in the left atrium that appears to be acoustic reverberation from the aortic root, but is now well characterized. * There appears to be mitral annular calcification , the degree of which is premature for the patient's age. * The interatrium is grossly intact on agitated saline contrast study. * Given technical limitations, and patient's presenation of possible embolic stroke, would consider transesophageal echocardiogram for further assessment. Repeat Scans pending.CTA -68% left ICA stenosis Appreciate Neurology input Clinically better -continue Aspirin and Plavix for now Consult vascular surgery for carotid embryectomy Hypercoagulable w/u ordered TERRY -discussed with the Oncology Specialist.will be done tomorrow Left Carotid Stenosis Appreciate Vascular Surgery input Probable Endarterectomy in a day or two MULTIPLE SCLEROSIS : follows with Neurology Dr Prado cont Vi No acute issue HTN : BP stable will hold ACEI to allow permissive HTN in setting of acute CVA BP medications have been started DEPRESSION : cont SSRI HX OF SPINAL STENOSIS /NEUROPATHY : on Lyrica , PRN Oxycodone continued HX OF RESTLESS SYNDROME ; Cont Requip CHRONIC MIGRAINE HEADACHE : on Topamax FULL CODE DVT PROPHYLAXIS sub q heparin DISPOSITION ; expected to be discharged home when medically stable Neurology follow up with Dr Prado Vital Signs: Date Time Temp Pulse Resp B/P (MAP) Pulse Ox O2 Delivery O2 Flow Rate FiO2 11/30/17 11:42 36.6 95 19 111/76 (88) 94 Room Air 11/30/17 08:00 Room Air 11/30/17 07:24 36.5 67 19 115/74 (88) 96 Room Air 11/30/17 04:15 36.5 70 18 92/59 (70) 97 Room Air 11/30/17 03:00 Room Air 11/30/17 00:01 36.7 79 18 109/73 (85) 98 Room Air 11/29/17 23:59 Room Air 11/29/17 20:00 Room Air 11/29/17 19:19 37.1 86 20 135/75 (95) 98 Room Air 11/29/17 16:43 84 141/86 (104) 11/29/17 15:30 Room Air 11/29/17 14:59 36.7 87 18 171/95 (120) 96 Room Air 11/29/17 12:00 Room Air Lab Results: Results Past 24 Hours Test 11/30/17 07:00 Range/Units White Blood Count 9.33 4.8-10.8 K/uL Red Blood Count 4.64 4.2-5.4 M/uL Hemoglobin 14.2 12.0-16.0 g/dL Hematocrit 42.7 37-47 % Mean Corpuscular Volume 92.0 80-100 fL Mean Corpuscular Hemoglobin 30.6 25-34 pg Mean Corpuscular Hemoglobin Concent 33.3 32-36 g/dl Platelet Count 257 130-400 K/uL Mean Platelet Volume 8.7 7.4-10.4 fL Neutrophils (%) (Auto) 55.0 % Lymphocytes (%) (Auto) 35.2 % Monocytes (%) (Auto) 7.8 % Eosinophils (%) (Auto) 1.5 % Basophils (%) (Auto) 0.2 % Neutrophils # (Auto) 5.13 1.4-6.5 K/uL Lymphocytes # (Auto) 3.28 1.2-3.4 K/uL Monocytes # (Auto) 0.73 0.11-0.59 K/uL Eosinophils # (Auto) 0.14 0-0.5 K/uL Basophils # (Auto) 0.02 0-0.2 K/uL RDW Standard Deviation 44.6 36.4-46.3 fL RDW Coefficient of Variation 13.3 11.5-14.5 % Immature Granulocyte % (Auto) 0.3 % Immature Granulocyte # (Auto) 0.03 0.00-0.02 K/uL Sodium Level 137 136-145 mmol/L Potassium Level 4.0 3.5-5.1 mmol/L Chloride Level 107 98-107 mmol/L Carbon Dioxide Level 23 21-32 mmol/L Anion Gap 8.0 3-11 mmol/L Blood Urea Nitrogen 12 7-18 mg/dl Creatinine 0.75 0.60-1.20 mg/dl Est Creatinine Clear Calc Drug Dose 122.8 ml/min Estimated GFR () 110.8 Estimated GFR (Non- 95.6 BUN/Creatinine Ratio 15.9 10-20 Random Glucose 82 70-99 mg/dl Calcium Level 8.5 8.5-10.1 mg/dl
[2017-11-30] MEDS: GLATIRAMER SC SCH (20:48)
[2017-11-30] MEDS: ROPINIROLE HCL 1 MG TAB PO SCH (20:55)
[2017-11-30] MEDS: SIMVASTATIN 40 MG TAB PO SCH (20:56)
[2017-11-30] MEDS: LISINOPRIL 40 MG TAB PO SCH (20:57)
[2017-11-30] MEDS: CYCLOBENZAPRINE HCL 10 MG TAB PO PRN (22:58)
[2017-12-01] VITALS (11 sets, daily range): BP systolic 95–139; BP diastolic 60–87; PULSE 64–87; TEMP 36.5–36.8; O2SAT 90–99
[2017-12-01] MEDS: AMPHETAMINE ASP/SULF/DEXTRAMPH ER 20 MG CAP PO SCH (08:50)
[2017-12-01] MEDS: TOPIRAMATE 100 MG TAB PO SCH ×2 (08:50→20:05)
[2017-12-01] MEDS: CHOLECALCIFEROL 1000 INTER.UNIT TAB PO SCH (08:51)
[2017-12-01] MEDS: FERROUS SULFATE 325 MG TAB PO SCH (08:51)
[2017-12-01] MEDS: PROPRANOLOL HCL 80 MG LA CAP PO SCH (08:51)
[2017-12-01] MEDS: ASPIRIN 81 MG ECTAB PO SCH (08:51)
[2017-12-01] MEDS: CLOPIDOGREL BISULFATE 75 MG TAB PO SCH (08:51)
[2017-12-01] MEDS: PREGABALIN 75 MG CAP PO SCH ×2 (09:05→20:03)
[2017-12-01] MEDS: OXYCODONE/ACETAMINOPHEN 10/325MG TAB PO PRN ×2 (09:24→17:57)
[2017-12-01] MEDS: SERTRALINE HCL 100 MG TAB PO SCH (10:12)
--- NOTE | 2017-12-01 10:47 | Progress Note ---
Medicine Progress Note Date & Time of Visit: Dec 01, 2017 at 10:29. Subjective Pt was seen and examined Sitting in bed with no distress Pt said that she feels ok She said that her mouth feels very dry because she cannot eat or drink anything before his procedure Denies any chest pain, palpitation, dizziness and SOB Objective Last 8 Hrs Date Time Temp Pulse Resp B/P (MAP) Pulse Ox O2 Delivery O2 Flow Rate FiO2 12/01/17 08:00 Room Air 12/01/17 07:40 36.5 64 20 113/70 (84) 97 12/01/17 04:00 Room Air 12/01/17 03:15 36.6 65 20 95/64 (74) 99 Room Air Physical Exam: General- No acute distress Head- atraumatic Eyes- PERRL, EOMI ENT- oropharynx clear Neck- supple, no JVD Lungs- No acute distress Heart- regular rhythm; no murmur Abdomen- normal bowel sounds, soft Extremities- No calf tenderness Neuro- alert, oriented x 3; PERRL, EOMI Skin- warm & dry Assessment & Plan ACUTE /SUB ACUTE CVA LEFT CEREBRAL HEMISPHERE INFARCT presented with intermitted right sided neurological deficit for last 1 week MRI of Brain done in outside hospital shows acute /subacute CVA Repeat MRI of the brain showed numerous small foci of restricted diffusion within the left cerebral hemisphere. These represent acute to subacute infarcts without mass effect or evidence of hemorrhagic conversion. The infarcts could be due to an embolic event or represent watershed infarcts. MRA of the Brain showed unremarkable MRA of the intracranial [place] relation. Carotid US showed 50-69% stenosis of the left internal carotid artery CT neck angiogram showed 68% stenosis of the proximal left internal carotid artery Neurology on board, recommended aspirin and plavix for now, but pt should be discharged with a single antiplatelet agent with either daily low-dose aspirin or Plavix 75 mg per day would be appropriate. Plan for TERRY this morning Keep NPO for now Hypercoagulable workup pending ECHO done :The study is somewhat technically limited due to patient characteristics, poor acoustic windows. * The left ventricular wall motion is normal. * The LV Ejection Fraction = 60-65%. * There is mild mitral annular calcification. * There is a linear echodensity noted on image 3 (parasternal long axis) in the left atrium that appears to be acoustic reverberation from the aortic root, but is now well characterized. * There appears to be mitral annular calcification , the degree of which is premature for the patient's age. * The interatrium is grossly intact on agitated saline contrast study. * Given technical limitations, and patient's presentation of possible embolic stroke, would consider transesophageal echocardiogram for further assessment. LEFT CAROTID ARTERY STENOSIS Carotid US showed 50-69% stenosis of the left internal carotid artery CT neck angiogram showed 68% stenosis of the proximal left internal carotid artery Plan for endarterectomy surgery on Thursday MULTIPLE SCLEROSIS : Follows with Neurology Dr Prado continue [place] No acute issue HTN BP stable On Lisinopril Monitor blood pressure DEPRESSION cont SSRI Stable HX OF SPINAL STENOSIS /NEUROPATHY : on Lyrica , PRN Oxycodone continued Stable HX OF RESTLESS SYNDROME ; Cont Requip CHRONIC MIGRAINE HEADACHE : on Topamax FULL CODE DVT PROPHYLAXIS sub q heparin DISPOSITION ; expected to be discharged home when medically stable Neurology follow up with Dr Prado Current Inpatient Medications: Current Inpatient Medications Medications (Trade) Dose Ordered Sig/Vannessa Route Start Time Stop Time Status Last Admin Dose Admin Aspirin (Ecotrin Tab) 81 mg QAM PO 11/28/17 09:00 12/28/17 08:59 12/01/17 08:51 81 MG Clopidogrel Bisulfate (plAVix TAB) 75 mg QAM PO 11/28/17 09:00 12/28/17 08:59 12/01/17 08:51 75 MG Miscellaneous Information (Pharmacist Discharge Med Rec Consult) 1 ea UD PRN N/A 11/27/17 19:45 12/27/17 19:44 Acetaminophen (Tylenol Tab) 650 mg Q4H PRN PO 11/27/17 19:45 12/27/17 19:44 Al Hydrox/Mg Hydrox/Simethicone (Maalox Max Susp) 15 ml Q4H PRN PO 11/27/17 19:45 12/27/17 19:44 Magnesium Hydroxide (Milk Of Magnesia Susp) 30 ml Q12H PRN PO 11/27/17 19:45 12/27/17 19:44 Ondansetron HCl (Zofran Inj) 4 mg Q6H PRN IV 11/27/17 19:45 12/27/17 19:44 Nitroglycerin (Nitrostat Tab) 0.4 mg UD PRN SL 11/27/17 19:45 12/27/17 19:44 Polyethylene (Miralax Powder Packet) 17 gm DAILY PRN PO 11/27/17 19:45 12/27/17 19:44 Amphetamine Aspartate/ Amphetam Sulf (Amphetamine Aspartate/Amphe Sulf/Dextramphet) 20 mg QAM PO 11/28/17 09:00 12/12/17 08:59 12/01/17 08:50 20 MG Cyclobenzaprine HCl (Flexeril Tab) 10 mg TID PRN PO 11/28/17 01:15 12/28/17 01:14 11/30/17 22:58 10 MG Ferrous Sulfate (Feosol Tab) 325 mg QAM PO 11/28/17 09:00 12/28/17 08:59 12/01/17 08:51 325 MG Folic Acid (Folvite Tab) 1 mg QAM PO 11/28/17 09:00 12/28/17 08:59 12/01/17 08:50 1 MG Albuterol/ Ipratropium (Combivent Respimat Inh) 1 puffs QID PRN INH 11/28/17 01:15 12/28/17 01:14 Ondansetron HCl (Zofran Odt) 8 mg Q6H PRN SL 11/28/17 01:15 12/28/17 01:14 Oxycodone/ Acetaminophen (Percocet 10-325MG Tab) 1 tab Q4H PRN PO 11/28/17 01:15 12/12/17 01:14 12/01/17 09:24 1 TAB Pregabalin (Lyrica Cap) 75 mg QAM PO 11/28/17 09:00 12/28/17 08:59 12/01/17 09:05 75 MG Pregabalin (Lyrica Cap) 150 mg HS PO 11/28/17 21:00 12/28/17 20:59 11/30/17 20:54 150 MG Ropinirole HCl (Requip Tab) 2 mg HS PO 11/28/17 21:00 12/28/17 20:59 11/30/17 20:55 2 MG Sertraline HCl (Zoloft Tab) 100 mg DAILY PO 11/28/17 09:00 12/28/17 08:59 12/01/17 10:12 100 MG Simvastatin (Zocor Tab) 40 mg QPM PO 11/28/17 21:00 12/28/17 20:59 11/30/17 20:56 40 MG Topiramate (Topamax Tab) 200 mg QPM PO 11/28/17 21:00 12/28/17 20:59 11/30/17 20:56 200 MG Topiramate (Topamax Tab) 100 mg QAM PO 11/28/17 09:00 12/28/17 08:59 12/01/17 08:50 100 MG Cholecalciferol (Vitamin D Tab) 5,000 inter.unit DAILY PO 11/28/17 09:00 12/28/17 08:59 12/01/17 08:51 5,000 INTER.UNIT Ioversol (Optiray 320) 100 ml UD PRN IV 11/28/17 09:45 12/02/17 09:44 Non-Formulary Medication (Non-Formulary Patient'S Own Med) 1 ea HS SC 11/29/17 21:00 12/29/17 20:59 11/30/17 20:48 1 EA Lisinopril (Zestril Tab) 40 mg QPM PO 11/30/17 21:00 12/30/17 08:59 11/30/17 20:57 40 MG Propranolol HCl (Inderal LA Cap) 80 mg QAM PO 11/30/17 09:00 12/30/17 08:59 12/01/17 08:51 80 MG
--- NOTE | 2017-12-01 11:12 | Progress Note ---
Progress Note Date of Service Dec 01, 2017. Progress Note Patient for a left CEA tomorrow. I have discussed the risks options and benefits of the procedure with the patient and her . The patient and understand the risks options and benefits and agrees to the procedure.
[2017-12-01] MEDS ORDERED: FENTANYL CITRATE INJ 50 MCG/1 ML 2 ML VIAL ONE (12:40)
[2017-12-01] MEDS ORDERED: BENZOCAIN/TETRACA/BUTAM SPRAY 200 APPLN/20 GM SPRY ONE (12:40)
[2017-12-01] MEDS ORDERED: MIDAZOLAM HCL 1 MG/ML 2ML VIAL ONE (12:40)
[2017-12-01] MEDS ORDERED: CANNULA ONE (12:41)
[2017-12-01] MEDS ORDERED: LIDOCAINE HCL 2% VISC SOLN 20 ML UDC ONE (12:41)
[2017-12-01] MEDS ORDERED: GLYCOPYRROLATE INJ 0.2 MG/ML VIAL ONE (12:41)
--- NOTE | 2017-12-01 12:53 | Pre Sedation Assessment ---
Pre Sedation Assessment General Date of Sedation: Dec 01, 2017. Vital Signs Past 12 Hours Date Time Temp Pulse Resp B/P (MAP) Pulse Ox O2 Delivery O2 Flow Rate FiO2 12/01/17 12:00 Room Air 12/01/17 11:42 36.5 69 18 100/63 (75) 96 12/01/17 08:00 Room Air 12/01/17 07:40 36.5 64 20 113/70 (84) 97 12/01/17 04:00 Room Air 12/01/17 03:15 36.6 65 20 95/64 (74) 99 Room Air Review Cardiovascular: regular rate, rhythm, no edema, no gallop, no JVD, no murmur, normal peripheral pulses Lungs: chest non-tender, lungs clear, normal breath sounds, no respiratory distress, no accessory muscle use Pre-Sedation Airway Assessment Smoking Status: Current Every Day Smoker Hx of Sleep Apnea: Yes Short Thick Neck: Yes Thyro-mental Distance: > 3 Finger Breadths Oral Cavity: Dental Abnormalities, WNL Mallampati Classification: Class II ASA Classification: Class II NPO Status Date of Last Intake of Fluids: Nov 30, 2017 Time of Last Intake of Fluids: 2358 Date of Last Intake of Solids: Nov 30, 2017 Time of Last Intake of Solids: 2358 Notes The planned sedation has been discussed with the patient. Informed Consent was obtained. I have identified the patient, determined the appropriateness of sedation and have assessed the patient immediately prior to the procedure. All medicine(s) and interventions are by my order.
--- NOTE | 2017-12-01 13:15 | Post Sedation Assessment ---
Post Sedation Assessment General Date of Sedation Dec 01, 2017. Vital Signs: Vital Signs Past 12 Hours Date Time Temp Pulse Resp B/P (MAP) Pulse Ox O2 Delivery O2 Flow Rate FiO2 12/01/17 12:00 Room Air 12/01/17 11:42 36.5 69 18 100/63 (75) 96 12/01/17 08:00 Room Air 12/01/17 07:40 36.5 64 20 113/70 (84) 97 12/01/17 04:00 Room Air 12/01/17 03:15 36.6 65 20 95/64 (74) 99 Room Air Post Procedure Recovery Score Activity: (2) Moves 4 extremities * Respiration: (2) Deep breath/cough Circulation: (2) +/-20% PreAnes Value Consciousness: (2) Fully Awake Oxygen Saturation: (2) > 92% On Room Air Discharge Sedation Level of Care: Fast Track Phase II Post Sedation Plan On clinical assessment, the patient appears to have tolerated the sedation without complications. Patient is recovering as anticipated. Patient will continue to be monitored by nursing and may be discharged when sedation discharge criteria are met per below protocol. Upon Completions of procedure and additional 15 minutes continue every 5 minute vital signs and the P.A.R. score; then discharge to a Phase I or Fast Track to Phase II per the following guidelines: * Discharge Patient to appropriate Phase II area if PAR is 8 or greater or return to pre- procedure baseline. The post - procedure orders will be as directed. * If PAR score is less than 8 or not return to pre-procedure baseline then patient will follow Phase I monitoring till PAR is reached for Phase II. The Phase I may be done in procedure room or may call to secure a Phase I area. * If naloxone or flumazenil are used for reversal, hold in Phase I for an additional 60 -120 minutes before discharge to Phase II. Please call the Sedation Physician to re-evaluate and complete post-note for discharge to Phase II area. Do NOT discharge from procedure sedation or Phase 1 until post- sedation evaluation note is complete by procedure /sedation MD Sedation Discharge Instructions to be given to the patient at discharge to home.
--- NOTE | 2017-12-01 13:17 | [facility] Post Operative Brief Note ---
Immediate Operative Summary Operative Date Dec 01, 2017. Pre-Operative Diagnosis possible left atrial mass Post-Operative Diagnosis no mass Procedure(s) Performed TERRY Start time: Stop time: conscious sedation with Versed 3mg and Fentanyl 50mcg Surgeon Octaviano Credit Products Officer Surgeon(s) Briana WEBSTER Estimated Blood Loss none Findings See Below mild mitral annular calcification otherwise, structurally normal heart. Specimens none Drains None Anesthesia Type IV Sedat Cons RN Only Complication(s) none Disposition Disposition: cpl
--- NOTE | 2017-12-01 13:45 | TEE ---
*NOTICE TO RECEIVING [employer] This information is strictly Confidential and protected under [place] law. [place] law prohibits you from making any further disclosure of this information unless further disclosure is expressly permitted by the written consent of the person to whom it pertains or is authorized by law. A general authorization for the release of medical or other information is not sufficient for this purpose. Hospital accepts no responsibility if the information is made available to any other person, INCLUDING THE PATIENT. Interpretation Summary * Name: JARVIS MCARTHUR Study Date: 12/01/2017 12:04 PM BP: 101/72 mmHg * Patient Location: C.2T\S\S236\S\1 HR: 75 * : 1970 (M/d/yyyy) Gender: Female Height: 64 in * Age: 47 yrs Ethnicity: [place] Weight: 276 lb * Ordering Physician: Wing Montoya * Referring Physician: rGeg Prado * Performed By: Daniella Orta RDCS * * Reason For Study: CIE * BSA: 2.2 m2 * -- Conclusions -- * Robinul 0.4 mg administered for to reduce oral secretions. * Normal LV chamber size. * Normal LV systolic function, EF 60-65%. * No segmental left ventricular wall motion abnormalities are noted. * Mild mitral annular calcifications without stenosis or regurgitation. * No left atrial mass or thrombus visualized. * The interatrial septum is intact with no evidence for an atrial septal defect. Procedure Details * The transesophageal portion of this study was personally supervised by the undersigned interpreting physician. * TERRY Probe #2 utilized for procedure. * The study was performed in Cardiac Catheterization Lab. * Time out was conducted by the physician, nurse, and wind turbine blade repair technician with positive identification of patient and procedure. * Informed consent for Transesophageal Echocardiogram was obtained prior to the procedure. * An intravenous line was placed. A topical anesthetic agent was used for oropharangeal anesthesia. A bite block was inserted. * The patient's vital signs, including blood pressure, heart rate, pulse oximetry and cardiac rhythm were monitored throughout the procedure . * Fentanyl 50 mcg was administered for procedural sedation. * Robinul 0.4 mg administered for to reduce oral secretions. * Midazolam 3 mg administered for sedation. * The posterior oropharynx was anesthetized using a topical anesthetic spray. A bite guard was inserted. * A multifrequency, multiplane transesopheageal echocardiographic endoscope was inserted and manipulated in the standard fashion to achieve multiplane views. * The transesophageal probe was passed without difficulty. * The usual views were obtained; basal, mid-esophageal, transgastric and aortic views. * The patient tolerated the procedure well without evidence of orophangeal or esophageal trauma. * A 2D transesophageal echocardiogram with spectral and color flow Doppler was performed. * Contrast injection with agitated saline was performed. * A 2D transesophageal echocardiogram with Doppler and color flow Doppler was performed. Left Ventricle * The left ventricle is normal in size. * Left ventricular systolic function is normal. * No segmental left ventricular wall motion abnormalities are noted. * Ejection Fraction = 60-65%. * The left ventricular wall motion is normal. Atria * The left atrial size is normal. * No left atrial mass or thrombus visualized. * Right atrial size is normal. * The interatrial septum is intact with no evidence for an atrial septal defect. Mitral Valve * There is mild mitral annular calcification. * There is no mitral valve stenosis. * There is no mitral regurgitation noted. Tricuspid Valve * The tricuspid valve is normal in structure and function. Aortic Valve * The aortic valve is normal in structure and function. Pulmonic Valve * The pulmonary valve is not well seen, but the Doppler examination is normal without significant regurgitation or stenosis. Great Vessels * The aortic root and proximal ascending aorta are normal sized. Pericardium * There is no pericardial effusion.
--- NOTE | 2017-12-01 15:28 | Anesthesiology Progress Note ---
Anesthesia Progress Note Date of Service Dec 01, 2017. Progress Notes Patient scheduled for left carotid endarterectomy with Monica. PMH significant for MS (but still able to independently ambulate), spinal stenosis, RLS, HTN, HLD, obesity and tobacco abuse. Patient was admitted for CVA with right arm numbness, blurred vision, and imbalance. Symptoms have fully resolved, but work up revealed 60-70% stenosis of L ICA. No problems with prior anesthesia. Normal exam with adequate airway other than short thick neck. Patient advised to remain NPO after midnight except for a sip of water with morning pills. Please hold lisinopril in the morning. Violet Rivera MD, PhD Anesthesiology
[2017-12-01] MEDS: LISINOPRIL 40 MG TAB PO SCH (20:05)
[2017-12-01] MEDS: ROPINIROLE HCL 1 MG TAB PO SCH (20:06)
[2017-12-01] MEDS: SIMVASTATIN 40 MG TAB PO SCH (20:06)
[2017-12-01] MEDS: GLATIRAMER SC SCH (20:11)
[2017-12-02] VITALS (16 sets, daily range): BP systolic 101–165; BP diastolic 50–96; PULSE 65–80; TEMP 36.3–36.9; O2SAT 96–99
[2017-12-02] MEDS ORDERED: CEFAZOLIN 3000MG IV PUSH 22.5 ML IV SCH (06:00)
[2017-12-02] MEDS ORDERED: CEFAZOLIN IV 3,000 MG in DEXTROSE 5% 50ML 50 ML IV SCH (06:00)
[2017-12-02] MEDS ORDERED: ONDANSETRON INJ 2 MG/ML 2 ML VIAL ONE (06:25)
[2017-12-02] MEDS ORDERED: DEXAMETHASONE SOD INJ 4 MG/ML VIAL ONE (06:25)
[2017-12-02] MEDS ORDERED: PROPOFOL IV EMULSION 10 MG/ML 20 ML VIAL IV ONE ×2 (06:25→11:07)
[2017-12-02] MEDS ORDERED: FENTANYL CITRATE INJ 50 MCG/1 ML 2 ML VIAL ONE (06:25)
[2017-12-02] MEDS ORDERED: MIDAZOLAM HCL 1 MG/ML 2ML VIAL ONE (06:25)
[2017-12-02] MEDS ORDERED: ROCURONIUM BROMIDE 10 MG/ML 5 ML VIAL IV ONE ×2 (06:25→09:47)
[2017-12-02] MEDS ORDERED: LIDOCAINE HCL 2% 2 ML VIAL (20MG/ML) ONE ×2 (06:25→06:58)
[2017-12-02] MEDS ORDERED: CEFAZOLIN SOD 1 GM VIAL ONE ×2 (07:01→08:47)
[2017-12-02] MEDS ORDERED: GELATIN SPONGE SZ 100 ONE (07:01)
[2017-12-02] MEDS ORDERED: THROMBIN FOR SOLN 20000 UNIT KIT ONE (07:01)
[2017-12-02] MEDS ORDERED: BUPIVACAINE/EPINEPHRINE 0.5% MPF 1:200,000 30 ML VIAL ONE (07:01)
[2017-12-02] MEDS ORDERED: HEPARIN SOD (PORCINE) 1000 UNIT/ML 10 ML VIAL ONE ×2 (07:02→08:47)
[2017-12-02] MEDS ORDERED: ONDANSETRON INJ 2 MG/ML 2 ML VIAL IV PRN ×2 (07:15→11:15)
[2017-12-02] MEDS ORDERED: ATROPINE SULFATE 0.1 MG/ML 5ML SYR IV PRN (07:15)
[2017-12-02] MEDS ORDERED: EpHEDrine SULFATE INJ 50 MG/ML AMP IV PRN (07:15)
--- NOTE | 2017-12-02 07:57 | Progress Note ---
Progress Note Date of Service Dec 02, 2017. Progress Note Patient for left CEA. I have discussed the risks options and benefits of the procedure with the patient. The patient understands the risks options and benefits and agrees to the procedure. I have examined the patient, reviewed the History & Physical and in the interval since the performance of the History & Physical I have noted the following changes of clinical significance: No changes noted
[2017-12-02] MEDS ORDERED: PHENYLEPHRINE HCL INJ 10 MG/ML VIAL ONE (08:47)
[2017-12-02] MEDS: LIDOCAINE HCL 1% 20 ML VIAL ONE ×2 (09:24→15:21)
[2017-12-02] MEDS ORDERED: NEOSTIGMINE METHYLSULFATE 5 MG/5 ML SYR ONE (10:15)
[2017-12-02] MEDS ORDERED: GLYCOPYRROLATE INJ 0.2 MG/ML VIAL ONE (10:15)
[2017-12-02] MEDS ORDERED: METOPROLOL TARTRATE 1 MG/ML VIAL ONE (11:10)
[2017-12-02] MEDS ORDERED: METOPROLOL TARTRATE 1 MG/ML VIAL IV PRN (11:15)
[2017-12-02] MEDS ORDERED: MoRPHine SULFATE 4 MG/ML 1 ML CARP\\VIAL IV PRN (11:15)
[2017-12-02] MEDS ORDERED: NITROGLYCERIN/D5W 100 MCG/ML 250 ML IV PRN (11:15)
[2017-12-02] MEDS ORDERED: PHENYLEPHRINE HCL INJ 20 MG in DEXTROSE 5% 500ML 500 ML IV PRN (11:15)
--- NOTE | 2017-12-02 11:15 | [facility] Post Operative Brief Note ---
Immediate Operative Summary Operative Date Dec 02, 2017. Pre-Operative Diagnosis Symptomatic Left Internal Carotid Artery Stenosis Post-Operative Diagnosis Symptomatic Left Internal Carotid Artery Stenosis Procedure(s) Performed Left Carotid Endartectomy with Patch Surgeon Dr. Francisco Anderson Electrical Appliance Mechanic Surgeon(s) Ragini Casillas PA-c and Dr. Ofelia Lamas Fellow Estimated Blood Loss 80 ml Findings Consistent with Post-Op Diagnosis Specimens A: Plaque Drains None Anesthesia Type General Complication(s) none Disposition Accompanied Pt To Recover: no Disposition: Recovery Room / PACU
[2017-12-02] MEDS: FENTANYL CITRATE INJ 50 MCG/1 ML 2 ML VIAL IV PRN ×2 (12:11→12:17)
--- NOTE | 2017-12-02 12:32 | Anesthesiology Progress Note ---
Anesthesia Post Op Note Date & Time Dec 02, 2017 at 12:32 Vital Signs Pain Intensity: 4 Vital Signs Past 12 Hours Date Time Temp Pulse Resp B/P (MAP) Pulse Ox O2 Delivery O2 Flow Rate FiO2 12/02/17 12:25 70 16 113/51 97 Nasal Cannula 3 12/02/17 12:15 36.3 68 16 107/53 96 Nasal Cannula 3 12/02/17 12:05 71 16 117/68 98 Nasal Cannula 3 12/02/17 11:55 73 18 113/73 99 Oxymask 5 12/02/17 11:48 36.3 76 18 122/53 100 Oxymask 10 12/02/17 08:00 Room Air 12/02/17 04:00 Room Air 12/02/17 03:47 36.9 65 19 102/64 (77) 98 Room Air Notes Mental Status: alert / awake / arousable, participated in evaluation Pt Amnestic to Procedure: Yes Nausea / Vomiting: adequately controlled Pain: adequately controlled Airway Patency, RR, SpO2: stable & adequate BP & HR: stable & adequate Hydration State: stable & adequate Anesthetic Complications: no major complications apparent
--- NOTE | 2017-12-02 13:36 | OPERATIVE REPORT ---
DATE OF OPERATION: 12/02/2017 PREOPERATIVE DIAGNOSIS: Symptomatic left internal carotid stenosis. POSTOPERATIVE DIAGNOSIS: Symptomatic left internal carotid stenosis. PROCEDURE: Left carotid endarterectomy with bovine pericardial patch. SURGEON: Dr. Francisco Anderson. NURSE TECHNICIAN: Dr. Ofelia Urbina; Ragini Casillas PA-C. ESTIMATED BLOOD LOSS: 80 mL. SPECIMENS: Left carotid plaque. DRAINS: None. ANESTHESIA: General anesthesia plus local. COMPLICATIONS: None. INDICATIONS: Mrs. rCis Palmer is a 47-year-old woman with history of MS, migraine, hypertension who was admitted to the hospital following a left hemispheric TIA. She was evaluated by neurology and deemed to be symptomatic from the left carotid stenosis. The patient's symptoms included right arm weakness for approximately 1 week prior to admission. She additionally had difficulties with speech and word finding. She is a current smoker. Given her symptomatic left internal carotid stenosis, she was recommended to undergo left carotid endarterectomy. Risks, benefits and alternatives were discussed with the patient including heart attack, stroke, . Consent for this procedure was obtained and placed in the chart. DESCRIPTION OF PROCEDURE: The patient was taken to the operating room and placed in the supine position. A shoulder roll was placed under her shoulders and her head was turned to the right. General endotracheal anesthesia was induced by our anesthesia colleagues. The left neck and upper chest were prepped and draped in the usual sterile fashion. A safety timeout was performed and the patient, procedure, and sidedness were correctly identified. A skin incision was made at the anterior border of the sternocleidomastoid muscle. Bovie electrocautery was used to divide subcutaneous tissues. The platysma was identified and divided across the length of the incision. The sternocleidomastoid muscle was identified and we continued our dissection on the anterior border of the sternocleidomastoid muscle. The internal jugular was identified and retracted laterally. The common carotid artery was identified and dissected circumferentially. I extended our dissection distally and dissected the external and internal carotid arteries circumferentially. The patient was noted to have a superior thyroid artery originating off the common carotid several centimeters before the bifurcation. This was dissected circumferentially and controlled. The patient was heparinized with 7000 units of intravenous heparin. After several minutes, the internal carotid was clamped followed by the common carotid and external carotid and superior thyroid arteries. An arteriotomy was made with an 11 blade scalpel. This looks extended proximally and distally with Castle scissors. A Sundt shunt was then placed into the internal carotid and a Wade clamp placed. The shunt was backbled and then placed into the common carotid, followed by a Wade clamp on the common carotid. The common carotid clamp was then removed. The shunt was confirmed to be patent with a Doppler. We then began our endarterectomy. This was performed without difficulty. The plaque was noted to be very soft. At the distal internal endpoint was assessed and three 7-0 tacking sutures were placed at the distal end point of our endarterectomy. The lumen was irrigated with heparinized saline and small bits of plaque were removed. Once we were satisfied with our endarterectomy, a bovine pericardial patch was then brought onto the sterile field. This was cut to size. It was then anastomosed with 6-0 Prolene in a running fashion. Prior to completion of the patch, the shunt was clamped and removed. All arteries were back bled. The patch was completed after being flushed with heparinized saline and removal of any small bits of clot. The external common, and internal shunts were then removed in that order while manual pressure was held over the patch. After several seconds, manual pressure was released to allow latter-day of flow through the internal carotid. The wound was irrigated and the patch appeared to be hemostatic. Small areas of bleeding surrounding the wound were controlled with a combination of clips and Bovie electrocautery. Once hemostasis was achieved, the platysma was reapproximated with 3-0 Vicryl in a running fashion. The skin was reapproximated with 4-0 Vicryl in a running subcuticular fashion. Dermabond skin glue was applied to the skin. The patient was awakened from anesthesia and was following commands in all 4 extremities. She was transferred to the recovery area in stable condition. She tolerated the procedure well and there were no immediate complications. Dr. Francisco Anderson was present for the entire procedure. I attest to the content of the Intraoperative Record and any orders documented therein. Any exception s are noted below.
[2017-12-02] MEDS: PREGABALIN 75 MG CAP PO SCH ×2 (15:34→21:03)
[2017-12-02] MEDS: SERTRALINE HCL 100 MG TAB PO SCH (15:34)
[2017-12-02] MEDS: TOPIRAMATE 100 MG TAB PO SCH ×2 (15:34→21:03)
[2017-12-02] MEDS: PROPRANOLOL HCL 80 MG LA CAP PO SCH (15:34)
[2017-12-02] MEDS: FERROUS SULFATE 325 MG TAB PO SCH (15:34)
[2017-12-02] MEDS: CHOLECALCIFEROL 1000 INTER.UNIT TAB PO SCH (15:34)
[2017-12-02] MEDS: ASPIRIN 81 MG ECTAB PO SCH (15:34)
[2017-12-02] MEDS: CLOPIDOGREL BISULFATE 75 MG TAB PO SCH (15:35)
[2017-12-02] MEDS: D5W AND 1/2NSS 1,000 ML IV SCH ×2 (15:35→21:08)
[2017-12-02] MEDS: CEFAZOLIN IV 3,000 MG in SYRINGE 0 ML IV SCH (15:35)
[2017-12-02] MEDS: AMPHETAMINE ASP/SULF/DEXTRAMPH ER 20 MG CAP PO SCH (15:39)
--- NOTE | 2017-12-02 16:16 | Critical Care Consultation ---
Critical Care Consultation Date of Consultation: Dec 02, 2017. Attending Physician: La Douglass M.D. Reason for Consultation: Postoperative care from carotid endarterectomy History of Present Illness State Auditor: Dr. Orr This is a 47-year-old female that follows with [facility]. She presented for admission on 11/27/2017 with complaints of weakness and speech changes noted by her . 3 days prior to admission she had a left-sided headache. There is also reported that she had weakness on her right side primarily her arm through her face and leg to a lesser degree. She has a history of multiple sclerosis diagnosed 5 months ago and follows with Dr. Prado. Since diagnosis she has been taking Copaxone as prescribed. MRI was performed at [facility] on 11/26/2017 which suggested acute left hemispheric watershed type infarct. She started a corticosteroid taper as an outpatient and reported that she had improved headache and other symptoms. She does report some blurry vision although she cannot describe left right-sided. She currently denies any current headache. She is a 2 pack per day smoker for many years. She also has history of depression, hypertension, or hyperlipidemia. She denies history of thromboembolic disease. There is noted that she takes ferrous sulfate as well as folic acid as an outpatient. She also has chronic pain and is on Lyrica and request. There is also noted from her record that she is on Adderall Exar 20 mg daily. She underwent left carotid endarterectomy with Dr. Anderson. Today is POD #0. There is an approximated incision along the left carotid artery in the anterior triangle of the neck. There is a small area of disassociation with minimal seepage of blood. There is a small hematoma along the mandible. No stridor. No hypoxia. The patient states that she does have pain along the left neck. She has no other pain, fever, sweats, rigors. She denies dysphagia or odynophagia of saliva. She has no sensation of tongue swelling or shortness of breath. Past Medical/Surgical History Medical Problems: Multiple sclerosis -follows with Dr. Prado Symptomatic stenosis of left carotid artery History of migraines -follows with Dr. Prado Social History Smoking Status: Current Every Day Smoker Smokeless Tobacco Use: No Marital Status: Housing Status: lives with family Occupation Status: employed Allergies Coded Allergies: No Known Allergies (Verified , 06/29/17) Home Medications Scheduled Amphetamine-Dextroamphetamine 20MG (Adderall Xr 20MG), 20 MG PO QAM Cholecalciferol (Vitamin D3), 5,000 INTER.UNIT PO DAILY Cyanocobalamin (Cyanocobalamin), 1,000 MCG IM MONTHLY Ferrous Sulfate (Ferrous Sulfate), 325 MG PO QAM Folic Acid (Folic Acid), 1 MG PO QAM Glatiramer Acetate (Copaxone), 20 MG SC HS Lisinopril (Zestril), 40 MG PO QAM Pregabalin (Lyrica), 75 MG PO QAM Pregabalin (Lyrica), 150 MG PO HS Ropinirole (Requip), 2 MG PO HS Sertraline Hcl (Zoloft), 100 MG PO DAILY Simvastatin (Zocor), 40 MG PO QPM Topiramate (Topamax), 100 MG PO QAM Topiramate (Topiramate), 200 MG PO QPM Scheduled PRN Cyclobenzaprine Hcl (Flexeril), 10 MG PO TID PRN for Muscle Spasm Ipratropium-Albuterol (Combivent Respimat), 1 PUFF INH QID PRN for SOB/Wheezing Ondansetron Odt (Zofran Odt), 8 MG SL Q6H PRN for Nausea Oxycodone/Acetaminophen 10MG/325MG (Percocet 10MG/325MG), 1-2 TABS PO Q4H PRN for Pain Current Inpatient Medications Current Inpatient Medications Medications (Trade) Dose Ordered Sig/Vannessa Route Start Time Stop Time Status Last Admin Dose Admin Aspirin (Ecotrin Tab) 81 mg QAM PO 11/28/17 09:00 12/28/17 08:59 12/02/17 15:34 81 MG Clopidogrel Bisulfate (plAVix TAB) 75 mg QAM PO 11/28/17 09:00 12/28/17 08:59 12/02/17 15:35 75 MG Miscellaneous Information (Pharmacist Discharge Med Rec Consult) 1 ea UD PRN N/A 11/27/17 19:45 12/27/17 19:44 Acetaminophen (Tylenol Tab) 650 mg Q4H PRN PO 11/27/17 19:45 12/27/17 19:44 Al Hydrox/Mg Hydrox/Simethicone (Maalox Max Susp) 15 ml Q4H PRN PO 11/27/17 19:45 12/27/17 19:44 Magnesium Hydroxide (Milk Of Magnesia Susp) 30 ml Q12H PRN PO 11/27/17 19:45 12/27/17 19:44 Nitroglycerin (Nitrostat Tab) 0.4 mg UD PRN SL 11/27/17 19:45 12/27/17 19:44 Polyethylene (Miralax Powder Packet) 17 gm DAILY PRN PO 11/27/17 19:45 12/27/17 19:44 Amphetamine Aspartate/ Amphetam Sulf (Amphetamine Aspartate/Amphe Sulf/Dextramphet) 20 mg QAM PO 11/28/17 09:00 12/12/17 08:59 12/01/17 08:50 20 MG Cyclobenzaprine HCl (Flexeril Tab) 10 mg TID PRN PO 11/28/17 01:15 12/28/17 01:14 11/30/17 22:58 10 MG Ferrous Sulfate (Feosol Tab) 325 mg QAM PO 11/28/17 09:00 12/28/17 08:59 12/02/17 15:34 325 MG Folic Acid (Folvite Tab) 1 mg QAM PO 11/28/17 09:00 12/28/17 08:59 12/02/17 15:34 1 MG Albuterol/ Ipratropium (Combivent Respimat Inh) 1 puffs QID PRN INH 11/28/17 01:15 12/28/17 01:14 Ondansetron HCl (Zofran Odt) 8 mg Q6H PRN SL 11/28/17 01:15 12/28/17 01:14 Pregabalin (Lyrica Cap) 75 mg QAM PO 11/28/17 09:00 12/28/17 08:59 12/02/17 15:34 75 MG Pregabalin (Lyrica Cap) 150 mg HS PO 11/28/17 21:00 12/28/17 20:59 12/01/17 20:03 150 MG Ropinirole HCl (Requip Tab) 2 mg HS PO 11/28/17 21:00 12/28/17 20:59 12/01/17 20:06 2 MG Sertraline HCl (Zoloft Tab) 100 mg DAILY PO 11/28/17 09:00 12/28/17 08:59 12/02/17 15:34 100 MG Simvastatin (Zocor Tab) 40 mg QPM PO 11/28/17 21:00 12/28/17 20:59 12/01/17 20:06 40 MG Topiramate (Topamax Tab) 200 mg QPM PO 11/28/17 21:00 12/28/17 20:59 12/01/17 20:05 200 MG Topiramate (Topamax Tab) 100 mg QAM PO 11/28/17 09:00 12/28/17 08:59 12/02/17 15:34 100 MG Cholecalciferol (Vitamin D Tab) 5,000 inter.unit DAILY PO 11/28/17 09:00 12/28/17 08:59 12/02/17 15:34 5,000 INTER.UNIT Non-Formulary Medication (Non-Formulary Patient'S Own Med) 1 ea HS SC 11/29/17 21:00 12/29/17 20:59 12/01/17 20:11 1 EA Lisinopril (Zestril Tab) 40 mg QPM PO 11/30/17 21:00 12/30/17 08:59 12/01/17 20:05 40 MG Propranolol HCl (Inderal LA Cap) 80 mg QAM PO 11/30/17 09:00 12/30/17 08:59 12/02/17 15:34 80 MG Oxycodone/ Acetaminophen (Percocet 5-325mg Tab) FOR MODERATE PAIN ... Q4H PRN PO 12/02/17 11:15 12/16/17 11:14 Morphine Sulfate (MoRPHine SULFATE INJ) 4 mg Q4H PRN IV 12/02/17 11:15 12/16/17 11:14 Ondansetron HCl (Zofran Inj) 4 mg Q6H PRN IV 12/02/17 11:15 01/01/18 11:14 Cefazolin Sodium 3000 mg/Syringe 22.5 ml @ 100 mls/hr Q8H IV 12/02/17 16:00 12/03/17 00:14 12/02/17 15:35 100 MLS/HR Metoprolol Tartrate (Lopressor Iv) 5 mg Q10M PRN IV 12/02/17 11:15 01/01/18 11:14 Nitroglycerin/ Dextrose 250 ml @ 0 mls/hr Q0M PRN IV 12/02/17 11:15 01/01/18 11:14 Dextrose/Sodium Chloride 1,000 ml @ 125 mls/hr Q8H IV 12/02/17 11:45 01/01/18 11:44 12/02/17 15:35 125 MLS/HR Phenylephrine HCl 20 mg/Dextrose 502 ml @ 0 mls/hr Q0M PRN IV 12/02/17 11:15 01/01/18 11:14 Review of Systems A total of 12 systems was reviewed and is negative other than as listed above in the HPI Physical Exam Date Time Temp Pulse Resp B/P (MAP) Pulse Ox O2 Delivery O2 Flow Rate FiO2 12/02/17 14:45 19 148/66 (93) 97 12/02/17 14:31 11 131/64 (86) 97 12/02/17 14:30 14 138/59 (85) 96 12/02/17 14:16 15 114/96 (102) 98 12/02/17 14:15 21 152/61 (91) 98 12/02/17 14:02 16 146/50 (82) 98 12/02/17 14:00 15 147/58 (87) 96 12/02/17 13:47 16 165/75 (105) 97 12/02/17 13:45 73 18 (88) 98 163/63 12/02/17 13:45 18 163/63 (96) 98 12/02/17 12:25 70 16 113/51 97 Nasal Cannula 3 12/02/17 12:15 36.3 68 16 107/53 96 Nasal Cannula 3 12/02/17 12:05 71 16 117/68 98 Nasal Cannula 3 12/02/17 11:55 73 18 113/73 99 Oxymask 5 12/02/17 11:48 36.3 76 18 122/53 100 Oxymask 10 12/02/17 08:00 Room Air 12/02/17 04:00 Room Air 12/02/17 03:47 36.9 65 19 102/64 (77) 98 Room Air 12/02/17 00:01 Room Air 12/01/17 23:26 36.6 68 18 103/68 (80) 98 Room Air 12/01/17 20:00 Room Air 12/01/17 19:54 36.8 87 22 125/75 (92) 90 Room Air GENERAL : No acute distress EYES: No icterus, gaze conjugate NOSE: No evidence of epistaxis MOUTH: No lesions or candidiasis. Tongue is midline NECK: Supple. Recent surgical incision with good approximation in the left anterior triangle of the neck with a small area of oozing. There is a very small hematoma along the inferior of the left mandible. No stridor. LUNGS: CTA B/L, no wheezes, rales or rhonchi HEART: Regular, rate controlled ABDOMEN: Soft, NT, ND, BS Present EXTREMITIES: No LE edema, pedal pulses intact NEURO: A&OX3 Laboratory Results Test 12/02/17 16:59 Bedside Glucose 175 mg/dl (70-90) Date/Time Source Procedure Growth Status 12/02/17 13:35 Nasal MRSA DNA Surveillance Screen - Final Specimen Negative for MRSA by DNA Probe Complete Diagnostic Results CT NECK ANGIO WITH CONTRAST CLINICAL HISTORY: Stroke. Carotid stenosis. COMPARISON STUDY: Carotid Doppler ultrasound dated November 27, 2017 TECHNIQUE: CT angiography was performed from the aortic arch to the skull base. MIP imaging was performed. The patient was scanned in a dynamic helical fashion during intravenous administration of 120 cc of Optiray 320. A dose lowering technique was utilized adhering to the principles of ALARA. CT DOSE: Technique: CT angiogram of the carotid and vertebral arteries was obtained using intravenous contrast and 3-D reconstruction. NASCET criteria was utilized. Findings: The right carotid revealed no evidence of aneurysm and no evidence of dissection. There is no evidence of hemodynamic significant stenosis. There is a 68% stenosis of the proximal left internal carotid artery.. There is no evidence of hemodynamically significant vertebral stenosis. There is no evidence of vertebral dissection. There are postsurgical changes present within the cervical spine. IMPRESSION: 1. 68% stenosis of the proximal left internal carotid artery 2. No evidence of right internal carotid artery stenosis 3. No evidence of vertebral artery stenosis Electronically signed by: Diaz Love M.D. 11/29/2017 9:51 AM MRI OF THE BRAIN WITHOUT AND WITH IV CONTRAST CLINICAL HISTORY: Stroke. COMPARISON STUDY: MRI of the brain July 28, 2016. TECHNIQUE: Utilizing a 1.5 Dilcia magnet and dedicated coil, multiplanar, multiecho imaging of the brain was performed pre and postcontrast administration. IV administration of 12.5 mL of Gadavist contrast was uneventful. FINDINGS: There are multiple small foci of restricted diffusion within the left cerebral hemisphere. These involve the left frontal, parietal, temporal and occipital lobes. There is no mass effect. There is no evidence for hemorrhagic conversion. Ventricular system is unremarkable. Basilar cisterns are patent. There is no intracranial mass or pathologic enhancement. Scattered additional white matter T2 hyperintense foci are similar to MRI of July 28, 2016. Calvarial signal is diminished. This is unchanged and probably within normal limits. Orbits are unremarkable. IMPRESSION: 1. Numerous small foci of restricted diffusion within the left cerebral hemisphere. These represent acute to subacute infarcts without mass effect or evidence of hemorrhagic conversion. The infarcts could be due to an embolic event or represent watershed infarcts. 2. No significant change in additional white matter T2 hyperintense foci since MRI of July 28, 2016 which remain nonspecific however the appearance favors multiple sclerosis. Electronically signed by: Gian Cheney M.D. 11/28/2017 10:40 AM ULTRASOUND OF THE CAROTID ARTERIES CLINICAL HISTORY: Stroke COMPARISON STUDY: None. TECHNIQUE: Real-time, grayscale, and color Doppler sonography of the carotid arteries was performed. Imaging reviewed in the transverse and longitudinal planes. NASCET criteria was utilized for stenosis calcification. FINDINGS: There is moderate atherosclerotic plaque present at the left carotid bifurcation. The peak systolic velocity within the right internal carotid artery is 97 cm/sec. The systolic velocity ratio of right internal to common carotid artery is 1.0. The peak systolic velocity within the left internal carotid artery is 196 cm/sec. The systolic velocity ratio left internal to common carotid artery is 2.8. Antegrade flow is seen in the vertebral arteries. The external carotid arteries are patent. There is a multinodular thyroid gland including a circumscribed wider than tall 15 mm isoechoic left lobe nodule IMPRESSION: 50-69% stenosis of the left internal carotid artery Electronically signed by: Diaz Love M.D. 11/27/2017 9:22 PM Assessment & Plan Postoperative care for left carotid endarterectomy with Dr. Anderson POD #0 Neuro * Patient with recent CVA involving the left hemisphere with 50-69% stenosis of the left internal carotid artery * No neurological deficits identified today on physical exam * No slurred speech or a aphasia * Neurology consulted -appreciate Dr. Prado's input * Continue aspirin 81 mg daily * Continue clopidogrel 75 mg p.o. daily * Continue Topamax, Lyrica, Requip per neurology * Outpatient follow-up with Dr. Prado Cardiovascular * History of benign hypertension * Continue lisinopril 40 mg p.o. daily * Currently on telemetry status post left carotid endarterectomy * Follow clinically Pulmonary * 2 pack per day current everyday smoker * Denies history of pulmonary disease * Physical exam is unremarkable * Continue Combivent Renal * BUN 12, creatinine 0.75 * Adequate urine output * Follow clinically ID * MRSA screening negative by DNA probe * No fever chills sweats or rigors * No leukocytosis Endocrine * No history of diabetes mellitus * Random glucose 82 Heme * Hemoglobin 14.2, hematocrit 42.7 * Patient is on folic acid and ferrous sulfate outpatient -continue while inpatient * Patient reports no thromboembolic disease. However she is on folic acid and a homocysteine level was checked which was not elevated (<10.4) * Follow clinically Electrolytes * Sodium 137, potassium 4.0, calcium 8.5 * Follow serial labs Nutrition * Diet as tolerated GI * No indication for GI prophylaxis IV access * Peripheral IVs in place * No indication for central line DVT prophylaxis * Clopidogrel and aspirin for stroke * Chemical prophylaxis per vascular surgery as patient has small hematoma at the surgical site in the left anterior triangle of the neck * TEDs/SCDs CCT: 50 minutes independent of any procedures Thank you for including us in the care of this patient. Please refer to Dr. Orr's addendum for further recommendations. I have personally evaluated and examined this patient. I agree with assessment and plan of Carloz Bansal PA-C. Patient underwent carotid endarterectomy for symptomatic carotid stenosis.
[2017-12-02] MEDS: OXYCODONE/ACETAMINOPHEN 5-325 TAB PO PRN ×3 (17:19→21:08)
--- NOTE | 2017-12-02 19:16 | Progress Note ---
Medicine Progress Note Date & Time of Visit: Dec 02, 2017 at 19:09. Subjective Pt was seen and examined Lying in bed with no distress Pt was transfer to the ICU after her vascular procedure Pt said that she is having tenderness around the incision area in her neck Denies any sob, dysphagia, palpitation and chest pain Objective Last 8 Hrs Date Time Temp Pulse Resp B/P (MAP) Pulse Ox O2 Delivery O2 Flow Rate FiO2 12/02/17 18:00 80 18 156/55 (88) 98 Room Air 12/02/17 16:00 96 Room Air 12/02/17 16:00 36.3 75 20 140/58 (85) 99 Room Air 12/02/17 14:45 19 148/66 (93) 97 12/02/17 14:31 11 131/64 (86) 97 12/02/17 14:30 14 138/59 (85) 96 12/02/17 14:16 15 114/96 (102) 98 12/02/17 14:15 21 152/61 (91) 98 12/02/17 14:02 16 146/50 (82) 98 12/02/17 14:00 15 147/58 (87) 96 12/02/17 13:47 16 165/75 (105) 97 12/02/17 13:45 73 18 (88) 98 163/63 12/02/17 13:45 18 163/63 (96) 98 12/02/17 12:25 70 16 113/51 97 Nasal Cannula 3 12/02/17 12:15 36.3 68 16 107/53 96 Nasal Cannula 3 12/02/17 12:05 71 16 117/68 98 Nasal Cannula 3 12/02/17 11:55 73 18 113/73 99 Oxymask 5 12/02/17 11:48 36.3 76 18 122/53 100 Oxymask 10 Physical Exam: General- No acute distress Head- atraumatic Eyes- PERRL, EOMI ENT- oropharynx clear Neck- supple, no JVD Lungs- No acute distress Heart- regular rhythm; no murmur Abdomen- normal bowel sounds, soft Extremities- No calf tenderness Neuro- alert, oriented x 3; PERRL, EOMI Skin- warm & dry Laboratory Results: Last 24 Hours Test 12/02/17 16:59 Bedside Glucose 175 mg/dl Date/Time Source Procedure Growth Status 12/02/17 13:35 Nasal MRSA DNA Surveillance Screen - Final Specimen Negative for MRSA by DNA Probe Complete Assessment & Plan ACUTE /SUB ACUTE CVA LEFT CEREBRAL HEMISPHERE INFARCT presented with intermitted right sided neurological deficit for last 1 week MRI of Brain done in outside hospital shows acute /subacute CVA Repeat MRI of the brain showed numerous small foci of restricted diffusion within the left cerebral hemisphere. These represent acute to subacute infarcts without mass effect or evidence of hemorrhagic conversion. The infarcts could be due to an embolic event or represent watershed infarcts. MRA of the Brain showed unremarkable MRA of the intracranial [place] relation. Carotid US showed 50-69% stenosis of the left internal carotid artery CT neck angiogram showed 68% stenosis of the proximal left internal carotid artery Neurology on board, recommended aspirin and plavix for now, but pt should be discharged with a single antiplatelet agent with either daily low-dose aspirin or Plavix 75 mg per day would be appropriate. TERRY done showed no left atrial mass or thrombus visualized. The interatrial septum is intact with no evidence for an atrial septal defect. Hypercoagulable workup pending ECHO done :The study is somewhat technically limited due to patient characteristics, poor acoustic windows. * The left ventricular wall motion is normal. * The LV Ejection Fraction = 60-65%. * There is mild mitral annular calcification. * There is a linear echodensity noted on image 3 (parasternal long axis) in the left atrium that appears to be acoustic reverberation from the aortic root, but is now well characterized. * There appears to be mitral annular calcification , the degree of which is premature for the patient's age. * The interatrium is grossly intact on agitated saline contrast study. * Given technical limitations, and patient's presentation of possible embolic stroke, would consider transesophageal echocardiogram for further assessment. LEFT CAROTID ARTERY STENOSIS Carotid US showed 50-69% stenosis of the left internal carotid artery CT neck angiogram showed 68% stenosis of the proximal left internal carotid artery S/P Left carotid endarterectomy with Dr. Anderson POD #0 Will continue monitor in the ICU MULTIPLE SCLEROSIS : Follows with Neurology Dr Prado continue Capoxen No acute issue HTN BP stable On Lisinopril Monitor blood pressure DEPRESSION cont SSRI Stable HX OF SPINAL STENOSIS /NEUROPATHY : on Lyrica , PRN Oxycodone continued Stable HX OF RESTLESS SYNDROME ; Cont Requip CHRONIC MIGRAINE HEADACHE : on Topamax FULL CODE DVT PROPHYLAXIS sub q heparin DISPOSITION ; expected to be discharged home when medically stable Neurology follow up with Dr Prado Current Inpatient Medications: Current Inpatient Medications Medications (Trade) Dose Ordered Sig/Vannessa Route Start Time Stop Time Status Last Admin Dose Admin Aspirin (Ecotrin Tab) 81 mg QAM PO 11/28/17 09:00 12/28/17 08:59 12/02/17 15:34 81 MG Clopidogrel Bisulfate (plAVix TAB) 75 mg QAM PO 11/28/17 09:00 12/28/17 08:59 12/02/17 15:35 75 MG Miscellaneous Information (Pharmacist Discharge Med Rec Consult) 1 ea UD PRN N/A 11/27/17 19:45 12/27/17 19:44 Acetaminophen (Tylenol Tab) 650 mg Q4H PRN PO 11/27/17 19:45 12/27/17 19:44 Al Hydrox/Mg Hydrox/Simethicone (Maalox Max Susp) 15 ml Q4H PRN PO 11/27/17 19:45 12/27/17 19:44 Magnesium Hydroxide (Milk Of Magnesia Susp) 30 ml Q12H PRN PO 11/27/17 19:45 12/27/17 19:44 Nitroglycerin (Nitrostat Tab) 0.4 mg UD PRN SL 11/27/17 19:45 12/27/17 19:44 Polyethylene (Miralax Powder Packet) 17 gm DAILY PRN PO 11/27/17 19:45 12/27/17 19:44 Amphetamine Aspartate/ Amphetam Sulf (Amphetamine Aspartate/Amphe Sulf/Dextramphet) 20 mg QAM PO 11/28/17 09:00 12/12/17 08:59 12/01/17 08:50 20 MG Cyclobenzaprine HCl (Flexeril Tab) 10 mg TID PRN PO 11/28/17 01:15 12/28/17 01:14 11/30/17 22:58 10 MG Ferrous Sulfate (Feosol Tab) 325 mg QAM PO 11/28/17 09:00 12/28/17 08:59 12/02/17 15:34 325 MG Folic Acid (Folvite Tab) 1 mg QAM PO 11/28/17 09:00 12/28/17 08:59 12/02/17 15:34 1 MG Albuterol/ Ipratropium (Combivent Respimat Inh) 1 puffs QID PRN INH 11/28/17 01:15 12/28/17 01:14 Ondansetron HCl (Zofran Odt) 8 mg Q6H PRN SL 11/28/17 01:15 12/28/17 01:14 Pregabalin (Lyrica Cap) 75 mg QAM PO 11/28/17 09:00 12/28/17 08:59 12/02/17 15:34 75 MG Pregabalin (Lyrica Cap) 150 mg HS PO 11/28/17 21:00 12/28/17 20:59 12/01/17 20:03 150 MG Ropinirole HCl (Requip Tab) 2 mg HS PO 11/28/17 21:00 12/28/17 20:59 12/01/17 20:06 2 MG Sertraline HCl (Zoloft Tab) 100 mg DAILY PO 11/28/17 09:00 12/28/17 08:59 12/02/17 15:34 100 MG Simvastatin (Zocor Tab) 40 mg QPM PO 11/28/17 21:00 12/28/17 20:59 12/01/17 20:06 40 MG Topiramate (Topamax Tab) 200 mg QPM PO 11/28/17 21:00 12/28/17 20:59 12/01/17 20:05 200 MG Topiramate (Topamax Tab) 100 mg QAM PO 11/28/17 09:00 12/28/17 08:59 12/02/17 15:34 100 MG Cholecalciferol (Vitamin D Tab) 5,000 inter.unit DAILY PO 11/28/17 09:00 12/28/17 08:59 12/02/17 15:34 5,000 INTER.UNIT Non-Formulary Medication (Non-Formulary Patient'S Own Med) 1 ea HS SC 11/29/17 21:00 12/29/17 20:59 12/01/17 20:11 1 EA Lisinopril (Zestril Tab) 40 mg QPM PO 11/30/17 21:00 12/30/17 08:59 12/01/17 20:05 40 MG Propranolol HCl (Inderal LA Cap) 80 mg QAM PO 11/30/17 09:00 12/30/17 08:59 12/02/17 15:34 80 MG Oxycodone/ Acetaminophen (Percocet 5-325mg Tab) FOR MODERATE PAIN ... Q4H PRN PO 12/02/17 11:15 12/16/17 11:14 12/02/17 17:19 2 TAB Morphine Sulfate (MoRPHine SULFATE INJ) 4 mg Q4H PRN IV 12/02/17 11:15 12/16/17 11:14 Ondansetron HCl (Zofran Inj) 4 mg Q6H PRN IV 12/02/17 11:15 01/01/18 11:14 Cefazolin Sodium 3000 mg/Syringe 22.5 ml @ 100 mls/hr Q8H IV 12/02/17 16:00 12/03/17 00:14 12/02/17 15:35 100 MLS/HR Metoprolol Tartrate (Lopressor Iv) 5 mg Q10M PRN IV 12/02/17 11:15 01/01/18 11:14 Nitroglycerin/ Dextrose 250 ml @ 0 mls/hr Q0M PRN IV 12/02/17 11:15 01/01/18 11:14 Dextrose/Sodium Chloride 1,000 ml @ 125 mls/hr Q8H IV 12/02/17 11:45 01/01/18 11:44 12/02/17 15:35 125 MLS/HR Phenylephrine HCl 20 mg/Dextrose 502 ml @ 0 mls/hr Q0M PRN IV 12/02/17 11:15 01/01/18 11:14
[2017-12-02] MEDS: ROPINIROLE HCL 1 MG TAB PO SCH (21:03)
[2017-12-02] MEDS: LISINOPRIL 40 MG TAB PO SCH (21:03)
[2017-12-02] MEDS: SIMVASTATIN 40 MG TAB PO SCH (21:03)
[2017-12-02] MEDS: GLATIRAMER SC SCH (21:04)
[2017-12-03] VITALS (8 sets, daily range): BP systolic 105–135; BP diastolic 69–78; PULSE 59–67; TEMP 36.3–36.8; O2SAT 94–100
[2017-12-03] MEDS: CEFAZOLIN IV 3,000 MG in SYRINGE 0 ML IV SCH (00:12)
[2017-12-03] MEDS: D5W AND 1/2NSS 1,000 ML IV SCH (05:03)
[2017-12-03 06:25] LABS: CALCIUM 8.1 mg/dl (8.5-10.1); CREATININE 0.63 mg/dl (0.60-1.20); PHOSPHORUS 2.5 mg/dl (2.5-4.9)
[2017-12-03 06:34] LABS: HEMATOCRIT 42.4 % (37-47); HEMOGLOBIN 13.8 g/dL (12.0-16.0); MEAN CELL VOLUME 92.8 fL (80-100); MEAN CORPUSCULAR HEMOGLOBIN 30.2 pg (25-34); MEAN CORPUSCULAR HGB CONC 32.5 g/dl (32-36); MEAN PLATELET VOLUME 8.9 fL (7.4-10.4); PLATELET COUNT 222 K/uL (130-400); RED CELL DISTRIBUTION WIDTH CV 13.5 % (11.5-14.5); RED CELL DISTRIBUTION WIDTH SD 45.7 fL (36.4-46.3); WHITE BLOOD COUNT 14.43 K/uL (4.8-10.8)
--- NOTE | 2017-12-03 08:22 | Progress Note ---
Progress Note Date of Service: Dec 03, 2017. Subjective No complaints Problem List Medical Problems: (1) Ischemic cerebrovascular accident (CVA) Status: Acute (2) Right sided weakness Status: Acute Objective Vital Signs Vital Signs Past 12 Hours Date Time Temp Pulse Resp B/P (MAP) Pulse Ox O2 Delivery O2 Flow Rate FiO2 12/03/17 05:00 59 14 127/77 (94) 97 Room Air 12/03/17 04:30 36.4 60 18 127/77 (94) 98 Room Air 12/03/17 04:30 96 Room Air 12/03/17 02:00 67 16 135/69 (91) 96 Room Air 12/03/17 00:30 96 Room Air 12/03/17 00:30 63 16 121/72 (88) 96 Room Air 12/02/17 23:00 36.4 67 18 110/60 (77) 97 Room Air 101/65 (77) Exam Awake and alert VSS afebrile Neck incision dry and clean. Mild ecchymosis. No neuro deficits. Laboratory and Microbiology Results Past 24 Hours Test 12/02/17 16:59 12/03/17 05:36 Range/Units Bedside Glucose 175 70-90 mg/dl White Blood Count 14.43 4.8-10.8 K/uL Red Blood Count 4.57 4.2-5.4 M/uL Hemoglobin 13.8 12.0-16.0 g/dL Hematocrit 42.4 37-47 % Mean Corpuscular Volume 92.8 80-100 fL Mean Corpuscular Hemoglobin 30.2 25-34 pg Mean Corpuscular Hemoglobin Concent 32.5 32-36 g/dl RDW Standard Deviation 45.7 36.4-46.3 fL RDW Coefficient of Variation 13.5 11.5-14.5 % Platelet Count 222 130-400 K/uL Mean Platelet Volume 8.9 7.4-10.4 fL Sodium Level 142 136-145 mmol/L Potassium Level 4.0 3.5-5.1 mmol/L Chloride Level 114 98-107 mmol/L Carbon Dioxide Level 21 21-32 mmol/L Anion Gap 7.0 3-11 mmol/L Blood Urea Nitrogen 14 7-18 mg/dl Creatinine 0.63 0.60-1.20 mg/dl Est Creatinine Clear Calc Drug Dose 146.1 ml/min Estimated GFR () 124.7 Estimated GFR (Non- 107.6 BUN/Creatinine Ratio 21.6 10-20 Random Glucose 121 70-99 mg/dl Calcium Level 8.1 8.5-10.1 mg/dl Phosphorus Level 2.5 2.5-4.9 mg/dl Magnesium Level 2.1 1.8-2.4 mg/dl Chemistry Specimen Hemolysis Microbiology Results 12/02/17 MRSA DNA Surveillance Screen - Final, Complete Specimen Negative for MRSA by DNA Probe Imp: Left ICAS, symptomatic Plan: Patient doing well post CEA. Can d/c from vascular standpoint. Would send home on ASA daily.
[2017-12-03] MEDS ORDERED: ASPI-320 PO (08:31)
[2017-12-03] MEDS ORDERED: OXYC-57 PO (08:31)
[2017-12-03] MEDS ORDERED: ASPIRIN/ALUM/MAGNES/CAL CARB 325 MG TAB PO SCH (09:00)
[2017-12-03] MEDS: ASPIRIN 81 MG ECTAB PO SCH ×2 (09:57→10:57)
--- NOTE | 2017-12-03 10:52 | Anesthesiology Progress Note ---
Anesthesia Post Op Note Date & Time Dec 03, 2017 at 10:52 Vital Signs Vital Signs Past 12 Hours Date Time Temp Pulse Resp B/P (MAP) Pulse Ox O2 Delivery O2 Flow Rate FiO2 12/03/17 08:00 94 Room Air 12/03/17 08:00 36.8 66 18 127/77 (94) 97 Room Air 12/03/17 05:00 59 14 127/77 (94) 97 Room Air 12/03/17 04:30 36.4 60 18 127/77 (94) 98 Room Air 12/03/17 04:30 96 Room Air 12/03/17 02:00 67 16 135/69 (91) 96 Room Air 12/03/17 00:30 96 Room Air 12/03/17 00:30 63 16 121/72 (88) 96 Room Air 12/02/17 23:00 36.4 67 18 110/60 (77) 97 Room Air 101/65 (77) Notes Mental Status: alert / awake / arousable, participated in evaluation Pt Amnestic to Procedure: Yes Nausea / Vomiting: adequately controlled Pain: adequately controlled Airway Patency, RR, SpO2: stable & adequate BP & HR: stable & adequate Hydration State: stable & adequate Anesthetic Complications: no major complications apparent
[2017-12-03] MEDS: AMPHETAMINE ASP/SULF/DEXTRAMPH ER 20 MG CAP PO SCH (10:57)
[2017-12-03] MEDS: PROPRANOLOL HCL 80 MG LA CAP PO SCH (11:00)
[2017-12-03] MEDS: PREGABALIN 75 MG CAP PO SCH (11:00)
[2017-12-03] MEDS: TOPIRAMATE 100 MG TAB PO SCH (11:01)
[2017-12-03] MEDS: SERTRALINE HCL 100 MG TAB PO SCH (11:01)
[2017-12-03] MEDS: CHOLECALCIFEROL 1000 INTER.UNIT TAB PO SCH (12:20)
[2017-12-03] MEDS: FERROUS SULFATE 325 MG TAB PO SCH (12:20)
[2017-12-03] MEDS: OXYCODONE/ACETAMINOPHEN 5-325 TAB PO PRN (12:22)
--- NOTE | 2017-12-03 15:24 | Progress Note ---
Medicine Progress Note Date & Time of Visit: Dec 03, 2017 at 15:19. Subjective Pt was seen and examined Lying in bed with no distress Pt said that she feels fine Pt said pain from surgical incision improves Denies any chest pain, palpitation, dizziness, SOB Objective Last 8 Hrs Date Time Temp Pulse Resp B/P (MAP) Pulse Ox O2 Delivery O2 Flow Rate FiO2 12/03/17 15:17 36.5 67 18 105/71 (82) 99 12/03/17 12:07 36.3 67 18 118/78 (91) 100 12/03/17 08:00 94 Room Air 12/03/17 08:00 36.8 66 18 127/77 (94) 97 Room Air Physical Exam: General- No acute distress Head- atraumatic Eyes- PERRL, EOMI ENT- oropharynx clear Neck- supple, no JVD Lungs- No acute distress Heart- regular rhythm; no murmur Abdomen- normal bowel sounds, soft Extremities- No calf tenderness Neuro- alert, oriented x 3; PERRL, EOMI Skin- warm & dry Laboratory Results: Last 24 Hours Test 12/02/17 16:59 12/03/17 05:36 Bedside Glucose 175 mg/dl White Blood Count 14.43 K/uL Red Blood Count 4.57 M/uL Hemoglobin 13.8 g/dL Hematocrit 42.4 % Mean Corpuscular Volume 92.8 fL Mean Corpuscular Hemoglobin 30.2 pg Mean Corpuscular Hemoglobin Concent 32.5 g/dl RDW Standard Deviation 45.7 fL RDW Coefficient of Variation 13.5 % Platelet Count 222 K/uL Mean Platelet Volume 8.9 fL Sodium Level 142 mmol/L Potassium Level 4.0 mmol/L Chloride Level 114 mmol/L Carbon Dioxide Level 21 mmol/L Anion Gap 7.0 mmol/L Blood Urea Nitrogen 14 mg/dl Creatinine 0.63 mg/dl Est Creatinine Clear Calc Drug Dose 146.1 ml/min Estimated GFR () 124.7 Estimated GFR (Non- 107.6 BUN/Creatinine Ratio 21.6 Random Glucose 121 mg/dl Calcium Level 8.1 mg/dl Phosphorus Level 2.5 mg/dl Magnesium Level 2.1 mg/dl Chemistry Specimen Hemolysis Assessment & Plan ACUTE /SUB ACUTE LEFT CEREBRAL HEMISPHERE INFARCT presented with intermitted right sided neurological deficit for last 1 week MRI of Brain done in outside hospital shows acute /subacute CVA Repeat MRI of the brain showed numerous small foci of restricted diffusion within the left cerebral hemisphere. These represent acute to subacute infarcts without mass effect or evidence of hemorrhagic conversion. The infarcts could be due to an embolic event or represent watershed infarcts. MRA of the Brain showed unremarkable MRA of the intracranial [place] relation. Carotid US showed 50-69% stenosis of the left internal carotid artery CT neck angiogram showed 68% stenosis of the proximal left internal carotid artery Neurology on board, recommended aspirin and plavix for now, but pt should be discharged with a single antiplatelet agent with either daily low-dose aspirin or Plavix 75 mg per day would be appropriate. TERRY done showed no left atrial mass or thrombus visualized. The interatrial septum is intact with no evidence for an atrial septal defect. Hypercoagulable workup pending ECHO done :The study is somewhat technically limited due to patient characteristics, poor acoustic windows. * The left ventricular wall motion is normal. * The LV Ejection Fraction = 60-65%. * There is mild mitral annular calcification. * There is a linear echodensity noted on image 3 (parasternal long axis) in the left atrium that appears to be acoustic reverberation from the aortic root, but is now well characterized. * There appears to be mitral annular calcification , the degree of which is premature for the patient's age. * The interatrium is grossly intact on agitated saline contrast study. * Given technical limitations, and patient's presentation of possible embolic stroke, would consider transesophageal echocardiogram for further assessment. LEFT CAROTID ARTERY STENOSIS Carotid US showed 50-69% stenosis of the left internal carotid artery CT neck angiogram showed 68% stenosis of the proximal left internal carotid artery S/P Left carotid endarterectomy with Dr. Anderson POD #1 OK from vascular standpoint to discharge Will discharge on aspirin daily as per vascular Follow up with Vascular between 1 to 2 weeks MULTIPLE SCLEROSIS : Follows with Neurology Dr Prado continue Capoxen No acute issue HTN BP stable On Lisinopril Monitor blood pressure DEPRESSION cont SSRI Stable HX OF SPINAL STENOSIS /NEUROPATHY : on Lyrica , PRN Oxycodone continued Stable HX OF RESTLESS SYNDROME ; Cont Requip CHRONIC MIGRAINE HEADACHE : on Topamax FULL CODE DVT PROPHYLAXIS sub q heparin DISPOSITION ; expected to be discharged home when medically stable Neurology follow up with Dr Prado Current Inpatient Medications: Current Inpatient Medications Medications (Trade) Dose Ordered Sig/Vannessa Route Start Time Stop Time Status Last Admin Dose Admin Miscellaneous Information (Pharmacist Discharge Med Rec Consult) 1 ea UD PRN N/A 11/27/17 19:45 12/27/17 19:44 Acetaminophen (Tylenol Tab) 650 mg Q4H PRN PO 11/27/17 19:45 12/27/17 19:44 Al Hydrox/Mg Hydrox/Simethicone (Maalox Max Susp) 15 ml Q4H PRN PO 11/27/17 19:45 12/27/17 19:44 Magnesium Hydroxide (Milk Of Magnesia Susp) 30 ml Q12H PRN PO 11/27/17 19:45 12/27/17 19:44 Nitroglycerin (Nitrostat Tab) 0.4 mg UD PRN SL 11/27/17 19:45 12/27/17 19:44 Polyethylene (Miralax Powder Packet) 17 gm DAILY PRN PO 11/27/17 19:45 12/27/17 19:44 Amphetamine Aspartate/ Amphetam Sulf (Amphetamine Aspartate/Amphe Sulf/Dextramphet) 20 mg QAM PO 11/28/17 09:00 12/12/17 08:59 12/03/17 10:57 20 MG Cyclobenzaprine HCl (Flexeril Tab) 10 mg TID PRN PO 11/28/17 01:15 12/28/17 01:14 11/30/17 22:58 10 MG Ferrous Sulfate (Feosol Tab) 325 mg QAM PO 11/28/17 09:00 12/28/17 08:59 12/03/17 12:20 325 MG Folic Acid (Folvite Tab) 1 mg QAM PO 11/28/17 09:00 12/28/17 08:59 12/03/17 11:00 1 MG Albuterol/ Ipratropium (Combivent Respimat Inh) 1 puffs QID PRN INH 11/28/17 01:15 12/28/17 01:14 Ondansetron HCl (Zofran Odt) 8 mg Q6H PRN SL 11/28/17 01:15 12/28/17 01:14 Pregabalin (Lyrica Cap) 75 mg QAM PO 11/28/17 09:00 12/28/17 08:59 12/03/17 11:00 75 MG Pregabalin (Lyrica Cap) 150 mg HS PO 11/28/17 21:00 12/28/17 20:59 12/02/17 21:03 150 MG Ropinirole HCl (Requip Tab) 2 mg HS PO 11/28/17 21:00 12/28/17 20:59 12/02/17 21:03 2 MG Sertraline HCl (Zoloft Tab) 100 mg DAILY PO 11/28/17 09:00 12/28/17 08:59 12/03/17 11:01 100 MG Simvastatin (Zocor Tab) 40 mg QPM PO 11/28/17 21:00 12/28/17 20:59 12/02/17 21:03 40 MG Topiramate (Topamax Tab) 200 mg QPM PO 11/28/17 21:00 12/28/17 20:59 12/02/17 21:03 200 MG Topiramate (Topamax Tab) 100 mg QAM PO 11/28/17 09:00 12/28/17 08:59 12/03/17 11:01 100 MG Cholecalciferol (Vitamin D Tab) 5,000 inter.unit DAILY PO 11/28/17 09:00 12/28/17 08:59 12/03/17 12:20 5,000 INTER.UNIT Non-Formulary Medication (Non-Formulary Patient'S Own Med) 1 ea HS SC 11/29/17 21:00 12/29/17 20:59 12/02/17 21:04 1 EA Lisinopril (Zestril Tab) 40 mg QPM PO 11/30/17 21:00 12/30/17 08:59 12/02/17 21:03 40 MG Propranolol HCl (Inderal LA Cap) 80 mg QAM PO 11/30/17 09:00 12/30/17 08:59 12/03/17 11:00 80 MG Oxycodone/ Acetaminophen (Percocet 5-325mg Tab) FOR MODERATE PAIN ... Q4H PRN PO 12/02/17 11:15 12/16/17 11:14 12/03/17 12:22 1 TAB Ondansetron HCl (Zofran Inj) 4 mg Q6H PRN IV 12/02/17 11:15 01/01/18 11:14 Metoprolol Tartrate (Lopressor Iv) 5 mg Q10M PRN IV 12/02/17 11:15 01/01/18 11:14 Aspirin (Ecotrin Tab) 81 mg QAM PO 12/03/17 09:00 01/02/18 08:59 12/03/17 10:57 81 MG
[2017-12-03] MEDS ORDERED: PROP80CA29 PO (15:34)
--- NOTE | 2017-12-03 15:46 | Discharge Instructions ---
Discharge Instructions Date of Service Dec 03, 2017. Admission Reason for Admission: Cva, Multiple Sclerosis, Right Sided Weakness Discharge Discharge Diagnosis / Problem: ACUTE /SUB ACUTE LEFT CEREBRAL HEMISPHERE INFARCT/LEFT CAROTID ARTERY STENO Discharge Goals Goal(s): Decrease discomfort, Improve function, Improve disease control Activity Recommendations Activity Limitations: resume your previous activity (As tolerated) . Instructions / Follow-Up Instructions / Follow-Up Please call to schedule follow up appointment with your primary care provider within 1 week Please follow up with your neurology Please call vascular surgery Dr. Anderson to schedule follow up appointment between 1 to 2 week Continue aspirin Keep incision area clean Please call your vascular surgery if your have any questions or concerns related to your neck surgery Please do not drive or operate any machine after taking the oxycodone Dont drive until your doctor says its OK. This will most likely take 1 to 2 weeks. Don't scrub your incision. Avoid strenuous activity for 7 to 10 days after your surgery. Dont lift anything heavier than 10 pounds for 2 to 3 weeks after your surgery. Ask your doctor when you can expect to return to work.. Gradually increase your activity. Check your incision every day for signs of infection (redness, swelling, drainage, or warmth). Current Hospital Diet Patient's current hospital diet: AHA Diet (Heart Healthy) Discharge Diet Recommended Diet: AHA Diet (Heart Healthy) Procedures Procedures Performed: Left Carotid Endartectomy with Patch Pending Studies Studies pending at discharge: yes List of pending studies: Hypercoagulable work up. Laboratory Results Hemoglobin A1c Test 11/27/17 17:16 Range/Units Estimated Average Glucose 123 mg/dl Hemoglobin A1c 5.9 H 4.5-5.6 % Lipid Panel Test 11/28/17 11:27 Range/Units Triglycerides Level 222 H 0-150 mg/dl Cholesterol Level 196 0-200 mg/dl HDL Cholesterol 49 mg/dl Cholesterol/HDL Ratio 4.0 LDL Cholesterol, Calculated 103 mg/dl Medical Emergencies . Who to Call and When: Medical Emergencies: If at any time you feel your situation is an emergency, please call 911 immediately. . Non-Emergent Contact Non-Emergency issues call your: Primary Care Provider, Surgeon Call Non-Emergent contact if: you have a fever, temperature is above 101, your pain is not controlled, your pain is worsening, wound has increased drainage, wound has increased redness, wound has increased pain, you have any medication questions . . "Provider Documentation" section prepared by La Douglass. .
--- NOTE | 2017-12-06 18:30 | Discharge Summary ---
Discharge Summary Date of Service Dec 06, 2017. Discharge Summary Admission Date: Nov 27, 2017 at 19:31 Discharge Date: Dec 03, 2017 Discharge Disposition: Home Principal Diagnosis: ACUTE /SUB ACUTE LEFT CEREBRAL HEMISPHERE INFARCT Secondary Diagnoses/Problems: MULTIPLE SCLEROSIS LEFT CAROTID ARTERY STENOSIS HTN DEPRESSION HX OF SPINAL STENOSIS /NEUROPATHY HX OF RESTLESS SYNDROME CHRONIC MIGRAINE HEADACHE Procedures: CT NECK ANGIO WITH CONTRAST CLINICAL HISTORY: Stroke. Carotid stenosis. COMPARISON STUDY: Carotid Doppler ultrasound dated November 27, 2017 TECHNIQUE: CT angiography was performed from the aortic arch to the skull base. MIP imaging was performed. The patient was scanned in a dynamic helical fashion during intravenous administration of 120 cc of Optiray 320. A dose lowering technique was utilized adhering to the principles of ALARA. CT DOSE: Technique: CT angiogram of the carotid and vertebral arteries was obtained using intravenous contrast and 3-D reconstruction. NASCET criteria was utilized. Findings: The right carotid revealed no evidence of aneurysm and no evidence of dissection. There is no evidence of hemodynamic significant stenosis. There is a 68% stenosis of the proximal left internal carotid artery.. There is no evidence of hemodynamically significant vertebral stenosis. There is no evidence of vertebral dissection. There are postsurgical changes present within the cervical spine. IMPRESSION: 1. 68% stenosis of the proximal left internal carotid artery 2. No evidence of right internal carotid artery stenosis 3. No evidence of vertebral artery stenosis Electronically signed by: Diaz Love M.D. 11/29/2017 9:51 AM Dictated Date/Time: 11/29/2017 9:[address] ANGIOGRAPHY HEAD COMBO CT DOSE: 1392.20 mGy.cm CLINICAL HISTORY: Stroke. TECHNIQUE: Unenhanced images were obtained the brain. Patient was then scanned in a dynamic helical fashion during intravenous administration of 120 cc of Optiray 320. MIP imaging was performed A dose lowering technique was utilized adhering to the principles of ALARA. COMPARISON STUDY: MRI the brain dated 11/28/2017 FINDINGS: Unenhanced images reveal a subtle left frontal hypodensity, likely secondary to an infarct. There is no evidence of acute hemorrhage. There is no midline shift. There is no hydrocephalus. CTA angiographic images reveal no major intracranial branch occlusion. There are no significant stenotic lesions. There are no lesion suspicious for aneurysm. There is no evidence of dural venous sinus thrombosis. IMPRESSION: 1. Suspected left frontal infarct 2. No evidence of aneurysm 3. No evidence of major intracranial stenosis or branch occlusion Electronically signed by: Diaz Love M.D. 11/29/2017 9:45 AM Dictated Date/Time: 11/29/2017 9:41 AM MRI OF THE BRAIN WITHOUT AND WITH IV CONTRAST CLINICAL HISTORY: Stroke. COMPARISON STUDY: MRI of the brain July 28, 2016. TECHNIQUE: Utilizing a 1.5 Dilcia magnet and dedicated coil, multiplanar, multiecho imaging of the brain was performed pre and postcontrast administration. IV administration of 12.5 mL of Gadavist contrast was uneventful. FINDINGS: There are multiple small foci of restricted diffusion within the left cerebral hemisphere. These involve the left frontal, parietal, temporal and occipital lobes. There is no mass effect. There is no evidence for hemorrhagic conversion. Ventricular system is unremarkable. Basilar cisterns are patent. There is no intracranial mass or pathologic enhancement. Scattered additional white matter T2 hyperintense foci are similar to MRI of July 28, 2016. Calvarial signal is diminished. This is unchanged and probably within normal limits. Orbits are unremarkable. IMPRESSION: 1. Numerous small foci of restricted diffusion within the left cerebral hemisphere. These represent acute to subacute infarcts without mass effect or evidence of hemorrhagic conversion. The infarcts could be due to an embolic event or represent watershed infarcts. 2. No significant change in additional white matter T2 hyperintense foci since MRI of July 28, 2016 which remain nonspecific however the appearance favors multiple sclerosis. Electronically signed by: Gian Cheney M.D. 11/28/2017 10:40 AM Dictated Date/Time: 11/28/2017 10:32 AM MRA OF THE INTRACRANIAL CIRCULATION WITHOUT CONTRAST CLINICAL HISTORY: Stroke - Attention to [place]. COMPARISON STUDY: None. TECHNIQUE: Utilizing a 1.5 Dilcia magnet and 3-D [id number] technique, unenhanced MRA of the intracranial circulation was obtained. FINDINGS: Bilateral M1, M2, A1 and A2 segments are patent. There is no intracranial aneurysm or evidence for dissection within the intracranial vessels. No abrupt vessel cut off is identified. There is a large left posterior communicating artery. There is an anterior communicating artery. The posterior circulation is intact. IMPRESSION: Unremarkable MRA of the intracranial [place] relation. Electronically signed by: Gian Cheney M.D. 11/28/2017 10:47 AM Dictated Date/Time: 11/28/2017 10:44 AM [~ rep ct add3]] ULTRASOUND OF THE CAROTID ARTERIES CLINICAL HISTORY: Stroke COMPARISON STUDY: None. TECHNIQUE: Real-time, grayscale, and color Doppler sonography of the carotid arteries was performed. Imaging reviewed in the transverse and longitudinal planes. NASCET criteria was utilized for stenosis calcification. FINDINGS: There is moderate atherosclerotic plaque present at the left carotid bifurcation. The peak systolic velocity within the right internal carotid artery is 97 cm/sec. The systolic velocity ratio of right internal to common carotid artery is 1.0. The peak systolic velocity within the left internal carotid artery is 196 cm/sec. The systolic velocity ratio left internal to common carotid artery is 2.8. Antegrade flow is seen in the vertebral arteries. The external carotid arteries are patent. There is a multinodular thyroid gland including a circumscribed wider than tall 15 mm isoechoic left lobe nodule IMPRESSION: 50-69% stenosis of the left internal carotid artery Electronically signed by: Diaz Love M.D. 11/27/2017 9:22 PM Dictated Date/Time: 11/27/2017 9:19 PM Consultations: VASCULAR SURGERY NEUROLOGY Medication Reconciliation New Medications: Oxycodone/Acetaminophen 5MG/325MG (Percocet 5MG/325MG) Tab 1 TABLET PO Q4H PRN for Pain, #30 TAB Aspirin (Aspirin EC Low Dose) 81 Mg Ectab 81 MG PO QAM, #30 Continued Medications: Amphetamine-Dextroamphetamine 20MG (Adderall Xr 20MG) 1 Cap Cap 20 MG PO QAM, CAP Cholecalciferol (Vitamin D3) 5,000 Unit Cap 5000 INTER.UNIT PO DAILY Cyanocobalamin (Cyanocobalamin) 1,000 Mcg/Ml Inj 1000 MCG IM MONTHLY Cyclobenzaprine Hcl (Flexeril) 10 Mg Tab 10 MG PO TID PRN for Muscle Spasm, TAB Ferrous Sulfate (Ferrous Sulfate) 325 Mg Tab 325 MG PO QAM Folic Acid (Folic Acid) 1 Mg Tab 1 MG PO QAM Glatiramer Acetate (Copaxone) 20 Mg/1 Ml Inj 20 MG SC HS Ipratropium-Albuterol (Combivent Respimat) 1 Aer Aer 1 PUFF INH QID PRN for SOB/Wheezing, INH Lisinopril (Zestril) 40 Mg Tab 40 MG PO QAM, TAB Ondansetron Odt (Zofran Odt) 8 Mg Soltab 8 MG SL Q6H PRN for Nausea, TAB Pregabalin (Lyrica) 75 Mg Cap 75 MG PO QAM, CAP Pregabalin (Lyrica) 75 Mg Cap 150 MG PO HS Propranolol Hcl (Inderal La) 80 Mg Cap 1 CAP PO DAILY, CAP Ropinirole (Requip) 1 Mg Tab 2 MG PO HS, TAB Sertraline Hcl (Zoloft) 100 Mg Tab 100 MG PO DAILY, TAB Simvastatin (Zocor) 40 Mg Tab 40 MG PO QPM, TAB Topiramate (Topamax) 100 Mg Tab 100 MG PO QAM Topiramate (Topiramate) 100 Mg Tab 200 MG PO QPM Discontinued Medications: Oxycodone/Acetaminophen 10MG/325MG (Percocet 10MG/325MG) Tab 1-2 TABS PO Q4H PRN for Pain, TAB Admission Information HPI (per Admitting provider): 47 yo F with medical hx of Multiple sclerosis , depression , migraine headache , HTN , hyperlipidemia -follows with Neurology Dr Prado Pt has been having intermittent weakness , numbness of rt arm , blurred vision , imbalance for past 1 week her rt arm sometimes feels wt , she could not control , can not use to hold any object , few hrs later symptoms resolved pt was ordered out pt MRI at [facility] -shows acute /sub acute CVA on rt Frontal , frontoparietal , occipital area report of MRI updated to neurology pt was instructed to come to [facility] during my interview , pt does not exhibit any focal deficit, speech fluent , no motor /sensory deficit , had left frontal headache -chronic migraine no complain of fever or chills no SOB /chest discomfort /no palpitation , no fall or syncope Physical Exam (per Admitting): General Appearance: no apparent distress Head: normocephalic, atraumatic Eyes: PERRL, EOMI, sclerae normal Neck: supple, no JVD, no carotid bruits, trachea midline Respiratory/Chest: lungs clear, normal breath sounds, no respiratory distress Cardiovascular: regular rate, rhythm, no edema, no JVD, no murmur, normal peripheral pulses Abdomen/GI: normal bowel sounds, non tender, soft Extremities/Musculoskelatal: normal capillary refill, + pedal edema (+ 1-2 chronic ) Neurologic/Psych: no motor/sensory deficits, alert, normal mood/affect, oriented x 3 Skin: normal color, warm/dry, no rash Lymphatic: no adenopathy Hospital Course ACUTE /SUB ACUTE LEFT CEREBRAL HEMISPHERE INFARCT presented with intermitted right sided neurological deficit for last 1 week MRI of Brain done in outside hospital shows acute /subacute CVA Repeat MRI of the brain showed numerous small foci of restricted diffusion within the left cerebral hemisphere. These represent acute to subacute infarcts without mass effect or evidence of hemorrhagic conversion. The infarcts could be due to an embolic event or represent watershed infarcts. MRA of the Brain showed unremarkable MRA of the intracranial [place] relation. Carotid US showed 50-69% stenosis of the left internal carotid artery CT neck angiogram showed 68% stenosis of the proximal left internal carotid artery Neurology on board, recommended aspirin and plavix for now, but pt should be discharged with a single antiplatelet agent with either daily low-dose aspirin or Plavix 75 mg per day would be appropriate. TERRY done showed no left atrial mass or thrombus visualized. The interatrial septum is intact with no evidence for an atrial septal defect. Hypercoagulable workup pending ECHO done :The study is somewhat technically limited due to patient characteristics, poor acoustic windows. * The left ventricular wall motion is normal. * The LV Ejection Fraction = 60-65%. * There is mild mitral annular calcification. * There is a linear echodensity noted on image 3 (parasternal long axis) in the left atrium that appears to be acoustic reverberation from the aortic root, but is now well characterized. * There appears to be mitral annular calcification , the degree of which is premature for the patient's age. * The interatrium is grossly intact on agitated saline contrast study. * Given technical limitations, and patient's presentation of possible embolic stroke, would consider transesophageal echocardiogram for further assessment. LEFT CAROTID ARTERY STENOSIS Carotid US showed 50-69% stenosis of the left internal carotid artery CT neck angiogram showed 68% stenosis of the proximal left internal carotid artery S/P Left carotid endarterectomy with Dr. Anderson POD #1 OK from vascular standpoint to discharge Will discharge on aspirin daily as per vascular Follow up with Vascular between 1 to 2 weeks MULTIPLE SCLEROSIS : Follows with Neurology Dr Prado continue [place] No acute issue HTN BP stable On Lisinopril Monitor blood pressure DEPRESSION cont SSRI Stable HX OF SPINAL STENOSIS /NEUROPATHY : on Lyrica , PRN Oxycodone continued Stable HX OF RESTLESS SYNDROME ; Cont Requip CHRONIC MIGRAINE HEADACHE : on Topamax FULL CODE DVT PROPHYLAXIS sub q heparin DISPOSITION ; expected to be discharged home when medically stable Neurology follow up with Dr Prado Total time spent on discharge = 35 MINUTES This includes examination of the patient, discharge planning, medication reconciliation, and communication with other providers. Discharge Instructions Discharge Instructions Date of Service Dec 03, 2017. Admission Reason for Admission: Cva, Multiple Sclerosis, Right Sided Weakness Discharge Discharge Diagnosis / Problem: ACUTE /SUB ACUTE LEFT CEREBRAL HEMISPHERE INFARCT/LEFT CAROTID ARTERY STENO Discharge Goals Goal(s): Decrease discomfort, Improve function, Improve disease control Activity Recommendations Activity Limitations: resume your previous activity (As tolerated) . Instructions / Follow-Up Instructions / Follow-Up Please call to schedule follow up appointment with your primary care provider within 1 week Please follow up with your neurology Please call vascular surgery Dr. Anderson to schedule follow up appointment between 1 to 2 week Continue aspirin Keep incision area clean Please call your vascular surgery if your have any questions or concerns related to your neck surgery Please do not drive or operate any machine after taking the oxycodone Dont drive until your doctor says its OK. This will most likely take 1 to 2 weeks. Don't scrub your incision. Avoid strenuous activity for 7 to 10 days after your surgery. Dont lift anything heavier than 10 pounds for 2 to 3 weeks after your surgery. Ask your doctor when you can expect to return to work.. Gradually increase your activity. Check your incision every day for signs of infection (redness, swelling, drainage, or warmth). Current Hospital Diet Patient's current hospital diet: AHA Diet (Heart Healthy) Procedures Procedures Performed: Left Carotid Endartectomy with Patch Pending Studies Studies pending at discharge: yes List of pending studies: Hypercoagulable work up. Laboratory Results Hemoglobin A1c Test 11/27/17 17:16 Range/Units Estimated Average Glucose 123 mg/dl Hemoglobin A1c 5.9 H 4.5-5.6 % Lipid Panel Test 11/28/17 11:27 Range/Units Triglycerides Level 222 H 0-150 mg/dl Cholesterol Level 196 0-200 mg/dl HDL Cholesterol 49 mg/dl Cholesterol/HDL Ratio 4.0 LDL Cholesterol, Calculated 103 mg/dl Medical Emergencies . Who to Call and When: Medical Emergencies: If at any time you feel your situation is an emergency, please call 911 immediately. . Non-Emergent Contact Non-Emergency issues call your: Primary Care Provider, Surgeon Call Non-Emergent contact if: you have a fever, temperature is above 101, your pain is not controlled, your pain is worsening, wound has increased drainage, wound has increased redness, wound has increased pain, you have any medication questions . . "Provider Documentation" section prepared by La Douglass. .
== END 2017-12-03 16:15 | disposition home or self-care (01) | DRG 39 ==
LOC: EDBD 16:32 → C.EDB 16:33 → C.2T 19:31 → ENRESERV 19:54 → C.2T 11-30 19:44 → ENRESERV 12-02 11:57 → C.MSICU 12-02 12:42 → ENRESERV 12-03 09:25 → C.MS4W 12-03 12:04
PROVIDERS: ADMIT Hospitalist; ATTEND Internal Medicine
PROC: 03CL0ZZ Extirpation of Matter from Left Internal Carotid Artery, Open Approach (ICD-10-PCS; principal; 2017-12-02 08:00)
DX: I63.8 Other cerebral infarction (principal); G35 Multiple sclerosis; F17.200 Nicotine dependence, unspecified, uncomplicated; F32.9 Major depressive disorder, single episode, unspecified; I10 Essential (primary) hypertension; E78.5 Hyperlipidemia, unspecified; G43.909 Migraine, unspecified, not intractable, without status migrainosus; G25.81 Restless legs syndrome; I65.22 Occlusion and stenosis of left carotid artery; Z86.73 Personal history of transient ischemic attack (TIA), and cerebral infarction without residual deficits; Z82.49 Family history of ischemic heart disease and other diseases of the circulatory system

== ENCOUNTER 2018-05-02 16:05 | Emergency (ER) | payer OTHER ==
[~2018-05-02] VITALS: Ht 165.1 cm; Wt 126.4 kg
[~2018-05-02 16:05] MED LIST changes: -AMPH15CA7 PO; +AMPH20CA3 PO; +ASPI-320 PO; -ATV/1 PO; +CHOLCAP5 PO; +CPXI SC; +CYCL10TA6 PO; +CYNI1000 IM; -FERR1TAB13 PO; +FERR325T5 PO; -FLUT0.15 NAE; -HYDR25TA5 PO; -OXYC-106 PO; +OXYC-57 PO; +PROP80CA29 PO; -ROPI2TAB6 PO; +SERT1TAB68 PO; -SERT50TA PO; -SIMV10TA5 PO; +SIMV40TA4 PO; -TOPI200T14 PO; +TPM100 PO; -ZNF4 PO; +[UNRECOGNIZED DRUG - CODE] PO; -[UNRECOGNIZED DRUG - CODE] PO; -vitamin b12 inj IM
[2018-05-02 16:08] VITALS: Ht 165.1 cm; Wt 126.4 kg
--- NOTE | 2018-05-02 16:24 | EMERGENCY ROOM VISIT NOTE ---
History Report prepared by Pennie: Orville Elam Under the Supervision of: Dr. Greg Etienne M.D. First contact with patient: 16:12 Chief Complaint: DIZZY Stated Complaint: LIGHT HEADED,BP ELEVATED, PULSE ELEVATED History of Present Illness The patient is a 48 year old female who presents to the Emergency Room with complaints of a constant shadow following her hand beginning this morning. The patient states she was very lightheaded around 8PM last night. She reports walked up her steps and fell at the top. The patient denies a headache or hitting her head. She notes she has a history of MS and falling is not abnormal. The patient states she woke up this morning and saw a shadow behind her hand as she moved her hand. She reports closing one of her eyes decreases the shadow, but it is still present with each eye. The patient notes she is also dizzy when she stands. She states she has been keeping up with her fluids. The patient reports worsening tingling in her hands bilaterally. She notes she has a history of a stroke, and she had carotid artery surgery. The patient states she had complete right-sided numbness when she had her stroke. She reports she was placed on aspirin. The patient notes Dr. Prado is her neurologist. She denies trouble swallowing, trouble talking, chest pain, shortness of breath, abdominal pain, a history of eye problems, the chance of , and starting new medication. Source of History: patient Onset: this morning Position: eye (bilateral) Quality: other (shadow following her hand) Timing: constant Modifying Factors (Relieving): other (closing one eye - still present) Associated Symptoms: No headache, No chest pain, No SOB, No abdominal pain Note: Associated symptoms: lightheaded, dizzy, tingling to her bilateral hands Denies: hitting her head, trouble swallowing, trouble talking, a history of eye problems, the chance of , and starting new medication. Review of Systems See HPI for pertinent positives & negatives. A total of 10 systems reviewed and were otherwise negative. Past Medical & Surgical Medical Problems: (1) Multiple sclerosis (2) Symptomatic stenosis of left carotid artery Old medical records were reviewed. Nurse's notes were reviewed and I agree with. Family History Diabetes mellitus FH: heart disease FH: lung disease FHx: gallbladder disease Hypertension Kidney disease Kidney stones Social History Smoking Status: Current Every Day Smoker Alcohol Use: occasionally Marital Status: Housing Status: lives with family Occupation Status: employed Current/Historical Medications Scheduled Aspirin (Aspirin EC Low Dose), 81 MG PO QAM Calcium Carbonate-Vitamin D (Calcium 600+D), 1 TAB PO DAILY Cholecalciferol (Vitamin D3), 5,000 INTER.UNIT PO DAILY Cyanocobalamin (Cyanocobalamin), 1,000 MCG IM MONTHLY Ferrous Sulfate (Ferrous Sulfate), 325 MG PO QAM Fluticasone Propionate (Nasal) (Flonase Allergy Relief Ch), 2 SPRAYS NA DAILY Folic Acid (Folic Acid), 1 MG PO QAM Glatiramer Acetate (Copaxone), 20 MG SC HS Hydrochlorothiazide (Hctz), 25 MG PO QAM Hydroxyzine Pamoate (Vistaril), 100 MG PO HS Lisinopril (Zestril), 40 MG PO QAM Pregabalin (Lyrica), 75 MG PO QAM Pregabalin (Lyrica), 150 MG PO HS Propranolol Hcl (Inderal La), 1 CAP PO DAILY Ropinirole (Requip), 2 MG PO HS Sertraline Hcl (Zoloft), 100 MG PO BID Simvastatin (Zocor), 80 MG PO QPM Topiramate (Topiramate), 200 MG PO BID Scheduled PRN Acetamin/Butalbital/Caffeine (Fioricet), 1 TAB PO Q4 PRN for Migraine Cyclobenzaprine Hcl (Flexeril), 10 MG PO TID PRN for Muscle Spasm Indomethacin (Indocin), 50 MG PO BID PRN for Headache Ipratropium-Albuterol (Combivent Respimat), 1 PUFF INH QID PRN for SOB/Wheezing Ondansetron Odt (Zofran Odt), 8 MG SL Q6H PRN for Nausea Oxycodone/Acetaminophen 5MG/325MG (Percocet 5MG/325MG), 1-2 TABLETS PO QID PRN for Pain Allergies Coded Allergies: No Known Allergies (Verified , 06/29/17) Physical Exam Vital Signs Date Time Temp Pulse Resp B/P (MAP) Pulse Ox O2 Delivery O2 Flow Rate FiO2 05/02/18 17:32 95 18 115/76 100 Room Air 94 118/73 99 99/69 05/02/18 16:50 93 05/02/18 16:08 36.6 104 17 127/81 97 Room Air Physical Exam General: Non-ill appearing middle-aged female in no acute distress. HEENT: Normal cephalic atraumatic. Pupils are equal round and reactive to light. Extraocular movements are intact. Oropharynx is pink with moist mucous membranes. No swelling of the mouth lips or tongue. Neck: Supple with a midline trachea. No meningeal signs or stiffness, no JVD or bruits. No Stridor. Chest: Clear to auscultation bilaterally. No wheezes or rhonchi. No increased work of breathing. Heart: regular rate and rhythm. Abdomen: Soft nontender, nondistended without rebound guarding or rigidity. Extremities: No cyanosis clubbing or edema. No calf tenderness or assymetry Spine/Back. Non tender to palpation. No CVA tenderness Skin: Good turgor without rashes. Neurologic exam: Cranial nerves two through 12 are intact. Motor and sensation are intact and symmetrical throughout. No tremor. Finger to nose intact. Medical Decision & Procedures ER Provider Diagnostic Interpretation: CT results as stated below per my review and radiologist interpretation: HEAD WITHOUT CONTRAST (CT) CT DOSE: 655.73 mGy.cm HISTORY: Mental status change visual disturbance, hx of stroke, ms TECHNIQUE: Multiaxial CT images of the head were performed without the use of intravenous contrast. A dose lowering technique was utilized adhering to the principles of ALARA. Comparison: 11/29/2014 Findings: The paranasal sinuses and mastoid air cells are clear. The calvarium and skull base are intact. The ventricles and sulci are within normal limits. There is no mass, hematoma, midline shift, or acute infarct. Impression: No acute intracranial abnormality. The above report was generated using voice recognition software. It may contain grammatical, syntax or spelling errors. Electronically signed by: Lloyd Kaiser M.D. 05/02/2018 5:20 PM Dictated Date/Time: 05/02/2018 5:19 PM Laboratory Results 05/02/18 16:52 Red Blood Count 4.64, Mean Corpuscular Volume 90.3, Mean Corpuscular Hemoglobin 30.6, Mean Corpuscular Hemoglobin Concent 33.9, Mean Platelet Volume 9.3, Neutrophils (%) (Auto) 59.2, Lymphocytes (%) (Auto) 33.2, Monocytes (%) (Auto) 5.4, Eosinophils (%) (Auto) 1.6, Basophils (%) (Auto) 0.4, Neutrophils # (Auto) 4.91, Lymphocytes # (Auto) 2.75, Monocytes # (Auto) 0.45, Eosinophils # (Auto) 0.13, Basophils # (Auto) 0.03 05/02/18 16:52 Test 05/02/18 16:52 05/02/18 17:05 White Blood Count 8.29 K/uL (4.8-10.8) Red Blood Count 4.64 M/uL (4.2-5.4) Hemoglobin 14.2 g/dL (12.0-16.0) Hematocrit 41.9 % (37-47) Mean Corpuscular Volume 90.3 fL (80-100) Mean Corpuscular Hemoglobin 30.6 pg (25-34) Mean Corpuscular Hemoglobin Concent 33.9 g/dl (32-36) Platelet Count 266 K/uL (130-400) Mean Platelet Volume 9.3 fL (7.4-10.4) Neutrophils (%) (Auto) 59.2 % Lymphocytes (%) (Auto) 33.2 % Monocytes (%) (Auto) 5.4 % Eosinophils (%) (Auto) 1.6 % Basophils (%) (Auto) 0.4 % Neutrophils # (Auto) 4.91 K/uL (1.4-6.5) Lymphocytes # (Auto) 2.75 K/uL (1.2-3.4) Monocytes # (Auto) 0.45 K/uL (0.11-0.59) Eosinophils # (Auto) 0.13 K/uL (0-0.5) Basophils # (Auto) 0.03 K/uL (0-0.2) RDW Standard Deviation 47.4 fL (36.4-46.3) RDW Coefficient of Variation 14.4 % (11.5-14.5) Immature Granulocyte % (Auto) 0.2 % Immature Granulocyte # (Auto) 0.02 K/uL (0.00-0.02) Anion Gap 8.0 mmol/L (3-11) Est Creatinine Clear Calc Drug Dose 107.0 ml/min Estimated GFR () 91.9 Estimated GFR (Non- 79.3 BUN/Creatinine Ratio 11.0 (10-20) Calcium Level 8.3 mg/dl (8.5-10.1) Total Bilirubin 0.2 mg/dl (0.2-1) Direct Bilirubin < 0.1 mg/dl (0-0.2) Aspartate Amino Transf (AST/SGOT) 10 U/L (15-37) Alanine Aminotransferase (ALT/SGPT) 20 U/L (12-78) Alkaline Phosphatase 90 U/L (45-117) Total Protein 7.2 gm/dl (6.4-8.2) Albumin 3.6 gm/dl (3.4-5.0) Lipase 100 U/L (73-393) Human Chorionic Gonadotropin, Qual NEG (NEG) Bedside Troponin I < 0.030 ng/ml (0-0.045) Laboratory studies as stated above per my review. ECG Per My Interpretation Indication: other (dizziness) Rate (beats per minute): 96 Rhythm: normal sinus Findings: no acute ischemic change, prolonged QT, other (LVH, Poor baseline) Comparison ECG Date: 11/29/17 Change: QT interval has increased. ED Course 1614: Past medical records reviewed. The patient was evaluated in room C03, and a complete history and physical examination were performed. 1704: I reevaluated the patient. She is feeling comfortable. She is waiting to have her brain scan completed. 175: I reevaluated the patient. She is resting comfortable. 181: I discussed the patient's case with Dr. Manning, Neurology. He agrees with the treatment plan. 1818: Upon reevaluation, the patient is resting comfortably. I discussed the results and treatment plan with her. She verbalized agreement of the treatment plan. The patient was discharged home. Medical Decision Differentials include, but are not limited to; electrolyte or metabolic abnormality, MS exacerbation, CVA, intracranial process, dehydration. This patient comes in as described above. She was placed in room C3. She has had symptoms since 9:00 last evening and therefore is well outside tPA or stroke alert. She was stumbling last night and felt weak which is not unusual for her she also noticed that she has visual changes where she feels like when she tracks her eyes there is a shadow. This occurs both with monocular and binocular vision. She has no other new numbness or weakness or any other new neurologic symptoms. She has had a stroke in the past as well as MS. She had no trauma when she fell. IV access established CAT scan of her head was obtained as well as EKG and multiple blood testing. She was reassessed frequently. She has remained stable. CAT scan of her head is unremarkable EKG does not suggest acute coronary syndrome or arrhythmia. She is no acute electrolyte or metabolic abnormalities. Visual acuity was 20/30 in the left eye and 20/70 in the right eye. She is supposed to wear glasses. she does not appoint with her eye doctor on Thursday. I attempted look at her fundi but was unable to fully visualize them and on dilated exam. She has no visual field cuts on my exam. The vision shadow she sees is both monocular and binocular. I did discuss case with Dr. Manning. He agrees with sending her home. I discussed it with her to at this point will not start on any steroids. She will follow- up with neurology and ophthalmology and return if: worsening of symptoms, numbness or weakness, fever or chills, any new problems or concerns. Family is happy the plan and she was discharged to home. Medication Reconcilliation Current Medication List: was personally reviewed by me Blood Pressure Screening Patient's blood pressure: Normal blood pressure Blood pressure disposition: Did not require urgent referral Consults Time Called: 1803 Consulting Physician: Dr. Manning, Neurology Returned Call: [phone] I discussed the patient's case with Dr. Manning, Neurology. He agrees with the treatment plan. Impression Primary Impression: Dizziness Additional Impression: Visual changes Scribe Attestation The scribe's documentation has been prepared under my direction and personally reviewed by me in its entirety. I confirm that the note above accurately reflects all work, treatment, procedures, and medical decision making performed by me. Departure Information Dispostion Home / Self-Care Referrals Damaris Gibson.Carloz PA-C (PCP) Forms HOME CARE DOCUMENTATION FORM, IMPORTANT VISIT INFORMATION Patient Instructions My [facility] Additional Instructions Rest. Drink plenty of fluids Keep your appointment with your eye doctor on Thursday Return to the ER if: Worsening of vision, numbness or weakness, chest pain, shortness breath, fever chills, any new problems or concerns Follow-up with neurology this week as well. Problem Qualifiers
[2018-05-02] MEDS ORDERED: FLUT1SPR12 (16:48)
[2018-05-02] MEDS ORDERED: HYDR100C PO (16:48)
[2018-05-02] MEDS ORDERED: CALC-578 PO (16:48)
[2018-05-02] MEDS ORDERED: FRCT/ PO (16:48)
[2018-05-02] MEDS ORDERED: INDO50CA97 PO (16:48)
[2018-05-02] MEDS ORDERED: SIMV80TA2 PO (16:48)
[2018-05-02] MEDS ORDERED: OXYC-57 PO (16:48)
[2018-05-02] MEDS ORDERED: HYDR25TA4 PO (16:48)
[2018-05-02 17:07] LABS: BASO % 0.4 %; BASO ABS # 0.03 K/uL (0-0.2); EOS % 1.6 %; EOS ABS # 0.13 K/uL (0-0.5); HEMATOCRIT 41.9 % (37-47); HEMOGLOBIN 14.2 g/dL (12.0-16.0); IG# 0.02 K/uL (0.00-0.02); LYMPH % 33.2 %; LYMPH ABS # 2.75 K/uL (1.2-3.4); MEAN CELL VOLUME 90.3 fL (80-100); MEAN CORPUSCULAR HEMOGLOBIN 30.6 pg (25-34); MEAN CORPUSCULAR HGB CONC 33.9 g/dl (32-36); MEAN PLATELET VOLUME 9.3 fL (7.4-10.4); MONO % 5.4 %; MONO ABS # 0.45 K/uL (0.11-0.59); NEUT % 59.2 %; NEUT ABS # 4.91 K/uL (1.4-6.5); PLATELET COUNT 266 K/uL (130-400); RED CELL DISTRIBUTION WIDTH CV 14.4 % (11.5-14.5); RED CELL DISTRIBUTION WIDTH SD 47.4 fL (36.4-46.3); WHITE BLOOD COUNT 8.29 K/uL (4.8-10.8)
--- NOTE | 2018-05-02 17:21 | DIAGNOSTIC IMAGING REPORT ---
HEAD WITHOUT CONTRAST (CT) CT DOSE: 655.73 mGy.cm HISTORY: Mental status change visual disturbance, hx of stroke, ms TECHNIQUE: Multiaxial CT images of the head were performed without the use of intravenous contrast. A dose lowering technique was utilized adhering to the principles of ALARA. Comparison: 11/29/2014 Findings: The paranasal sinuses and mastoid air cells are clear. The calvarium and skull base are intact. The ventricles and sulci are within normal limits. There is no mass, hematoma, midline shift, or acute infarct. Impression: No acute intracranial abnormality. The above report was generated using voice recognition software. It may contain grammatical, syntax or spelling errors. Electronically signed by: Lloyd Kaiser M.D. 05/02/2018 5:20 PM Dictated Date/Time: 05/02/2018 5:19 PM
[2018-05-02 17:24] LABS: ALBUMIN 3.6 gm/dl (3.4-5.0); ALKALINE PHOSPHATASE 90 U/L (45-117); ALT/SGPT 20 U/L (12-78); AST/SGOT 10 U/L (15-37); BLOOD UREA NITROGEN 10 mg/dl (7-18); CALCIUM 8.3 mg/dl (8.5-10.1); CARBON DIOXIDE 24 mmol/L (21-32); CREATININE 0.87 mg/dl (0.60-1.20); GLUCOSE 178 mg/dl (70-99); LIPASE 100 U/L (73-393); SODIUM 139 mmol/L (136-145); TOTAL PROTEIN 7.2 gm/dl (6.4-8.2)
[2018-05-02 18:35] VITALS: BP 99/69; PULSE 87; TEMP 36.6; O2SAT 97
== END 2018-05-02 18:37 | disposition home or self-care (01) ==
LOC: C.EDB 16:06 → C.EDC 18:37
DX: R42 Dizziness and giddiness (principal); H53.9 Unspecified visual disturbance; G35 Multiple sclerosis; F17.210 Nicotine dependence, cigarettes, uncomplicated; Z86.73 Personal history of transient ischemic attack (TIA), and cerebral infarction without residual deficits; Z83.3 Family history of diabetes mellitus; Z83.79 Family history of other diseases of the digestive system; Z82.49 Family history of ischemic heart disease and other diseases of the circulatory system; Z84.1 Family history of disorders of kidney and ureter; Z83.6 Family history of other diseases of the respiratory system; Z79.82 Long term (current) use of aspirin; Z79.899 Other long term (current) drug therapy